=== PATIENT | female | born 1935 | race Caucasian/White ===

== ENCOUNTER 2017-01-30 14:05 | Inpatient (IN) | payer OTHER, MEDICAID ==
[2017-01-30] MEDS ORDERED: NS 1000 ML 1,000 ML ONE (15:57)
[2017-01-30 16:22] VITALS: BMI 33.3
[2017-01-30] MEDS ORDERED: NS 1000 ML 1,000 ML IV ONE (16:47)
[2017-01-30] MEDS ORDERED: NS 1000 ML 1,000 ML IV PRN (16:48)
[2017-01-30] MEDS ORDERED: NS 1000 ML 1,000 ML IV SCH (17:00)
[2017-01-30 18:58] LABS: BASOPHILS % (AUTO) 0.6 % (0.2-1.0); EOSINOPHILS # (AUTO) 0.2 x10^3/uL (0.0-0.2); EOSINOPHILS % (AUTO) 3.2 % (0.9-2.9); HEMATOCRIT 30.5 % (36.0-47.0); HEMOGLOBIN 10.2 g/dL (12.0-16.0); LYMPHOCYTES # (AUTO) 2.3 X10^3/uL (1.3-2.9); LYMPHOCYTES % (AUTO) 34.1 % (21.0-51.0); MEAN CORPUSCULAR HEMOGLOBIN 32.2 pg (27.0-34.0); MEAN CORPUSCULAR HGB CONC 33.5 g/dL (33.0-35.0); MEAN PLATELET VOLUME 8.9 fL (7.4-11.0); MONOCYTES # (AUTO) 0.8 x10^3/uL (0.3-0.8); MONOCYTES % (AUTO) 11.6 % (0.0-13.0); NEUTROPHILS # (AUTO) 3.4 x10^3/uL (2.2-4.8); NEUTROPHILS % (AUTO) 50.5 % (42.0-75.0); PLATELET COUNT 100 X10^3/uL (150.0-450.0); RED BLOOD COUNT 3.17 X10^6/uL (3.5-5.4); RED CELL DISTRIBUTION WIDTH 14.8 % (11.6-16.5); WHITE BLOOD COUNT 6.7 X10^3/uL (3.6-10.0)
[2017-01-30 19:06] LABS: CHLORIDE 109 mmol/L (98-107); SODIUM 144 mmol/L (136-145)
[2017-01-30 19:39] LABS: ALANINE AMINOTRANSFERASE 12 Units/L (12-78); ALBUMIN 2.4 g/dL (3.4-5.0); ALKALINE PHOSPHATASE 115 Units/L (46-116); ASPARTATE AMINO TRANSFERASE 19 Units/L (15-37); BLOOD UREA NITROGEN 73 mg/dL (7-18); CALCIUM 8.2 mg/dL (8.5-10.1); CARBON DIOXIDE 29.9 mmol/L (21-32); CKMB % 4.2 % (<4); COR CA(FOR HYPOALB) 9.5 mg/dL (8.5-10.1); COR NA(FOR HYPERGLY) 145 mmol/L (136-145); CREATINE KINASE 57 Units/L (26-192); CREATINE KINASE MB 2.4 ng/mL (0-4.0); CREATININE 3.62 mg/dL (0.55-1.02); TOTAL PROTEIN 6.8 g/dL (6.4-8.2); TROPONIN I < 0.02 ng/mL (0-1.5); eGFR BLACK RACES 16 (>60); eGFR NON BLACK RACES 13 (>60)
[2017-01-30 20:04] LABS: BILIRUBIN,URINE NEGATIVE (NEGATIVE); BLOOD/HEMOGLOBIN,URINE 4+ (NEGATIVE); GLUCOSE, URINE NEGATIVE (NEGATIVE); KETONES,URINE NEGATIVE (NEGATIVE); LEUKOCYTE ESTERASE ,URINE 3+ (NEGATIVE); NITRITES,URINE NEGATIVE (NEGATIVE); PROTEIN,URINE 3+ (NEGATIVE); UROBILINOGEN,URINE 1+ (NORMAL)
[2017-01-30 20:07] LABS: APPEARANCE,URINE TURBID (CLEAR); COLOR,URINE YELLOW (YELLOW)
[2017-01-30 20:12] LABS: BACTERIA,URINE 3+ /HPF (NEGATIVE); RBC,URINE TNTC /HPF (NEGATIVE); SQUAMOUS EPITHELIAL CELL,UR RARE /HPF (NEGATIVE)
[2017-01-30] MEDS ORDERED: DUONEB 0.5 MG/3 MG NEB SCH (21:00)
[2017-01-30] MEDS: NORCO 10/325 TAB PO PRN (21:25)
[2017-01-31 00:18] LABS: CREATINE KINASE 62 Units/L (26-192); CREATINE KINASE MB 3.1 ng/mL (0-4.0); TROPONIN I < 0.02 ng/mL (0-1.5)
[2017-01-31] MEDS: DUONEB 0.5 MG/3 MG NEB SCH ×5 (00:36→17:06)
[2017-01-31] MEDS: NS 1000 ML 1,000 ML IV SCH ×2 (04:45→21:16)
[2017-01-31 06:07] LABS: BASOPHILS % (AUTO) 0.2 % (0.2-1.0); EOSINOPHILS # (AUTO) 0.2 x10^3/uL (0.0-0.2); EOSINOPHILS % (AUTO) 3.4 % (0.9-2.9); HEMATOCRIT 28.6 % (36.0-47.0); HEMOGLOBIN 9.6 g/dL (12.0-16.0); LYMPHOCYTES # (AUTO) 2.9 X10^3/uL (1.3-2.9); LYMPHOCYTES % (AUTO) 40.2 % (21.0-51.0); MEAN CORPUSCULAR HEMOGLOBIN 32.2 pg (27.0-34.0); MEAN CORPUSCULAR HGB CONC 33.5 g/dL (33.0-35.0); MEAN CORPUSCULAR VOLUME 96.2 fL (80.0-100.0); MEAN PLATELET VOLUME 9.2 fL (7.4-11.0); MONOCYTES # (AUTO) 0.6 x10^3/uL (0.3-0.8); MONOCYTES % (AUTO) 8.7 % (0.0-13.0); NEUTROPHILS # (AUTO) 3.5 x10^3/uL (2.2-4.8); NEUTROPHILS % (AUTO) 47.5 % (42.0-75.0); PLATELET COUNT 98 X10^3/uL (150.0-450.0); RED BLOOD COUNT 2.97 X10^6/uL (3.5-5.4); RED CELL DISTRIBUTION WIDTH 14.6 % (11.6-16.5); WHITE BLOOD COUNT 7.3 X10^3/uL (3.6-10.0)
[2017-01-31 06:25] LABS: ALANINE AMINOTRANSFERASE 11 Units/L (12-78); ALBUMIN 2.3 g/dL (3.4-5.0); ALKALINE PHOSPHATASE 111 Units/L (46-116); ASPARTATE AMINO TRANSFERASE 19 Units/L (15-37); BLOOD UREA NITROGEN 66 mg/dL (7-18); CALCIUM 8.3 mg/dL (8.5-10.1); CARBON DIOXIDE 27.8 mmol/L (21-32); CHLORIDE 110 mmol/L (98-107); CKMB % 5.6 % (<4); COR CA(FOR HYPOALB) 9.7 mg/dL (8.5-10.1); CREATINE KINASE 50 Units/L (26-192); CREATINE KINASE MB 2.8 ng/mL (0-4.0); CREATININE 3.21 mg/dL (0.55-1.02); SODIUM 145 mmol/L (136-145); TOTAL PROTEIN 6.7 g/dL (6.4-8.2); TROPONIN I < 0.02 ng/mL (0-1.5); eGFR BLACK RACES 18 (>60); eGFR NON BLACK RACES 15 (>60)
--- NOTE | 2017-01-31 07:56 | DR.H&P ---
H&P - History & Physical for Day of: H&P Date: 01/30/17 - Chief Complaint Chief Complaint: AMS - Allergies Allergies/Adverse Reactions: Allergies Allergy/AdvReac Type Severity Reaction Status Date / Time aspirin Allergy Verified 01/30/17 15:42 diphenhydramine Allergy Verified 01/30/17 15:43 [From Benadryl] lisinopril Allergy Verified 01/30/17 15:43 zolpidem [From Ambien] Allergy Verified 01/30/17 15:42 - History of Present Illness History of Present Illness: The patient is a 81-year-old white female who is a resident of [facility]. Patient is noted by staff to have increased altered mental status. Patient had lab work performed which revealed an elevated creatinine. The patient did have a CT which did not reveal an acute finding at that time. Patient will be admitted secondary to increased confusion. - Past Medical History Past Medical History: COPD, GERD, Hypertension, PUD Additional Medical History: Lumbar DDD with hx FX - Past Surgical History Surgical History: Hysterectomy, Ortho Surgery Additional Surgical History: Posterior cervical and lumbar laminectomy, orif left ankle, egd - Social History Does patient currently use any type of tobacco product: No Have you used tobacco products in the last 12 months: No Type of Tobacco Use: None Does any household member use tobacco: No Alcohol Use: None Drug Use: None - Medications Home Medications: Alprazolam [Xanax 1 mg] 1 mg PO DAILY PRN 01/30/17 [History Confirmed 01/30/17] Amlodipine Besylate [Norvasc] 2.5 mg PO DAILY 01/30/17 [History Confirmed ] Benzonatate [TESSALON PERLES *] 1 tab PO Q8H PRN 01/30/17 [History Confirmed 02/06] Clonidine HCl [CATAPRES 0.1 MG TAB *] 1 tab PO DAILY 01/30/17 [History Confirmed 01/30/17] Doxepin HCl 1 tab PO HS 01/30/17 [History Confirmed 01/30/17] Duloxetine HCl [CYMBALTA 60 MG *] 1 tab PO HS 01/30/17 [History Confirmed ] Furosemide [LASIX TAB 40 MG *] 1 tab PO BID 01/30/17 [History Confirmed 01/30/17 ] Gabapentin [NEURONTIN CAP 300 mg *] 1 tab PO HS 01/30/17 [History Confirmed 02/06] Hydrocodone-Acet 10/325 mg [NORCO 10 MG/325 MG *] 1 tab PO Q6H PRN 01/30/17 [ History Confirmed 01/30/17] Ipratropium/Albuterol Nebule [DUONEB 0.5 MG/3 MG NEBULE *] 1 unit IN Q6H [History Confirmed 01/30/17] Meloxicam [Mobic] 1 tab PO DAILY 01/30/17 [History Confirmed 01/30/17] Metoprolol Tartrate 1 tab PO BID 01/30/17 [History Confirmed 01/30/17] Nystatin (Topical) [NYSTATIN TOP CRM *] 1 dose TOP Q12H PRN 01/30/17 [History Confirmed 01/30/17] Omeprazole Magnesium 1 tab PO DAILY 01/30/17 [History Confirmed 01/30/17] - Review of Systems Constitutional: Malaise Eyes: No Symptoms Reported ENT: No Symptoms Reported Respiratory: No Symptoms Reported Cardiovascular: No Symptoms Reported Gastrointestinal: No Symptoms Reported Genitourinary: No Symptoms Reported Musculoskeletal: No Symptoms Reported Skin: No Symptoms Reported Neurological: No Symptoms Reported - Physical Exam Vital Signs: Temperature 98.4 F Pulse Rate [Right Radial] 59 Pulse Rate 54 Respiratory Rate 18 Blood Pressure [Right Arm] 95/54 O2 Sat by Pulse Oximetry 98 Oriented: Person Eyes: Normal Ear: Normal Nose: Normal Throat: Normal Respiratory: Clear Throughout Cardiovascular: Bradycardia : Normal Auscultation: Bowel Sounds: Normal Palpation: Normal Tenderness: Normal Skin: Decreased Turgur Musculoskeletal: Back:Lumbar, Tender Psychiatric: Normal Mood Description: Calm Affect: Quiet Speech Pattern: Slurred - Assessment/Plan (1) Altered mental status Status: Acute Plan: CBC, CMP, urine, urine C&S, NS @ 80ml/hr x 1 liter (2) UTI (urinary tract infection) Status: Acute Plan: Urine culture. Rocephin 1gm IV Q Day (3) Acute on chronic kidney failure Status: Acute Plan: IVFs with NS, Monitor labs
[2017-01-31] MEDS ORDERED: NORCO 10/325 TAB PO PRN (08:01)
[2017-01-31] MEDS ORDERED: DUONEB 0.5 MG/3 MG IN SCH (08:15)
[2017-01-31] MEDS ORDERED: OMEPRAZOLE MAGNESIUM PO SCH (09:00)
[2017-01-31] MEDS: PriLOSEC PO SCH (09:51)
[2017-01-31] MEDS: ROCEPHIN VIAL 1 GM 1 GM in NS 50 ML IV + SPIKE MINIBAG* 50 ML IV SCH ×4 (09:51→09:52)
[2017-01-31] MEDS: NORCO 10/325 TAB PO PRN ×2 (11:09→21:05)
--- NOTE | 2017-01-31 11:55 | RAD ---
HISTORY: Difficulty breathing Study: Portable chest Comparison: None Findings: The heart is mildly enlarged. The pulmonary vessels are engorged centrally and more prominent . There are hazy perihilar and bibasilar interstitial and linear densities . No effusion is seen . There are Lewis rods along the thoracolumbar spine. IMPRESSION: Mild cardiomegaly and mild pulmonary edema Questionable mild atelectasis or early infiltrates along the lung bases. Reported By:
--- NOTE | 2017-01-31 18:42 | DR.H&P ---
H&P - History & Physical for Day of: H&P Date: 01/31/17 - Chief Complaint Chief Complaint: 81 WF ADMITTED ONE DAY AGO WITH GENERALIZED WEAKNESS AMS DUE TO UROSEPSIS. PT URINE CULTURE PENDING. PT CO LOWER BACK PAIN. PT ATE BREAKFAST THIS AM WITHOUT NAUSEA. PT STATES SHE STILL FEELS WEAK - Allergies Allergies/Adverse Reactions: Allergies Allergy/AdvReac Type Severity Reaction Status Date / Time aspirin Allergy Verified 01/30/17 15:42 diphenhydramine Allergy Verified 01/30/17 15:43 [From Benadryl] lisinopril Allergy Verified 01/30/17 15:43 zolpidem [From Ambien] Allergy Verified 01/30/17 15:42 - Past Medical History Past Medical History: COPD, GERD, Hypertension, PUD Additional Medical History: Lumbar DDD with hx FX - Past Surgical History Surgical History: Hysterectomy, Ortho Surgery Additional Surgical History: Posterior cervical and lumbar laminectomy, orif left ankle, egd - Social History Does patient currently use any type of tobacco product: No Have you used tobacco products in the last 12 months: No Type of Tobacco Use: None Does any household member use tobacco: No Alcohol Use: None Drug Use: None - Medications Home Medications: Alprazolam [Xanax 1 mg] 1 mg PO DAILY PRN 01/30/17 [History Confirmed 01/30/17] Amlodipine Besylate [Norvasc] 2.5 mg PO DAILY 01/30/17 [History Confirmed ] Benzonatate [TESSALON PERLES *] 1 tab PO Q8H PRN 01/30/17 [History Confirmed 02/06] Clonidine HCl [CATAPRES 0.1 MG TAB *] 1 tab PO DAILY 01/30/17 [History Confirmed 01/30/17] Doxepin HCl 1 tab PO HS 01/30/17 [History Confirmed 01/30/17] Duloxetine HCl [CYMBALTA 60 MG *] 1 tab PO HS 01/30/17 [History Confirmed ] Furosemide [LASIX TAB 40 MG *] 1 tab PO BID 01/30/17 [History Confirmed 01/30/17 ] Gabapentin [NEURONTIN CAP 300 mg *] 1 tab PO HS 01/30/17 [History Confirmed 02/06] Hydrocodone-Acet 10/325 mg [NORCO 10 MG/325 MG *] 1 tab PO Q6H PRN 01/30/17 [ History Confirmed 01/30/17] Ipratropium/Albuterol Nebule [DUONEB 0.5 MG/3 MG NEBULE *] 1 unit IN Q6H [History Confirmed 01/30/17] Meloxicam [Mobic] 1 tab PO DAILY 01/30/17 [History Confirmed 01/30/17] Metoprolol Tartrate 1 tab PO BID 01/30/17 [History Confirmed 01/30/17] Nystatin (Topical) [NYSTATIN TOP CRM *] 1 dose TOP Q12H PRN 01/30/17 [History Confirmed 01/30/17] Omeprazole Magnesium 1 tab PO DAILY 01/30/17 [History Confirmed 01/30/17] - Physical Exam Vital Signs: Temperature 97.5 F Pulse Rate [Right Radial] 85 Pulse Rate 68 Respiratory Rate 19 Blood Pressure [Right Arm] 121/63 O2 Sat by Pulse Oximetry 98 Oriented: Person
--- NOTE | 2017-01-31 18:46 | PCM.PROG ---
Progress Note - Progress Note for Day of Date: 01/31/17 - Subjective Subjective: 81 WF ADMITTED ONE DAY AGO WITH GENERALIZED WEAKNESS AMS DUE TO UROSEPSIS. PT URINE CULTURE PENDING. PT CO LOWER BACK PAIN. PT ATE BREAKFAST THIS AM WITHOUT NAUSEA. PT STATES SHE STILL FEELS WEAK - Past Medical Family Social History Past Med/Fam/Surg Hx: No changes since H&P Allergies: Allergies aspirin Allergy (Verified 01/30/17 15:42) diphenhydramine [From Benadryl] Allergy (Verified 01/30/17 15:43) lisinopril Allergy (Verified 01/30/17 15:43) zolpidem [From Ambien] Allergy (Verified 01/30/17 15:42) - Review of Systems ROS: No change since H&P - Vital Signs and I&O's Vital Signs: Temperature 97.5 F Pulse Rate [Right Radial] 85 Pulse Rate 68 Respiratory Rate 19 Blood Pressure [Right Arm] 121/63 O2 Sat by Pulse Oximetry 98 Intake and Output: Intake & Output 01/29/17 01/30/17 01/31/17 02/01/17 11:59 11:59 11:59 11:59 Intake Total 1447 1180 Output Total 1250 600 Balance 197 580 - Physical Exam Oriented: Person Eyes: Normal Ear: Normal Nose: Normal Throat: Normal Respiratory: Diminished Cardiovascular: Bradycardia : Normal Auscultation: Bowel Sounds: Normal Tenderness: Suprapubic Skin: Decreased Turgur Musculoskeletal: Back:Lumbar, Tender Psychiatric: Normal Mood Description: Calm Affect: Quiet Speech Pattern: Slurred - Laboratory and Diagnostics Result Diagrams: 01/31/17 05:25 01/31/17 05:25 Labs: 01/30/17 19:41 Urine,Catheterized Urine Culture - Preliminary Laboratory WBC 7.3 X10^3/uL (3.6-10.0) 01/31/17 05:25 RBC 2.97 X10^6/uL (3.5-5.4) L 01/31/17 05:25 Hgb 9.6 g/dL (12.0-16.0) L 01/31/17 05:25 Hct 28.6 % (36.0-47.0) L 01/31/17 05:25 MCV 96.2 fL (80.0-100.0) 01/31/17 05:25 MCH 32.2 pg (27.0-34.0) 01/31/17 05:25 MCHC 33.5 g/dL (33.0-35.0) 01/31/17 05:25 RDW 14.6 % (11.6-16.5) 01/31/17 05:25 Plt Count 98 X10^3/uL (150.0-450.0) L 01/31/17 05:25 Plt Count Comment Cancelled 01/31/17 05:25 MPV 9.2 fL (7.4-11.0) 01/31/17 05:25 Neut % 47.5 % (42.0-75.0) 01/31/17 05:25 Lymph % 40.2 % (21.0-51.0) 01/31/17 05:25 [place] % 8.7 % (0.0-13.0) 01/31/17 05:25 Eos % 3.4 % (0.9-2.9) H 01/31/17 05:25 Baso % 0.2 % (0.2-1.0) 01/31/17 05:25 Neut # 3.5 x10^3/uL (2.2-4.8) 01/31/17 05:25 Lymph # 2.9 X10^3/uL (1.3-2.9) 01/31/17 05:25 [place] # 0.6 x10^3/uL (0.3-0.8) 01/31/17 05:25 Eos # 0.2 x10^3/uL (0.0-0.2) 01/31/17 05:25 Baso # 0.0 X10^3/uL (0.0-0.1) 01/31/17 05:25 Absolute Nucleated RBC 0.0 /100WBC 01/31/17 05:25 Nucleated RBCs Cancelled 01/31/17 05:25 Atypical Lymphocytes Cancelled 01/31/17 05:25 Blast Cells Cancelled 01/31/17 05:25 Smudge Cells Cancelled 01/31/17 05:25 Toxic Granulation Cancelled 01/31/17 05:25 Dohle Bodies Cancelled 01/31/17 05:25 Fabby Rods Cancelled 01/31/17 05:25 Plt Clumps, EDTA Cancelled 01/31/17 05:25 Giant Platelets Cancelled 01/31/17 05:25 Plt Morphology Comment Cancelled 01/31/17 05:25 RBC Morphology Cancelled 01/31/17 05:25 Dimorphic RBCs Cancelled 01/31/17 05:25 Polychromasia Cancelled 01/31/17 05:25 Hypochromasia Cancelled 01/31/17 05:25 Poikilocytosis Cancelled 01/31/17 05:25 Basophilic Stippling Cancelled 01/31/17 05:25 Anisocytosis Cancelled 01/31/17 05:25 Microcytosis Cancelled 01/31/17 05:25 Macrocytosis Cancelled 01/31/17 05:25 Spherocytes Cancelled 01/31/17 05:25 Pappenheimer Bodies Cancelled 01/31/17 05:25 Sickle Cells Cancelled 01/31/17 05:25 Target Cells Cancelled 01/31/17 05:25 Tear Drop Cells Cancelled 01/31/17 05:25 Ovalocytes Cancelled 01/31/17 05:25 Stomatocytes Cancelled 01/31/17 05:25 Helmet Cells Cancelled 01/31/17 05:25 [place] Bodies Cancelled 01/31/17 05:25 [place] Rings Cancelled 01/31/17 05:25 [place] Cells Cancelled 01/31/17 05:25 Crenated Cell Cancelled 01/31/17 05:25 Acanthocytes (Spur) Cancelled 01/31/17 05:25 Rouleaux Cancelled 01/31/17 05:25 Schistocytes Cancelled 01/31/17 05:25 Sodium 145 mmol/L (136-145) 01/31/17 05:25 Corrected Sodium TNP 01/31/17 05:25 Potassium 4.6 mmol/L (3.5-5.1) 01/31/17 05:25 Chloride 110 mmol/L (98-107) H 01/31/17 05:25 Carbon Dioxide 27.8 mmol/L (21-32) 01/31/17 05:25 BUN 66 mg/dL (7-18) H 01/31/17 05:25 Creatinine 3.21 mg/dL (0.55-1.02) H 01/31/17 05:25 Est GFR (MDRD) Af Amer 18 (>60) L 01/31/17 05:25 Est GFR (MDRD) Non-Af 15 (>60) L 01/31/17 05:25 Glucose 90 mg/dL (65-99) 01/31/17 05:25 Calcium 8.3 mg/dL (8.5-10.1) L 01/31/17 05:25 Corrected Calcium 9.7 mg/dL (8.5-10.1) 01/31/17 05:25 Total Bilirubin 0.30 mg/dL (0.2-1.0) 01/31/17 05:25 AST 19 Units/L (15-37) 01/31/17 05:25 ALT 11 Units/L (12-78) L 01/31/17 05:25 Alkaline Phosphatase 111 Units/L (46-116) 01/31/17 05:25 Creatine Kinase 50 Units/L (26-192) 01/31/17 05:25 CK-MB (CK-2) 2.8 ng/mL (0-4.0) 01/31/17 05:25 CK/CKMB % Calc 5.6 % (<4) 01/31/17 05:25 Troponin I < 0.02 ng/mL (0-1.5) 01/31/17 05:25 Total Protein 6.7 g/dL (6.4-8.2) 01/31/17 05:25 Albumin 2.3 g/dL (3.4-5.0) L 01/31/17 05:25 Globulin 4.4 g/dL (2.5-4.5) 01/31/17 05:25 Albumin/Globulin Ratio 0.5 Ratio (1.1-2.1) L 01/31/17 05:25 Specimen Type Catherized urine 01/30/17 19:41 Urine Color Yellow (YELLOW) 01/30/17 19:41 Urine Appearance Turbid (CLEAR) 01/30/17 19:41 Urine pH 5.0 (5.0 - 8.0) 01/30/17 19:41 Ur Specific [place] 1.020 (1.000-1.030) 01/30/17 19:41 Urine Protein 3+ (NEGATIVE) 01/30/17 19:41 Urine Glucose (UA) Negative (NEGATIVE) 01/30/17 19:41 Urine Ketones Negative (NEGATIVE) 01/30/17 19:41 Urine Occult Blood 4+ (NEGATIVE) 01/30/17 19:41 Urine Nitrite Negative (NEGATIVE) 01/30/17 19:41 Urine Bilirubin Negative (NEGATIVE) 01/30/17 19:41 Urine Urobilinogen 1+ (NORMAL) 01/30/17 19:41 Ur Leukocyte Esterase 3+ (NEGATIVE) 01/30/17 19:41 Urine RBC Tntc /HPF (NEGATIVE) 01/30/17 19:41 Urine WBC Tntc /HPF (NEGATIVE) 01/30/17 19:41 Ur Squamous Epith Cells Rare /HPF (NEGATIVE) 01/30/17 19:41 Urine Bacteria 3+ /HPF (NEGATIVE) 01/30/17 19:41 Ur Culture Indicated? Yes/culture set up 01/30/17 19:41 - Plan (1) UTI (urinary tract infection) Status: Acute Plan: UTI WITH UROSEPSIS, Urine culture pending. Rocephin 1gm IV Q Day. continue gentle hydration, repeat am labs (2) Hypotension Status: Acute Plan: gentle hydration, diagnostic cardiac sonographer (3) Arthritis Status: Acute (4) Altered mental status Status: Acute Plan: CBC, CMP, urine, urine C&S, NS @ 80ml/hr x 1 liter
[2017-01-31] MEDS: CYMBALTA PO SCH (21:05)
[2017-02-01] MEDS: DUONEB 0.5 MG/3 MG NEB SCH ×4 (00:59→17:03)
[2017-02-01 06:41] LABS: BASOPHILS # (AUTO) 0.1 X10^3/uL (0.0-0.1); BASOPHILS % (AUTO) 0.9 % (0.2-1.0); EOSINOPHILS # (AUTO) 0.1 x10^3/uL (0.0-0.2); EOSINOPHILS % (AUTO) 0.7 % (0.9-2.9); HEMATOCRIT 30.2 % (36.0-47.0); HEMOGLOBIN 10.2 g/dL (12.0-16.0); LYMPHOCYTES # (AUTO) 1.4 X10^3/uL (1.3-2.9); LYMPHOCYTES % (AUTO) 16.9 % (21.0-51.0); MEAN CORPUSCULAR HEMOGLOBIN 32.2 pg (27.0-34.0); MEAN CORPUSCULAR HGB CONC 33.8 g/dL (33.0-35.0); MEAN CORPUSCULAR VOLUME 95.1 fL (80.0-100.0); MONOCYTES # (AUTO) 0.7 x10^3/uL (0.3-0.8); MONOCYTES % (AUTO) 7.9 % (0.0-13.0); NEUTROPHILS # (AUTO) 6.3 x10^3/uL (2.2-4.8); NEUTROPHILS % (AUTO) 73.6 % (42.0-75.0); PLATELET COUNT 116 X10^3/uL (150.0-450.0); RED BLOOD COUNT 3.18 X10^6/uL (3.5-5.4); RED CELL DISTRIBUTION WIDTH 14.8 % (11.6-16.5); WHITE BLOOD COUNT 8.5 X10^3/uL (3.6-10.0)
[2017-02-01 06:42] LABS: ALANINE AMINOTRANSFERASE 13 Units/L (12-78); ALBUMIN 2.4 g/dL (3.4-5.0); ALKALINE PHOSPHATASE 134 Units/L (46-116); ASPARTATE AMINO TRANSFERASE 25 Units/L (15-37); BLOOD UREA NITROGEN 52 mg/dL (7-18); CALCIUM 8.5 mg/dL (8.5-10.1); CARBON DIOXIDE 26.2 mmol/L (21-32); CHLORIDE 111 mmol/L (98-107); COR CA(FOR HYPOALB) 9.8 mg/dL (8.5-10.1); CREATININE 2.89 mg/dL (0.55-1.02); SODIUM 147 mmol/L (136-145); TOTAL PROTEIN 7.3 g/dL (6.4-8.2); eGFR BLACK RACES 20 (>60); eGFR NON BLACK RACES 17 (>60)
[2017-02-01] MEDS: ROCEPHIN VIAL 1 GM 1 GM in NS 50 ML IV + SPIKE MINIBAG* 50 ML IV SCH (08:09)
[2017-02-01] MEDS: PriLOSEC PO SCH (08:10)
[2017-02-01] MEDS ORDERED: BUTT CREAM (COMPOUND) ONE (10:38)
[2017-02-01] MEDS: NORCO 10/325 TAB PO PRN ×2 (13:47→21:12)
[2017-02-01] MEDS ORDERED: NS 1/2 1000 ML IV 1,000 ML IV ONE (21:04)
[2017-02-01] MEDS: CYMBALTA PO SCH (21:11)
[2017-02-01] MEDS: NS 1/2 1000 ML IV 1,000 ML IV SCH (21:11)
[2017-02-02] MEDS: DUONEB 0.5 MG/3 MG NEB SCH ×4 (01:01→17:17)
[2017-02-02 06:05] LABS: BASOPHILS % (AUTO) 0.5 % (0.2-1.0); EOSINOPHILS # (AUTO) 0.2 x10^3/uL (0.0-0.2); EOSINOPHILS % (AUTO) 1.9 % (0.9-2.9); HEMOGLOBIN 10.5 g/dL (12.0-16.0); LYMPHOCYTES # (AUTO) 2.2 X10^3/uL (1.3-2.9); LYMPHOCYTES % (AUTO) 28.1 % (21.0-51.0); MEAN CORPUSCULAR HEMOGLOBIN 32.2 pg (27.0-34.0); MEAN CORPUSCULAR HGB CONC 33.9 g/dL (33.0-35.0); MEAN CORPUSCULAR VOLUME 94.9 fL (80.0-100.0); MEAN PLATELET VOLUME 8.5 fL (7.4-11.0); MONOCYTES # (AUTO) 0.7 x10^3/uL (0.3-0.8); MONOCYTES % (AUTO) 8.8 % (0.0-13.0); NEUTROPHILS # (AUTO) 4.8 x10^3/uL (2.2-4.8); NEUTROPHILS % (AUTO) 60.7 % (42.0-75.0); PLATELET COUNT 117 X10^3/uL (150.0-450.0); RED BLOOD COUNT 3.26 X10^6/uL (3.5-5.4); RED CELL DISTRIBUTION WIDTH 14.7 % (11.6-16.5); WHITE BLOOD COUNT 7.9 X10^3/uL (3.6-10.0)
[2017-02-02 06:27] LABS: ALANINE AMINOTRANSFERASE 12 Units/L (12-78); ALBUMIN 2.4 g/dL (3.4-5.0); ALKALINE PHOSPHATASE 118 Units/L (46-116); ASPARTATE AMINO TRANSFERASE 25 Units/L (15-37); BLOOD UREA NITROGEN 36 mg/dL (7-18); CALCIUM 8.7 mg/dL (8.5-10.1); CARBON DIOXIDE 28.1 mmol/L (21-32); CHLORIDE 112 mmol/L (98-107); CREATININE 2.27 mg/dL (0.55-1.02); SODIUM 148 mmol/L (136-145); TOTAL PROTEIN 7.2 g/dL (6.4-8.2); eGFR BLACK RACES 27 (>60); eGFR NON BLACK RACES 22 (>60)
[2017-02-02] MEDS ORDERED: LASIX IVP ONE (08:00)
[2017-02-02] MEDS: ROCEPHIN VIAL 1 GM 1 GM in NS 50 ML IV + SPIKE MINIBAG* 50 ML IV SCH (08:25)
[2017-02-02] MEDS: PriLOSEC PO SCH (08:25)
[2017-02-02] MEDS: LOPRESSOR TAB 25 MG PO SCH ×3 (09:00→21:06)
[2017-02-02] MEDS: NORCO 10/325 TAB PO PRN (17:18)
[2017-02-02] MEDS ORDERED: NORVASC TAB 2.5 MG ONE (18:10)
[2017-02-02] MEDS: NORVASC TAB 2.5 MG PO SCH (18:13)
[2017-02-02] MEDS: XANAX PO PRN (18:13)
[2017-02-02] MEDS: CYMBALTA PO SCH (21:05)
[2017-02-03] MEDS: DUONEB 0.5 MG/3 MG NEB SCH ×4 (00:31→17:04)
[2017-02-03] MEDS: NORCO 10/325 TAB PO PRN ×2 (06:07→21:17)
[2017-02-03 06:10] LABS: BASOPHILS # (AUTO) 0.1 X10^3/uL (0.0-0.1); BASOPHILS % (AUTO) 0.8 % (0.2-1.0); EOSINOPHILS # (AUTO) 0.3 x10^3/uL (0.0-0.2); EOSINOPHILS % (AUTO) 3.9 % (0.9-2.9); HEMATOCRIT 28.5 % (36.0-47.0); HEMOGLOBIN 9.8 g/dL (12.0-16.0); LYMPHOCYTES # (AUTO) 2.7 X10^3/uL (1.3-2.9); MEAN CORPUSCULAR HEMOGLOBIN 32.5 pg (27.0-34.0); MEAN CORPUSCULAR HGB CONC 34.3 g/dL (33.0-35.0); MEAN CORPUSCULAR VOLUME 94.8 fL (80.0-100.0); MEAN PLATELET VOLUME 8.4 fL (7.4-11.0); MONOCYTES # (AUTO) 0.7 x10^3/uL (0.3-0.8); MONOCYTES % (AUTO) 8.4 % (0.0-13.0); NEUTROPHILS # (AUTO) 4.5 x10^3/uL (2.2-4.8); NEUTROPHILS % (AUTO) 53.9 % (42.0-75.0); PLATELET COUNT 117 X10^3/uL (150.0-450.0); RED BLOOD COUNT 3.01 X10^6/uL (3.5-5.4); RED CELL DISTRIBUTION WIDTH 15.3 % (11.6-16.5); WHITE BLOOD COUNT 8.3 X10^3/uL (3.6-10.0)
[2017-02-03 06:16] LABS: ALANINE AMINOTRANSFERASE 12 Units/L (12-78); ALBUMIN 2.3 g/dL (3.4-5.0); ALKALINE PHOSPHATASE 110 Units/L (46-116); ASPARTATE AMINO TRANSFERASE 23 Units/L (15-37); BLOOD UREA NITROGEN 28 mg/dL (7-18); CALCIUM 8.6 mg/dL (8.5-10.1); CARBON DIOXIDE 28.6 mmol/L (21-32); CHLORIDE 109 mmol/L (98-107); CREATININE 1.91 mg/dL (0.55-1.02); SODIUM 144 mmol/L (136-145); TOTAL PROTEIN 6.8 g/dL (6.4-8.2); eGFR BLACK RACES 33 (>60); eGFR NON BLACK RACES 27 (>60)
[2017-02-03] MEDS ORDERED: NS 1/2 1000 ML IV 1,000 ML IV ONE (06:24)
[2017-02-03] MEDS: NS 1/2 1000 ML IV 1,000 ML IV SCH ×2 (06:30→09:07)
[2017-02-03] MEDS ORDERED: NORVASC TAB 2.5 MG ONE (08:58)
[2017-02-03] MEDS: ROCEPHIN VIAL 1 GM 1 GM in NS 50 ML IV + SPIKE MINIBAG* 50 ML IV SCH (09:06)
[2017-02-03] MEDS: NORVASC TAB 2.5 MG PO SCH (09:07)
[2017-02-03] MEDS: LOPRESSOR TAB 25 MG PO SCH ×2 (09:07→21:17)
[2017-02-03] MEDS: PriLOSEC PO SCH (09:07)
[2017-02-03] MEDS: CYMBALTA PO SCH (21:17)
[2017-02-03] MEDS: XANAX PO PRN (21:20)
--- NOTE | 2017-02-03 21:55 | PCM.PROG ---
Progress Note - Progress Note for Day of Date: 02/03/17 - Subjective Subjective: 81 WF ADMITTED WITH GENERALIZED WEAKNESS AMS DUE TO UROSEPSIS. PT URINE CULTURE PENDING. PT CO LOWER BACK PAIN. PATIENT ALERT AND ANSWERS APPROPRIATELY. STATES SHE DOES FEEL BETTER. - Past Medical Family Social History Past Med/Fam/Surg Hx: No changes since H&P Allergies: Allergies aspirin Allergy (Verified 01/30/17 15:42) diphenhydramine [From Benadryl] Allergy (Verified 01/30/17 15:43) lisinopril Allergy (Verified 01/30/17 15:43) zolpidem [From Ambien] Allergy (Verified 01/30/17 15:42) - Review of Systems ROS: No change since H&P - Vital Signs and I&O's Vital Signs: Temperature 98.9 F Pulse Rate [Right Radial] 91 Pulse Rate 88 Respiratory Rate 18 Blood Pressure [Right Arm] 141/65 O2 Sat by Pulse Oximetry 94 Intake and Output: Intake & Output 02/01/17 02/02/17 02/03/17 02/04/17 11:59 11:59 11:59 11:59 Intake Total 2250 1632 1280 544 Output Total 1800 2350 2680 750 Balance 648 -972 -9611 -244 - Physical Exam Oriented: Person Eyes: Normal Ear: Normal Nose: Normal Throat: Normal Respiratory: Diminished Cardiovascular: Bradycardia : Normal Auscultation: Bowel Sounds: Normal Palpation: Normal Tenderness: Suprapubic Skin: Decreased Turgur Musculoskeletal: Back:Lumbar, Tender Psychiatric: Normal Mood Description: Calm Affect: Quiet Speech Pattern: Clear, Appropriate - Laboratory and Diagnostics Result Diagrams: 02/03/17 04:05 02/03/17 04:05 Labs: 01/30/17 19:41 Urine,Catheterized Urine Culture - Final Escherichia Coli 01/30/17 17:51 Blood Blood Culture - Preliminary 01/30/17 17:57 Blood Blood Culture - Preliminary Laboratory WBC 8.3 X10^3/uL (3.6-10.0) 02/03/17 04:05 RBC 3.01 X10^6/uL (3.5-5.4) L 02/03/17 04:05 Hgb 9.8 g/dL (12.0-16.0) L 02/03/17 04:05 Hct 28.5 % (36.0-47.0) L 02/03/17 04:05 MCV 94.8 fL (80.0-100.0) 02/03/17 04:05 MCH 32.5 pg (27.0-34.0) 02/03/17 04:05 MCHC 34.3 g/dL (33.0-35.0) 02/03/17 04:05 RDW 15.3 % (11.6-16.5) 02/03/17 04:05 Plt Count 117 X10^3/uL (150.0-450.0) L 02/03/17 04:05 Plt Count Comment Cancelled 01/31/17 05:25 MPV 8.4 fL (7.4-11.0) 02/03/17 04:05 Neut % 53.9 % (42.0-75.0) 02/03/17 04:05 Lymph % 33.0 % (21.0-51.0) 02/03/17 04:05 [place] % 8.4 % (0.0-13.0) 02/03/17 04:05 Eos % 3.9 % (0.9-2.9) H 02/03/17 04:05 Baso % 0.8 % (0.2-1.0) 02/03/17 04:05 Neut # 4.5 x10^3/uL (2.2-4.8) 02/03/17 04:05 Lymph # 2.7 X10^3/uL (1.3-2.9) 02/03/17 04:05 [place] # 0.7 x10^3/uL (0.3-0.8) 02/03/17 04:05 Eos # 0.3 x10^3/uL (0.0-0.2) H 02/03/17 04:05 Baso # 0.1 X10^3/uL (0.0-0.1) 02/03/17 04:05 Absolute Nucleated RBC 0.1 /100WBC 02/03/17 04:05 Nucleated RBCs Cancelled 01/31/17 05:25 Atypical Lymphocytes Cancelled 01/31/17 05:25 Blast Cells Cancelled 01/31/17 05:25 Smudge Cells Cancelled 01/31/17 05:25 Toxic Granulation Cancelled 01/31/17 05:25 Dohle Bodies Cancelled 01/31/17 05:25 Fabby Rods Cancelled 01/31/17 05:25 Plt Clumps, EDTA Cancelled 01/31/17 05:25 Giant Platelets Cancelled 01/31/17 05:25 Plt Morphology Comment Cancelled 01/31/17 05:25 RBC Morphology Cancelled 01/31/17 05:25 Dimorphic RBCs Cancelled 01/31/17 05:25 Polychromasia Cancelled 01/31/17 05:25 Hypochromasia Cancelled 01/31/17 05:25 Poikilocytosis Cancelled 01/31/17 05:25 Basophilic Stippling Cancelled 01/31/17 05:25 Anisocytosis Cancelled 01/31/17 05:25 Microcytosis Cancelled 01/31/17 05:25 Macrocytosis Cancelled 01/31/17 05:25 Spherocytes Cancelled 01/31/17 05:25 Pappenheimer Bodies Cancelled 01/31/17 05:25 Sickle Cells Cancelled 01/31/17 05:25 Target Cells Cancelled 01/31/17 05:25 Tear Drop Cells Cancelled 01/31/17 05:25 Ovalocytes Cancelled 01/31/17 05:25 Stomatocytes Cancelled 01/31/17 05:25 Helmet Cells Cancelled 01/31/17 05:25 [place] Bodies Cancelled 01/31/17 05:25 [place] Rings Cancelled 01/31/17 05:25 [place] Cells Cancelled 01/31/17 05:25 Crenated Cell Cancelled 01/31/17 05:25 Acanthocytes (Spur) Cancelled 01/31/17 05:25 Rouleaux Cancelled 01/31/17 05:25 Schistocytes Cancelled 01/31/17 05:25 Sodium 144 mmol/L (136-145) 02/03/17 04:05 Corrected Sodium TNP 02/03/17 04:05 Potassium 3.9 mmol/L (3.5-5.1) 02/03/17 04:05 Chloride 109 mmol/L (98-107) H 02/03/17 04:05 Carbon Dioxide 28.6 mmol/L (21-32) 02/03/17 04:05 BUN 28 mg/dL (7-18) H 02/03/17 04:05 Creatinine 1.91 mg/dL (0.55-1.02) H 02/03/17 04:05 Est GFR (MDRD) Af Amer 33 (>60) L 02/03/17 04:05 Est GFR (MDRD) Non-Af 27 (>60) L 02/03/17 04:05 Glucose 73 mg/dL (65-99) 02/03/17 04:05 Calcium 8.6 mg/dL (8.5-10.1) 02/03/17 04:05 Corrected Calcium 10.0 mg/dL (8.5-10.1) 02/03/17 04:05 Total Bilirubin 0.40 mg/dL (0.2-1.0) 02/03/17 04:05 AST 23 Units/L (15-37) 02/03/17 04:05 ALT 12 Units/L (12-78) 02/03/17 04:05 Alkaline Phosphatase 110 Units/L (46-116) 02/03/17 04:05 Creatine Kinase 50 Units/L (26-192) 01/31/17 05:25 CK-MB (CK-2) 2.8 ng/mL (0-4.0) 01/31/17 05:25 CK/CKMB % Calc 5.6 % (<4) 01/31/17 05:25 Troponin I < 0.02 ng/mL (0-1.5) 01/31/17 05:25 Total Protein 6.8 g/dL (6.4-8.2) 02/03/17 04:05 Albumin 2.3 g/dL (3.4-5.0) L 02/03/17 04:05 Globulin 4.5 g/dL (2.5-4.5) 02/03/17 04:05 Albumin/Globulin Ratio 0.5 Ratio (1.1-2.1) L 02/03/17 04:05 Specimen Type Catherized urine 01/30/17 19:41 Urine Color Yellow (YELLOW) 01/30/17 19:41 Urine Appearance Turbid (CLEAR) 01/30/17 19:41 Urine pH 5.0 (5.0 - 8.0) 01/30/17 19:41 Ur Specific [place] 1.020 (1.000-1.030) 01/30/17 19:41 Urine Protein 3+ (NEGATIVE) 01/30/17 19:41 Urine Glucose (UA) Negative (NEGATIVE) 01/30/17 19:41 Urine Ketones Negative (NEGATIVE) 01/30/17 19:41 Urine Occult Blood 4+ (NEGATIVE) 01/30/17 19:41 Urine Nitrite Negative (NEGATIVE) 01/30/17 19:41 Urine Bilirubin Negative (NEGATIVE) 01/30/17 19:41 Urine Urobilinogen 1+ (NORMAL) 01/30/17 19:41 Ur Leukocyte Esterase 3+ (NEGATIVE) 01/30/17 19:41 Urine RBC Tntc /HPF (NEGATIVE) 01/30/17 19:41 Urine WBC Tntc /HPF (NEGATIVE) 01/30/17 19:41 Ur Squamous Epith Cells Rare /HPF (NEGATIVE) 01/30/17 19:41 Urine Bacteria 3+ /HPF (NEGATIVE) 01/30/17 19:41 Ur Culture Indicated? Yes/culture set up 01/30/17 19:41 - Plan (1) Altered mental status Status: Acute Plan: mONITOR LABS, CONTINUE IV ANTIBIOTICS. (2) UTI (urinary tract infection) Status: Acute Plan: UTI WITH UROSEPSIS, Urine culture pending. Rocephin 1gm IV Q Day. continue gentle hydration, repeat am labs (3) Acute on chronic kidney failure Status: Acute Plan: IVFs with NS, Monitor labs
[2017-02-04] MEDS: DUONEB 0.5 MG/3 MG NEB SCH ×5 (00:37→18:35)
[2017-02-04 05:23] LABS: BLOOD UREA NITROGEN 21 mg/dL (7-18); CALCIUM 8.5 mg/dL (8.5-10.1); CARBON DIOXIDE 26.8 mmol/L (21-32); CHLORIDE 108 mmol/L (98-107); CREATININE 1.74 mg/dL (0.55-1.02); SODIUM 142 mmol/L (136-145); eGFR BLACK RACES 36 (>60); eGFR NON BLACK RACES 30 (>60)
[2017-02-04 05:28] LABS: BASOPHILS % (AUTO) 0.6 % (0.2-1.0); EOSINOPHILS # (AUTO) 0.3 x10^3/uL (0.0-0.2); EOSINOPHILS % (AUTO) 4.6 % (0.9-2.9); HEMATOCRIT 27.8 % (36.0-47.0); HEMOGLOBIN 9.4 g/dL (12.0-16.0); LYMPHOCYTES # (AUTO) 2.4 X10^3/uL (1.3-2.9); LYMPHOCYTES % (AUTO) 32.8 % (21.0-51.0); MEAN CORPUSCULAR HEMOGLOBIN 32.2 pg (27.0-34.0); MEAN CORPUSCULAR HGB CONC 33.8 g/dL (33.0-35.0); MEAN CORPUSCULAR VOLUME 95.2 fL (80.0-100.0); MEAN PLATELET VOLUME 8.5 fL (7.4-11.0); MONOCYTES # (AUTO) 0.7 x10^3/uL (0.3-0.8); MONOCYTES % (AUTO) 9.4 % (0.0-13.0); NEUTROPHILS # (AUTO) 3.9 x10^3/uL (2.2-4.8); NEUTROPHILS % (AUTO) 52.6 % (42.0-75.0); PLATELET COUNT 112 X10^3/uL (150.0-450.0); RED BLOOD COUNT 2.92 X10^6/uL (3.5-5.4); WHITE BLOOD COUNT 7.4 X10^3/uL (3.6-10.0)
[2017-02-04] MEDS ORDERED: NORVASC TAB 2.5 MG ONE (09:57)
[2017-02-04] MEDS: PriLOSEC PO SCH (10:46)
[2017-02-04] MEDS: NORVASC TAB 2.5 MG PO SCH (10:46)
[2017-02-04] MEDS: LOPRESSOR TAB 25 MG PO SCH (10:46)
[2017-02-04] MEDS: NS 1/2 1000 ML IV 1,000 ML IV SCH (10:46)
[2017-02-04] MEDS: ROCEPHIN VIAL 1 GM 1 GM in NS 50 ML IV + SPIKE MINIBAG* 50 ML IV SCH (10:46)
[2017-02-04 16:59] VITALS: BP 137/65
== END 2017-02-04 19:30 | DRG 689 ==
LOC: ICU 14:05 → OBSVTOIN 14:05
PROVIDERS: ADMIT Internal Medicine; ATTEND Internal Medicine
DX: N39.0 Urinary tract infection, site not specified (principal); J81.0 Acute pulmonary edema; N17.8 Other acute kidney failure; R41.82 Altered mental status, unspecified; I95.89 Other hypotension; R94.4 Abnormal results of kidney function studies; K21.9 Gastro-esophageal reflux disease without esophagitis; I12.9 Hypertensive chronic kidney disease with stage 1 through stage 4 chronic kidney disease, or unspecified chronic kidney disease; N18.9 Chronic kidney disease, unspecified; R53.1 Weakness; M13.89 Other specified arthritis, multiple sites; M54.5 Low back pain; B96.29 Other Escherichia coli [E. coli] as the cause of diseases classified elsewhere
CPT/HCPCS: 36415; 70450; 71010; 80048; 80053; 81001; 82550; 82553; 84484; 85025; 87040; 87086; 87088; 87186; 93005; 93010; 94640; A4216; A4222; J0696; J1940; J7620

== ENCOUNTER 2017-03-14 21:54 | Inpatient (IN) | payer OTHER, MEDICAID ==
[2017-03-14] MEDS ORDERED: ROCEPHIN VIAL 1 GM 1 GM in NS 50 ML IV + SPIKE MINIBAG* 50 ML IV SCH (22:15)
[2017-03-14 22:24] LABS: ABG BASE EXCESS 8.7 mmol/L (-2.0-2.0)
[2017-03-14 22:25] LABS: ABG ALLEN TEST POS; ABG HCO3 35.3 mmol/L (22-26); FRACTIONATED INSPIRED OXYGEN 21
[2017-03-14 22:48] LABS: BASOPHILS % (AUTO) 0.5 % (0.2-1.0); EOSINOPHILS # (AUTO) 0.1 x10^3/uL (0.0-0.2); HEMATOCRIT 24.6 % (36.0-47.0); HEMOGLOBIN 8.4 g/dL (12.0-16.0); LYMPHOCYTES # (AUTO) 2.5 X10^3/uL (1.3-2.9); LYMPHOCYTES % (AUTO) 29.2 % (21.0-51.0); MEAN CORPUSCULAR HEMOGLOBIN 32.2 pg (27.0-34.0); MEAN CORPUSCULAR VOLUME 94.7 fL (80.0-100.0); MEAN PLATELET VOLUME 8.5 fL (7.4-11.0); MONOCYTES # (AUTO) 0.7 x10^3/uL (0.3-0.8); MONOCYTES % (AUTO) 7.8 % (0.0-13.0); NEUTROPHILS # (AUTO) 5.3 x10^3/uL (2.2-4.8); NEUTROPHILS % (AUTO) 61.5 % (42.0-75.0); PLATELET COUNT 115 X10^3/uL (150.0-450.0); RED CELL DISTRIBUTION WIDTH 19.6 % (11.6-16.5); WHITE BLOOD COUNT 8.6 X10^3/uL (3.6-10.0)
[2017-03-14] MEDS ORDERED: NS 1000 ML 1,000 ML IV SCH (23:00)
[2017-03-14 23:11] LABS: ALANINE AMINOTRANSFERASE 13 Units/L (12-78); ALBUMIN 2.1 g/dL (3.4-5.0); ALKALINE PHOSPHATASE 180 Units/L (46-116); ASPARTATE AMINO TRANSFERASE 26 Units/L (15-37); BLOOD UREA NITROGEN 26 mg/dL (7-18); CALCIUM 7.9 mg/dL (8.5-10.1); CARBON DIOXIDE 30.6 mmol/L (21-32); CHLORIDE 104 mmol/L (98-107); COR CA(FOR HYPOALB) 9.4 mg/dL (8.5-10.1); CREATININE 1.94 mg/dL (0.55-1.02); MAGNESIUM 2.2 mg/dL (1.7-2.9); SODIUM 141 mmol/L (136-145); TOTAL PROTEIN 6.6 g/dL (6.4-8.2); TSH (3RD GENERATION) 5.035 uIU/mL (0.358-3.74); eGFR BLACK RACES 32 (>60); eGFR NON BLACK RACES 26 (>60)
[2017-03-14] MEDS ORDERED: D50W ABBOJECT SYR ONE (23:21)
--- NOTE | 2017-03-14 23:26 | CT ---
CT head without contrast Indication: Altered mental status Technique: Helical CT images of the brain were obtained without IV contrast. Reformatted images in th e coronal and sagittal planes were also generated for review. Comparison: 01/31/2017 Findings: There is no intracranial hemorrhage, visible acute infarction, focal or generalized edema, extra-axial collection, hydrocephalus or mass. There is stable age-appropriate cerebral atrophy with proportional compensatory ventricular and sulcal enlargement. Moderate periventricular and subcortica l white matter microangiopathic disease also appears similar. The visualized paranasal sinuses and ma stoid air cells are clear. No acute osseous or soft tissue abnormality is identified. Impression: No acute intracranial abnormality identified. Stable age-appropriate atrophy and chronic microangiopathic disease. Reported By:
[2017-03-14] MEDS ORDERED: D50W ABBOJECT SYR IV ONE (23:31)
[2017-03-14] MEDS ORDERED: NS 50 ML IV 50 ML IV ONE (23:37)
[2017-03-14] MEDS ORDERED: ROCEPHIN VIAL 1 GM ONE (23:37)
[2017-03-15 01:07] LABS: BILIRUBIN,URINE NEGATIVE (NEGATIVE); BLOOD/HEMOGLOBIN,URINE 2+ (NEGATIVE); GLUCOSE, URINE NEGATIVE (NEGATIVE); KETONES,URINE NEGATIVE (NEGATIVE); LEUKOCYTE ESTERASE ,URINE 3+ (NEGATIVE); NITRITES,URINE NEGATIVE (NEGATIVE); PROTEIN,URINE 1+ (NEGATIVE); UROBILINOGEN,URINE NORMAL (NORMAL)
[2017-03-15] MEDS ORDERED: NS 1000 ML 1,000 ML IV SCH (01:15)
[2017-03-15 01:25] LABS: APPEARANCE,URINE CLOUDY (CLEAR); BACTERIA,URINE 3+ /HPF (NEGATIVE); COLOR,URINE YELLOW (YELLOW); RBC,URINE 20-30 /HPF (NEGATIVE); SQUAMOUS EPITHELIAL CELL,UR RARE /HPF (NEGATIVE)
[2017-03-15] MEDS ORDERED: D50W ABBOJECT SYR IV ONE (02:05)
[2017-03-15] MEDS ORDERED: D50W ABBOJECT SYR ONE ×2 (02:06→05:32)
[2017-03-15] MEDS ORDERED: D5W 1000 ML IV 1,000 ML IV SCH ×3 (03:00→14:00)
[2017-03-15 04:49] LABS: BASOPHILS # (AUTO) 0.1 X10^3/uL (0.0-0.1); BASOPHILS % (AUTO) 1.8 % (0.2-1.0); EOSINOPHILS # (AUTO) 0.1 x10^3/uL (0.0-0.2); EOSINOPHILS % (AUTO) 0.9 % (0.9-2.9); HEMATOCRIT 21.1 % (36.0-47.0); HEMOGLOBIN 7.1 g/dL (12.0-16.0); LYMPHOCYTES # (AUTO) 1.3 X10^3/uL (1.3-2.9); LYMPHOCYTES % (AUTO) 19.6 % (21.0-51.0); MEAN CORPUSCULAR HEMOGLOBIN 31.8 pg (27.0-34.0); MEAN CORPUSCULAR HGB CONC 33.6 g/dL (33.0-35.0); MEAN CORPUSCULAR VOLUME 94.7 fL (80.0-100.0); MEAN PLATELET VOLUME 8.8 fL (7.4-11.0); MONOCYTES # (AUTO) 0.4 x10^3/uL (0.3-0.8); MONOCYTES % (AUTO) 6.3 % (0.0-13.0); NEUTROPHILS # (AUTO) 4.9 x10^3/uL (2.2-4.8); NEUTROPHILS % (AUTO) 71.4 % (42.0-75.0); PLATELET COUNT 90 X10^3/uL (150.0-450.0); RED BLOOD COUNT 2.23 X10^6/uL (3.5-5.4); RED CELL DISTRIBUTION WIDTH 19.3 % (11.6-16.5); WHITE BLOOD COUNT 6.8 X10^3/uL (3.6-10.0)
[2017-03-15 04:57] LABS: ALANINE AMINOTRANSFERASE 11 Units/L (12-78); ALBUMIN 1.8 g/dL (3.4-5.0); ALKALINE PHOSPHATASE 146 Units/L (46-116); ASPARTATE AMINO TRANSFERASE 22 Units/L (15-37); BLOOD UREA NITROGEN 30 mg/dL (7-18); CALCIUM 7.8 mg/dL (8.5-10.1); CARBON DIOXIDE 29.1 mmol/L (21-32); CHLORIDE 106 mmol/L (98-107); COR CA(FOR HYPOALB) 9.6 mg/dL (8.5-10.1); SODIUM 142 mmol/L (136-145); TOTAL PROTEIN 5.7 g/dL (6.4-8.2); eGFR BLACK RACES 35 (>60); eGFR NON BLACK RACES 29 (>60)
[2017-03-15 04:59] LABS: LACTIC ACID 0.6 mmol/L (0.4-2.0)
[2017-03-15] MEDS: D5W 1000 ML IV 1,000 ML IV SCH ×4 (05:05→23:37)
[2017-03-15 05:39] LABS: ANISOCYTOSIS SLIGHT; PLATELET MORPHOLOGY COMMENT NORMAL (NORMAL)
[2017-03-15] MEDS: D50W ABBOJECT SYR IV PRN ×9 (05:40→22:30)
[2017-03-15 06:17] LABS: ABG BASE EXCESS 8.2 mmol/L (-2.0-2.0)
[2017-03-15 06:18] LABS: ABG HCO3 33.4 mmol/L (22-26)
[2017-03-15 06:19] LABS: ABG ALLEN TEST POS
[2017-03-15] MEDS: ROCEPHIN VIAL 1 GM 1 GM in NS 100 ML IV + SPIKE MINIBAG* 100 ML IV SCH (08:57)
[2017-03-15] MEDS ORDERED: NS 100 ML IV 100 ML IV ONE (10:52)
[2017-03-15] MEDS ORDERED: TOBRAMYCIN SULFATE ONE (10:52)
[2017-03-15] MEDS: SOLU-Medrol 125 MG VIAL IVP SCH (10:59)
[2017-03-15] MEDS ORDERED: TOBRAMYCIN SULFATE 120 MG in NS 100 ML IV 100 ML IV SCH (11:00)
[2017-03-15 11:38] LABS: BILIRUBIN,URINE NEGATIVE (NEGATIVE); BLOOD/HEMOGLOBIN,URINE 2+ (NEGATIVE); GLUCOSE, URINE NEGATIVE (NEGATIVE); KETONES,URINE NEGATIVE (NEGATIVE); LEUKOCYTE ESTERASE ,URINE 3+ (NEGATIVE); NITRITES,URINE POSITIVE (NEGATIVE); PROTEIN,URINE 2+ (NEGATIVE); UROBILINOGEN,URINE NORMAL (NORMAL)
[2017-03-15 11:47] LABS: HEMOGLOBIN 7.1 g/dL (12.0-16.0)
[2017-03-15 11:53] LABS: APPEARANCE,URINE CLOUDY (CLEAR); BACTERIA,URINE 1+ /HPF (NEGATIVE); COLOR,URINE YELLOW (YELLOW); SQUAMOUS EPITHELIAL CELL,UR FEW /HPF (NEGATIVE)
[2017-03-15] MEDS: DEXTROSE 10% 1,000 ML IV SCH (11:58)
[2017-03-15] MEDS ORDERED: TYLENOL 325 MG TAB PO PRN (23:35)
[2017-03-16] MEDS: D50W ABBOJECT SYR IV PRN ×10 (00:27→20:52)
[2017-03-16] MEDS: DEXTROSE 10% 1,000 ML IV SCH ×2 (01:22→18:52)
[2017-03-16] MEDS ORDERED: NS 500 ML IV 500 ML IV SCH (03:00)
[2017-03-16] MEDS ORDERED: D50W ABBOJECT SYR ONE ×2 (06:51→09:48)
[2017-03-16] MEDS: D5W 1000 ML IV 1,000 ML IV SCH ×3 (08:27→18:36)
[2017-03-16] MEDS: ROCEPHIN VIAL 1 GM 1 GM in NS 100 ML IV + SPIKE MINIBAG* 100 ML IV SCH ×2 (08:27→11:04)
[2017-03-16] MEDS: SOLU-Medrol 125 MG VIAL IVP SCH ×2 (08:28→11:04)
[2017-03-16] MEDS ORDERED: TYLENOL 325 MG TAB PO PRN (08:49)
[2017-03-16] MEDS ORDERED: TOBRAMYCIN SULFATE 120 MG in NS 100 ML IV 100 ML IV SCH (09:00)
[2017-03-16] MEDS: TOBRAMYCIN SULFATE 120 MG in NS 100 ML IV 100 ML IV SCH (10:00)
[2017-03-16 10:51] LABS: BASOPHILS # (AUTO) 0.1 X10^3/uL (0.0-0.1); BASOPHILS % (AUTO) 0.9 % (0.2-1.0); EOSINOPHILS % (AUTO) 0.3 % (0.9-2.9); HEMATOCRIT 23.6 % (36.0-47.0); HEMOGLOBIN 7.7 g/dL (12.0-16.0); LYMPHOCYTES # (AUTO) 1.4 X10^3/uL (1.3-2.9); LYMPHOCYTES % (AUTO) 11.7 % (21.0-51.0); MEAN CORPUSCULAR HEMOGLOBIN 31.4 pg (27.0-34.0); MEAN CORPUSCULAR HGB CONC 32.8 g/dL (33.0-35.0); MEAN CORPUSCULAR VOLUME 95.7 fL (80.0-100.0); MEAN PLATELET VOLUME 10.5 fL (7.4-11.0); MONOCYTES # (AUTO) 0.3 x10^3/uL (0.3-0.8); MONOCYTES % (AUTO) 2.2 % (0.0-13.0); NEUTROPHILS # (AUTO) 10.5 x10^3/uL (2.2-4.8); NEUTROPHILS % (AUTO) 84.9 % (42.0-75.0); PLATELET COUNT 120 X10^3/uL (150.0-450.0); RED BLOOD COUNT 2.46 X10^6/uL (3.5-5.4); RED CELL DISTRIBUTION WIDTH 19.5 % (11.6-16.5); WHITE BLOOD COUNT 12.3 X10^3/uL (3.6-10.0)
[2017-03-16 11:01] LABS: ALBUMIN 1.5 g/dL (3.4-5.0); CALCIUM 7.1 mg/dL (8.5-10.1); COR CA(FOR HYPOALB) 9.1 mg/dL (8.5-10.1); CREATININE 1.62 mg/dL (0.55-1.02); TOTAL PROTEIN 5.1 g/dL (6.4-8.2)
[2017-03-16 11:26] LABS: PLATELET MORPHOLOGY COMMENT NORMAL (NORMAL)
[2017-03-16 14:48] VITALS: BMI 37.3
[2017-03-16] MEDS ORDERED: CATAPRES TAB 0.1 MG PO PRN (18:30)
[2017-03-16] MEDS: CYMBALTA PO SCH (20:16)
[2017-03-16] MEDS: XANAX PO PRN (20:16)
[2017-03-16] MEDS: LASIX PO SCH (20:16)
[2017-03-16] MEDS: NORCO 10/325 TAB PO PRN (21:20)
[2017-03-17] MEDS: D50W ABBOJECT SYR IV PRN ×2 (01:45→04:30)
[2017-03-17] MEDS ORDERED: NS 500 ML IV 500 ML IV SCH (03:00)
[2017-03-17] MEDS: LASIX PO SCH ×2 (08:56→17:09)
[2017-03-17] MEDS: PriLOSEC PO SCH (08:57)
[2017-03-17] MEDS: SOLU-Medrol 125 MG VIAL IVP SCH (08:57)
[2017-03-17] MEDS: ROCEPHIN VIAL 1 GM 1 GM in NS 100 ML IV + SPIKE MINIBAG* 100 ML IV SCH (08:58)
[2017-03-17] MEDS: TOBRAMYCIN SULFATE 120 MG in NS 100 ML IV 100 ML IV SCH (10:00)
[2017-03-17] MEDS ORDERED: MAALOX or MYLANTA PO PRN (14:46)
[2017-03-17] MEDS: NORCO 10/325 TAB PO PRN (14:52)
--- NOTE | 2017-03-17 15:22 | CT ---
HISTORY: Low blood sugar and abnormal CT chest. Study: CT abdomen and pelvis without contrast Comparison: None. Technique: Multiple axial images of the abdomen and pelvis were obtained from the lung bases to the pubic symphy sis without the administration of IV contrast. Dose reduction techniques including Automated Exposur e Control (AEC) and adjustment of mA and kV were utilized. Findings: Limited study secondary to lack of IV and oral contrast. Moderate right and small left pleural effusions. Associated compressive atelectasis versus early infi ltrate. Streak artifact from lumbar hardware somewhat limits evaluation of the abdomen and pelvis. Sl ightly nodular appearance to the liver. No obvious liver lesions. Hyperdense appearing liver with Megan nsfield units of 90. The gallbladder is surgically absent. The visualized spleen and adrenal glands a ppear normal. The kidneys are small, which may represent chronic renal disease. No obvious kidney les ions. Free fluid is seen about a slightly thickened pancreas. No obvious pancreatic lesions. Moderat e to large amount of abdominal ascites. No obvious free air or pathologic lymphadenopathy. Limited ev aluation of the bowel secondary to collapse and lack of oral contrast. The large and small bowel are otherwise unremarkable. The appendix is not well seen. The uterus and ovaries appear surgically absen t. The bladder is decompressed with a Marti catheter and not well evaluated. Postsurgical changes of the thoracolumbar spine. The hardware appears intact. Multiple remote appearing lumbar compression fr actures. No obvious acute fracture or listhesis. No aggressive osseous lesions. IMPRESSION: 1. Marked abdominal ascites, cirrhotic appearance of the liver, and hyperdense liver tissue. This may represent portal hypertension and cirrhosis of the liver secondary to underlying hemochromatosis, th alassemia, amiodarone hepatotoxicity, or other process. Recommend clinical/laboratory correlation. No obvious suspicious liver lesions. 2. Thickening of the pancreas with associated surrounding soft tissue edema/fluid. This may be second callie to underlying portal hypertension and cirrhosis, but acute pancreatitis not entirely excluded. Re commend clinical/laboratory correlation. 3. Other chronic findings as above. Reported By:
[2017-03-17] MEDS ORDERED: XANAX PO PRN (15:44)
[2017-03-17] MEDS ORDERED: NYSTATIN CREAM TOP PRN (15:44)
[2017-03-17] MEDS ORDERED: NORCO 10/325 TAB PO PRN (15:44)
[2017-03-17] MEDS: DEXTROSE 10% 1,000 ML IV SCH ×2 (16:01)
[2017-03-17] MEDS: DUONEB 0.5 MG/3 MG IN SCH ×2 (16:45→22:27)
[2017-03-17] MEDS: XANAX PO PRN (18:44)
[2017-03-17] MEDS ORDERED: HumuLIN R SUBCUT PRN (19:18)
[2017-03-17] MEDS: SNACK - Diabetic Appropriate PO SCH (20:04)
[2017-03-17] MEDS: LOPRESSOR TAB 25 MG PO SCH (20:28)
[2017-03-17] MEDS: CYMBALTA PO SCH (20:28)
[2017-03-17] MEDS ORDERED: LASIX PO SCH (21:00)
[2017-03-17] MEDS ORDERED: CYMBALTA PO SCH (21:00)
[2017-03-17] MEDS: NS 1000 ML 1,000 ML IV SCH (21:03)
[2017-03-18] MEDS: DUONEB 0.5 MG/3 MG IN SCH ×4 (00:58→17:27)
[2017-03-18] MEDS: NORCO 10/325 TAB PO PRN ×3 (04:30→20:34)
[2017-03-18] MEDS: LASIX PO SCH ×2 (06:13→17:30)
[2017-03-18 06:19] LABS: BASOPHILS % (AUTO) 0.1 % (0.2-1.0); HEMATOCRIT 20.6 % (36.0-47.0); LYMPHOCYTES # (AUTO) 1.9 X10^3/uL (1.3-2.9); LYMPHOCYTES % (AUTO) 15.4 % (21.0-51.0); MEAN CORPUSCULAR HEMOGLOBIN 32.2 pg (27.0-34.0); MEAN CORPUSCULAR HGB CONC 33.5 g/dL (33.0-35.0); MEAN CORPUSCULAR VOLUME 96.2 fL (80.0-100.0); MEAN PLATELET VOLUME 8.2 fL (7.4-11.0); MONOCYTES # (AUTO) 0.9 x10^3/uL (0.3-0.8); MONOCYTES % (AUTO) 7.6 % (0.0-13.0); NEUTROPHILS # (AUTO) 9.4 x10^3/uL (2.2-4.8); NEUTROPHILS % (AUTO) 76.9 % (42.0-75.0); PLATELET COUNT 161 X10^3/uL (150.0-450.0); RED BLOOD COUNT 2.14 X10^6/uL (3.5-5.4); RED CELL DISTRIBUTION WIDTH 19.2 % (11.6-16.5); WHITE BLOOD COUNT 12.2 X10^3/uL (3.6-10.0)
[2017-03-18 06:22] LABS: ALBUMIN 1.7 g/dL (3.4-5.0); CALCIUM 7.3 mg/dL (8.5-10.1); CARBON DIOXIDE 27.5 mmol/L (21-32); COR CA(FOR HYPOALB) 9.1 mg/dL (8.5-10.1); CREATININE 1.71 mg/dL (0.55-1.02); TOTAL PROTEIN 5.6 g/dL (6.4-8.2)
[2017-03-18 06:24] LABS: HEMOGLOBIN 6.9 g/dL (12.0-16.0)
[2017-03-18] MEDS ORDERED: OMEPRAZOLE MAGNESIUM PO SCH (09:00)
[2017-03-18] MEDS: PriLOSEC PO SCH (09:19)
[2017-03-18] MEDS: LOPRESSOR TAB 25 MG PO SCH ×2 (09:19→20:34)
[2017-03-18] MEDS: SOLU-Medrol 125 MG VIAL IVP SCH (09:19)
[2017-03-18] MEDS: INVANZ INJ 1 GM VIAL 1 GM in NS 50 ML IV + SPIKE MINIBAG* 50 ML IV SCH (09:23)
--- NOTE | 2017-03-18 13:43 | RAD ---
Examination: Portable AP chest History: None Comparison reference 02/03/2017 Findings: Continued upper normal heart size with dilated aorta. The lungs are clear although hypoinfl ated. There is no localized pulmonary consolidation, pneumothorax or large pleural effusion. Impression: Portable expiratory chest examination. No acute process demonstrated. Reported By:
[2017-03-18 16:21] LABS: HEMATOCRIT 20.8 % (36.0-47.0)
[2017-03-18 16:42] LABS: IRON 57 ug/dL (50-175); TOTAL IRON BINDING CAPACITY 221 ug/dL (250-450)
[2017-03-18] MEDS: CYMBALTA PO SCH (20:34)
[2017-03-18] MEDS: XANAX PO PRN (20:37)
[2017-03-18] MEDS: TESSALON PERLES PO PRN (20:40)
[2017-03-18] MEDS: SNACK - Diabetic Appropriate PO SCH (20:47)
[2017-03-18] MEDS: NS 1000 ML 1,000 ML IV SCH (21:09)
[2017-03-19] MEDS: DUONEB 0.5 MG/3 MG IN SCH ×4 (00:51→17:20)
[2017-03-19] MEDS: NORCO 10/325 TAB PO PRN ×2 (05:37→20:26)
[2017-03-19 05:44] LABS: CARBON DIOXIDE 31.2 mmol/L (21-32); CREATININE 1.81 mg/dL (0.55-1.02)
[2017-03-19 06:02] LABS: ALBUMIN 1.9 g/dL (3.4-5.0); COR CA(FOR HYPOALB) 9.7 mg/dL (8.5-10.1); TOTAL PROTEIN 5.7 g/dL (6.4-8.2)
[2017-03-19 06:14] LABS: BASOPHILS % (AUTO) 0 % (0.2-1.0); LYMPHOCYTES # (AUTO) 1.6 X10^3/uL (1.3-2.9); LYMPHOCYTES % (AUTO) 15.6 % (21.0-51.0); MEAN CORPUSCULAR HGB CONC 34.8 g/dL (33.0-35.0); MEAN CORPUSCULAR VOLUME 94.7 fL (80.0-100.0); MEAN PLATELET VOLUME 7.8 fL (7.4-11.0); MONOCYTES # (AUTO) 0.8 x10^3/uL (0.3-0.8); MONOCYTES % (AUTO) 8.5 % (0.0-13.0); NEUTROPHILS # (AUTO) 7.6 x10^3/uL (2.2-4.8); NEUTROPHILS % (AUTO) 75.9 % (42.0-75.0); PLATELET COUNT 159 X10^3/uL (150.0-450.0); RED BLOOD COUNT 2.09 X10^6/uL (3.5-5.4); RED CELL DISTRIBUTION WIDTH 18.6 % (11.6-16.5)
[2017-03-19 06:28] LABS: HEMATOCRIT 19.8 % (36.0-47.0); HEMOGLOBIN 6.9 g/dL (12.0-16.0)
[2017-03-19] MEDS: LASIX PO SCH ×2 (06:49→18:39)
[2017-03-19] MEDS: PriLOSEC PO SCH (07:30)
[2017-03-19] MEDS: LOPRESSOR TAB 25 MG PO SCH ×2 (08:43→20:23)
[2017-03-19] MEDS: SOLU-Medrol 125 MG VIAL IVP SCH (08:43)
[2017-03-19] MEDS: INVANZ INJ 1 GM VIAL 1 GM in NS 50 ML IV + SPIKE MINIBAG* 50 ML IV SCH (09:00)
[2017-03-19] MEDS ORDERED: NS 500 ML IV 500 ML IV ONE (12:07)
[2017-03-19] MEDS: SNACK - Diabetic Appropriate PO SCH (20:12)
[2017-03-19] MEDS: CYMBALTA PO SCH (20:23)
[2017-03-19] MEDS: TESSALON PERLES PO PRN (20:26)
[2017-03-19] MEDS: XANAX PO PRN (20:26)
[2017-03-19] MEDS: NS 1000 ML 1,000 ML IV SCH (20:33)
[2017-03-20] MEDS: DUONEB 0.5 MG/3 MG IN SCH ×4 (00:27→17:08)
[2017-03-20 05:58] LABS: ALBUMIN 1.9 g/dL (3.4-5.0); CALCIUM 7.4 mg/dL (8.5-10.1); CARBON DIOXIDE 29.1 mmol/L (21-32); COR CA(FOR HYPOALB) 9.1 mg/dL (8.5-10.1); CREATININE 1.69 mg/dL (0.55-1.02); TOTAL PROTEIN 5.5 g/dL (6.4-8.2)
[2017-03-20] MEDS: LASIX PO SCH (06:16)
[2017-03-20] MEDS: NORCO 10/325 TAB PO PRN ×2 (06:16→20:27)
[2017-03-20 06:24] LABS: BASOPHILS % (AUTO) 0.1 % (0.2-1.0); HEMATOCRIT 23.2 % (36.0-47.0); HEMOGLOBIN 8.2 g/dL (12.0-16.0); LYMPHOCYTES # (AUTO) 1.5 X10^3/uL (1.3-2.9); LYMPHOCYTES % (AUTO) 14.1 % (21.0-51.0); MEAN CORPUSCULAR HEMOGLOBIN 32.1 pg (27.0-34.0); MEAN CORPUSCULAR HGB CONC 35.1 g/dL (33.0-35.0); MEAN CORPUSCULAR VOLUME 91.4 fL (80.0-100.0); MEAN PLATELET VOLUME 7.8 fL (7.4-11.0); MONOCYTES # (AUTO) 0.8 x10^3/uL (0.3-0.8); MONOCYTES % (AUTO) 7.3 % (0.0-13.0); NEUTROPHILS # (AUTO) 8.3 x10^3/uL (2.2-4.8); NEUTROPHILS % (AUTO) 78.5 % (42.0-75.0); PLATELET COUNT 162 X10^3/uL (150.0-450.0); RED BLOOD COUNT 2.54 X10^6/uL (3.5-5.4); RED CELL DISTRIBUTION WIDTH 18.9 % (11.6-16.5); WHITE BLOOD COUNT 10.6 X10^3/uL (3.6-10.0)
--- NOTE | 2017-03-20 06:52 | RAD ---
HISTORY: Altered mental status Study: Chest AP portable Comparison: 03/18/2017 Findings: The heart is enlarged. No congestive heart failure is noted. The aorta is ectatic. The lungs are hypo inflated but free of acute infiltrates. No pleural effusions are identified. The bony thorax is unre markable. IMPRESSION: Cardiomegaly without congestive heart failure Lungs hypo inflated but clear Reported By:
[2017-03-20] MEDS: PriLOSEC PO SCH (08:00)
[2017-03-20] MEDS: LOPRESSOR TAB 25 MG PO SCH ×2 (08:15→20:27)
[2017-03-20] MEDS: INVANZ INJ 1 GM VIAL 1 GM in NS 50 ML IV 50 ML IV SCH (09:00)
[2017-03-20] MEDS: SNACK - Diabetic Appropriate PO SCH (20:20)
[2017-03-20] MEDS: CYMBALTA PO SCH (20:27)
[2017-03-20] MEDS: XANAX PO PRN (20:27)
[2017-03-20] MEDS: TESSALON PERLES PO PRN (20:27)
[2017-03-20] MEDS: NS 1000 ML 1,000 ML IV SCH (20:34)
[2017-03-21] MEDS: DUONEB 0.5 MG/3 MG IN SCH ×4 (01:04→17:04)
[2017-03-21] MEDS: NORCO 10/325 TAB PO PRN (06:03)
[2017-03-21] MEDS: LASIX PO SCH ×3 (06:03→17:52)
[2017-03-21 06:53] LABS: BASOPHILS # (AUTO) 0.1 X10^3/uL (0.0-0.1); BASOPHILS % (AUTO) 0.8 % (0.2-1.0); EOSINOPHILS # (AUTO) 0.1 x10^3/uL (0.0-0.2); EOSINOPHILS % (AUTO) 0.5 % (0.9-2.9); HEMATOCRIT 24.9 % (36.0-47.0); HEMOGLOBIN 8.3 g/dL (12.0-16.0); LYMPHOCYTES # (AUTO) 3.3 X10^3/uL (1.3-2.9); LYMPHOCYTES % (AUTO) 19.8 % (21.0-51.0); MEAN CORPUSCULAR HGB CONC 33.4 g/dL (33.0-35.0); MEAN PLATELET VOLUME 7.9 fL (7.4-11.0); MONOCYTES # (AUTO) 1.8 x10^3/uL (0.3-0.8); MONOCYTES % (AUTO) 10.8 % (0.0-13.0); NEUTROPHILS # (AUTO) 11.3 x10^3/uL (2.2-4.8); NEUTROPHILS % (AUTO) 68.1 % (42.0-75.0); PLATELET COUNT 167 X10^3/uL (150.0-450.0); RED BLOOD COUNT 2.68 X10^6/uL (3.5-5.4); RED CELL DISTRIBUTION WIDTH 18.7 % (11.6-16.5); WHITE BLOOD COUNT 16.5 X10^3/uL (3.6-10.0)
[2017-03-21 07:05] LABS: ALANINE AMINOTRANSFERASE 66 Units/L (12-78); ALKALINE PHOSPHATASE 155 Units/L (46-116); ASPARTATE AMINO TRANSFERASE 92 Units/L (15-37); BLOOD UREA NITROGEN 49 mg/dL (7-18); CALCIUM 7.5 mg/dL (8.5-10.1); CHLORIDE 100 mmol/L (98-107); COR CA(FOR HYPOALB) 9.1 mg/dL (8.5-10.1); CREATININE 1.67 mg/dL (0.55-1.02); SODIUM 138 mmol/L (136-145); TOTAL PROTEIN 5.6 g/dL (6.4-8.2); eGFR BLACK RACES 38 (>60); eGFR NON BLACK RACES 31 (>60)
[2017-03-21 07:26] LABS: PLATELET MORPHOLOGY COMMENT NORMAL (NORMAL)
[2017-03-21] MEDS: PriLOSEC PO SCH (09:15)
[2017-03-21] MEDS: LOPRESSOR TAB 25 MG PO SCH ×2 (09:15→20:38)
[2017-03-21] MEDS: INVANZ INJ 1 GM VIAL 1 GM in NS 50 ML IV 50 ML IV SCH (09:15)
[2017-03-21] MEDS: COLACE CAP 100 MG PO SCH ×2 (09:54→20:38)
[2017-03-21] MEDS: MILK OF MAGNESIA PO SCH ×2 (09:54→20:39)
[2017-03-21] MEDS ORDERED: DULCOLAX SUPPOSITORY 10 MG RECTAL ONE (10:22)
[2017-03-21] MEDS: NS 1000 ML 1,000 ML IV SCH (20:39)
[2017-03-21] MEDS: SNACK - Diabetic Appropriate PO SCH (20:39)
[2017-03-21] MEDS: CYMBALTA PO SCH (20:39)
[2017-03-22] MEDS: DUONEB 0.5 MG/3 MG IN SCH ×3 (00:50→12:56)
[2017-03-22] MEDS: NORCO 10/325 TAB PO PRN (04:10)
[2017-03-22] MEDS: LASIX PO SCH (06:24)
[2017-03-22 06:28] LABS: BASOPHILS # (AUTO) 0.1 X10^3/uL (0.0-0.1); BASOPHILS % (AUTO) 0.8 % (0.2-1.0); EOSINOPHILS # (AUTO) 0.3 x10^3/uL (0.0-0.2); HEMATOCRIT 22.6 % (36.0-47.0); HEMOGLOBIN 7.7 g/dL (12.0-16.0); LYMPHOCYTES # (AUTO) 2.4 X10^3/uL (1.3-2.9); LYMPHOCYTES % (AUTO) 17.8 % (21.0-51.0); MEAN CORPUSCULAR HEMOGLOBIN 31.7 pg (27.0-34.0); MEAN CORPUSCULAR HGB CONC 33.9 g/dL (33.0-35.0); MEAN CORPUSCULAR VOLUME 93.6 fL (80.0-100.0); MEAN PLATELET VOLUME 7.5 fL (7.4-11.0); MONOCYTES # (AUTO) 1.2 x10^3/uL (0.3-0.8); MONOCYTES % (AUTO) 8.9 % (0.0-13.0); NEUTROPHILS # (AUTO) 9.4 x10^3/uL (2.2-4.8); NEUTROPHILS % (AUTO) 70.5 % (42.0-75.0); PLATELET COUNT 125 X10^3/uL (150.0-450.0); RED BLOOD COUNT 2.42 X10^6/uL (3.5-5.4); RED CELL DISTRIBUTION WIDTH 18.4 % (11.6-16.5); WHITE BLOOD COUNT 13.3 X10^3/uL (3.6-10.0)
[2017-03-22 06:39] LABS: ALANINE AMINOTRANSFERASE 58 Units/L (12-78); ALBUMIN 1.8 g/dL (3.4-5.0); ALKALINE PHOSPHATASE 130 Units/L (46-116); ASPARTATE AMINO TRANSFERASE 69 Units/L (15-37); BLOOD UREA NITROGEN 46 mg/dL (7-18); CALCIUM 7.5 mg/dL (8.5-10.1); CARBON DIOXIDE 32.5 mmol/L (21-32); CHLORIDE 103 mmol/L (98-107); COR CA(FOR HYPOALB) 9.3 mg/dL (8.5-10.1); SODIUM 140 mmol/L (136-145); eGFR BLACK RACES 47 (>60); eGFR NON BLACK RACES 39 (>60)
[2017-03-22] MEDS ORDERED: POTASSIUM CHL 60 MEQ/NS 0.45% 500 ML IV PRN (06:56)
[2017-03-22] MEDS ORDERED: MAG-OX TAB PO PRN (06:56)
[2017-03-22] MEDS ORDERED: K-LYTE EFFERVESCENT PO PRN (06:56)
[2017-03-22] MEDS ORDERED: POTASSIUM CHL 40 MEQ/NS 0.45% 500 ML IV PRN (06:56)
[2017-03-22] MEDS ORDERED: POTASSIUM CHLORIDE LIQ 20 MEQ UDC PO PRN (06:56)
[2017-03-22] MEDS ORDERED: K-RIDER 10 MEQ/NS 100 ML 10 MEQ/100 ML BAG IV PRN (06:56)
[2017-03-22] MEDS ORDERED: MAGNESIUM SULFATE 1 GM/100 mL PREMIX 1 GM/100 ML BAG IV PRN (06:56)
[2017-03-22 07:17] LABS: HYPOCHROMASIA 1+; PLATELET MORPHOLOGY COMMENT NORMAL (NORMAL)
[2017-03-22] MEDS: LOPRESSOR TAB 25 MG PO SCH (08:51)
[2017-03-22] MEDS: PriLOSEC PO SCH (08:51)
[2017-03-22] MEDS: INVANZ INJ 1 GM VIAL 1 GM in NS 50 ML IV 50 ML IV SCH (09:00)
[2017-03-22 14:09] VITALS: BP 106/48
[2017-03-22] MEDS: TESSALON PERLES PO PRN (14:18)
== END 2017-03-22 14:50 | DRG 948 ==
LOC: OBSVTOIN 21:54 → MED/SURG 21:54 → ICU 03-15 10:45
PROVIDERS: ADMIT Internal Medicine; ATTEND Internal Medicine
PROC: 30233N1 Transfusion of Nonautologous Red Blood Cells into Peripheral Vein, Percutaneous Approach (ICD-10-PCS; principal; 2017-03-19)
DX: R41.82 Altered mental status, unspecified (principal); N39.0 Urinary tract infection, site not specified; I95.89 Other hypotension; E11.649 Type 2 diabetes mellitus with hypoglycemia without coma; R78.81 Bacteremia; T68.XXXA Hypothermia, initial encounter; E86.0 Dehydration; B96.29 Other Escherichia coli [E. coli] as the cause of diseases classified elsewhere; M62.81 Muscle weakness (generalized); X58.XXXA Exposure to other specified factors, initial encounter
CPT/HCPCS: 36415; 36430; 36600; 70450; 71010; 74176; 80053; 81001; 82728; 82803; 82947; 83540; 83550; 83605; 83735; 84439; 84443; 85014; 85018; 85025; 86850; 86900; 86901; 86922; 87040; 87086; 87088; 87186; 93005; 93010; 94640; 94760; A4222; P9016; J0696; J1335; J1815; J2930; J3260; J3490; J7620

== ENCOUNTER 2017-03-31 11:11 | Inpatient (IN) | payer OTHER, MEDICAID ==
[2017-03-31 14:36] LABS: BASOPHILS % (AUTO) 0.6 % (0.2-1.0); EOSINOPHILS # (AUTO) 0.2 x10^3/uL (0.0-0.2); HEMATOCRIT 23.5 % (36.0-47.0); LYMPHOCYTES # (AUTO) 1.8 X10^3/uL (1.3-2.9); MEAN CORPUSCULAR HEMOGLOBIN 32.1 pg (27.0-34.0); MEAN CORPUSCULAR HGB CONC 34.2 g/dL (33.0-35.0); MEAN CORPUSCULAR VOLUME 94.1 fL (80.0-100.0); MEAN PLATELET VOLUME 8.4 fL (7.4-11.0); MONOCYTES # (AUTO) 0.8 x10^3/uL (0.3-0.8); MONOCYTES % (AUTO) 10.6 % (0.0-13.0); NEUTROPHILS # (AUTO) 4.4 x10^3/uL (2.2-4.8); NEUTROPHILS % (AUTO) 60.8 % (42.0-75.0); PLATELET COUNT 143 X10^3/uL (150.0-450.0); RED CELL DISTRIBUTION WIDTH 17.9 % (11.6-16.5); WHITE BLOOD COUNT 7.3 X10^3/uL (3.6-10.0)
[2017-03-31 14:50] LABS: ALANINE AMINOTRANSFERASE 24 Units/L (12-78); ALBUMIN 1.8 g/dL (3.4-5.0); ALKALINE PHOSPHATASE 175 Units/L (46-116); ASPARTATE AMINO TRANSFERASE 25 Units/L (15-37); BLOOD UREA NITROGEN 29 mg/dL (7-18); CALCIUM 7.9 mg/dL (8.5-10.1); CARBON DIOXIDE 35.4 mmol/L (21-32); CHLORIDE 108 mmol/L (98-107); COR CA(FOR HYPOALB) 9.7 mg/dL (8.5-10.1); CREATININE 1.99 mg/dL (0.55-1.02); SODIUM 145 mmol/L (136-145); TOTAL PROTEIN 5.6 g/dL (6.4-8.2); eGFR BLACK RACES 31 (>60); eGFR NON BLACK RACES 26 (>60)
[2017-03-31 15:15] LABS: BILIRUBIN,URINE NEGATIVE (NEGATIVE); BLOOD/HEMOGLOBIN,URINE NEGATIVE (NEGATIVE); GLUCOSE, URINE NEGATIVE (NEGATIVE); KETONES,URINE NEGATIVE (NEGATIVE); LEUKOCYTE ESTERASE ,URINE NEGATIVE (NEGATIVE); NITRITES,URINE NEGATIVE (NEGATIVE); PROTEIN,URINE NEGATIVE (NEGATIVE); UROBILINOGEN,URINE NORMAL (NORMAL)
[2017-03-31 15:39] LABS: APPEARANCE,URINE CLEAR (CLEAR); COLOR,URINE YELLOW (YELLOW)
[2017-03-31 15:49] LABS: BACTERIA,URINE NEGATIVE /HPF (NEGATIVE); RBC,URINE NONE SEEN /HPF (NEGATIVE); SQUAMOUS EPITHELIAL CELL,UR FEW /HPF (NEGATIVE)
[2017-03-31 15:50] LABS: AMORPHOUS SEDIMENT,UR TRACE /HPF (NEGATIVE)
[2017-03-31] MEDS: INVANZ INJ 1 GM VIAL 1 GM in NS 50 ML IV + SPIKE MINIBAG* 50 ML IV SCH (16:00)
[2017-03-31] MEDS: NS 1000 ML 1,000 ML IV SCH (16:24)
[2017-03-31] MEDS ORDERED: NS 50 ML IV 50 ML IV ONE (16:27)
[2017-03-31] MEDS ORDERED: INVANZ INJ 1 GM VIAL ONE (16:35)
--- NOTE | 2017-03-31 16:40 | RAD ---
HISTORY: Altered mental status Study: Single-view chest Comparison: 03/20/2017 Findings: The trachea is midline. The cardiac silhouette is enlarged but stable. The lungs are clear without focal infiltrate or effusion. The bony thorax is unremarkable. IMPRESSION: 1. No acute cardiopulmonary disease. Reported By:
[2017-04-01] MEDS: NS 1000 ML 1,000 ML IV SCH (04:33)
[2017-04-01 04:39] LABS: BASOPHILS # (AUTO) 0.1 X10^3/uL (0.0-0.1); BASOPHILS % (AUTO) 1.2 % (0.2-1.0); EOSINOPHILS # (AUTO) 0.2 x10^3/uL (0.0-0.2); EOSINOPHILS % (AUTO) 2.6 % (0.9-2.9); HEMATOCRIT 24.2 % (36.0-47.0); HEMOGLOBIN 8.1 g/dL (12.0-16.0); LYMPHOCYTES # (AUTO) 1.7 X10^3/uL (1.3-2.9); LYMPHOCYTES % (AUTO) 23.5 % (21.0-51.0); MEAN CORPUSCULAR HGB CONC 33.3 g/dL (33.0-35.0); MEAN CORPUSCULAR VOLUME 96.4 fL (80.0-100.0); MEAN PLATELET VOLUME 9.5 fL (7.4-11.0); MONOCYTES # (AUTO) 0.5 x10^3/uL (0.3-0.8); MONOCYTES % (AUTO) 7.2 % (0.0-13.0); NEUTROPHILS # (AUTO) 4.7 x10^3/uL (2.2-4.8); NEUTROPHILS % (AUTO) 65.5 % (42.0-75.0); PLATELET COUNT 131 X10^3/uL (150.0-450.0); RED BLOOD COUNT 2.51 X10^6/uL (3.5-5.4); RED CELL DISTRIBUTION WIDTH 17.8 % (11.6-16.5)
[2017-04-01 05:02] LABS: ALANINE AMINOTRANSFERASE 23 Units/L (12-78); ALBUMIN 1.7 g/dL (3.4-5.0); ALKALINE PHOSPHATASE 163 Units/L (46-116); ASPARTATE AMINO TRANSFERASE 29 Units/L (15-37); BLOOD UREA NITROGEN 28 mg/dL (7-18); CALCIUM 7.8 mg/dL (8.5-10.1); CARBON DIOXIDE 34.2 mmol/L (21-32); CHLORIDE 108 mmol/L (98-107); COR CA(FOR HYPOALB) 9.6 mg/dL (8.5-10.1); CREATININE 1.81 mg/dL (0.55-1.02); SODIUM 146 mmol/L (136-145); TOTAL PROTEIN 5.4 g/dL (6.4-8.2); eGFR BLACK RACES 35 (>60); eGFR NON BLACK RACES 29 (>60)
[2017-04-01 05:08] LABS: WHITE BLOOD COUNT 7.7 X10^3/uL (3.6-10.0)
[2017-04-01 05:10] LABS: PLATELET MORPHOLOGY COMMENT NORMAL (NORMAL)
[2017-04-01 05:11] LABS: ANISOCYTOSIS SLIGHT; HYPOCHROMASIA SLIGHT
[2017-04-01] MEDS: INVANZ INJ 1 GM VIAL 1 GM in NS 50 ML IV + SPIKE MINIBAG* 50 ML IV SCH (09:27)
[2017-04-01] MEDS ORDERED: TESSALON PERLES PO PRN (10:05)
[2017-04-01] MEDS ORDERED: NYSTATIN CREAM TOP PRN (10:05)
[2017-04-01] MEDS ORDERED: OMEPRAZOLE MAGNESIUM PO SCH (10:15)
[2017-04-01] MEDS: DUONEB 0.5 MG/3 MG IN SCH ×2 (11:16→18:00)
[2017-04-01] MEDS ORDERED: DOXEPIN HCL 50 MG PO SCH (21:00)
[2017-04-01] MEDS: NORCO 10/325 TAB PO PRN (21:25)
[2017-04-01] MEDS: CYMBALTA PO SCH (21:26)
[2017-04-01] MEDS: SINEquan PO SCH (21:26)
[2017-04-01] MEDS: NEURONTIN CAP 300 MG PO SCH (21:26)
--- NOTE | 2017-04-01 23:49 | PCM.PROG ---
Progress Note - Progress Note for Day of Date: 04/01/17 - Subjective Subjective: WAS ADMITTED FOR ALTERED MENTAL STATUS. TODAY, SHE IS LYING IN BED WITH EYES CLOSED. SHE AWAKENS TO VERBAL STIMULI. PATIENT DOES NOT RESPOND TO QUESTIONS ASKED. ON EXAMINATION, HEART IS NORMAL IN RATE AND RHYTHM. LUNG SOUNDS ARE DIMINISHED THROUGHOUT. ABDOMEN IS ROUND, SOFT, AND NOTED WITH SUPRAPUBIC TENDERNESS ON PALPATION. GOOD MOVEMENT NOTED TO ALL EXTREMITIES. VITALS SIGNS ARE 98.7-73-20-98%-176/82. SHE IS HEMODYNAMICALLY STABLE THIS MORNING. A URINE CULTURE AND BLOOD CULTURES ARE PENDING. SHE WAS STARTED ON INVANZ 1 GM IV DAILY BY FOR A URINARY TRACT INFECTION. TODAY, WE WILL CONTINUE WITH CURRENT PLAN OF CARE. WE PLAN TO FOLLOW UP WITH AM LABS AND CONTINUE TO MONITOR PATIENT. - Past Medical Family Social History Past Med/Fam/Surg Hx: No changes since H&P Allergies: Allergies aspirin Allergy (Verified 01/30/17 15:42) diphenhydramine [From Benadryl] Allergy (Verified 01/30/17 15:43) lisinopril Allergy (Verified 01/30/17 15:43) zolpidem [From Ambien] Allergy (Verified 01/30/17 15:42) - Review of Systems ROS: No change since H&P - Vital Signs and I&O's Vital Signs: Temperature 98.3 F Pulse Rate [Right Brachial] 86 Pulse Rate [Left Brachial] 82 Pulse Rate 85 Respiratory Rate 18 Blood Pressure [Left Arm] 104/52 Blood Pressure [Right Arm] 130/59 Blood Pressure 106/48 O2 Sat by Pulse Oximetry 99 Intake and Output: Intake & Output 03/30/17 03/31/17 04/01/17 04/02/17 11:59 11:59 11:59 11:59 Intake Total 700 360 Output Total 250 Balance 450 360 - Physical Exam Oriented: Not Oriented. negative: Normal, Time, Person, Place, Unable to test, Other Eyes: Normal. negative: Blurred Vision, Diplopia, Discharge, Pain, Redness, Photophobia, Other Ear: Normal. negative: Right, Left, Swelling, Ecchymosis, Hemotypanum, Abrasion , Laceration Nose: Normal. negative: Injected, Discharge, Blood, Other Throat: Normal. negative: Tonsillar Hypertrophy, Red, Exudate, Dry, Other Respiratory: Normal. negative: Right, Left, Generalized, Superior, Inferior, Diminished, Wheezes, Rales, Rhonchi, OTHER Cardiovascular: Normal. negative: Tachycardia, Bradycardia, Irregular, S3, S4, Systolic, Diastolic, Murmur, Edema, Other : Normal. negative: Dysuria, Hematuria, Frequency, Discharge, Testicular Pain , Bleeding, , Other Auscultation: Bowel Sounds: Normal. negative: Bruit, Absent, Increased, Decreased, High Pitched, Other Palpation: Normal. negative: Spleen Enlarged, Liver Enlarged, Mass Pulsatile, Other Tenderness: Suprapubic, Mild Skin: Normal. negative: Decreased Turgur, Rash, Papular, Macular, Maculopapular , Vesicular, Pustular, Petechial, Red, Tender, Hot, Diaphoresis, Wound, Bruising , Ecchymosis, Other Musculoskeletal: Normal. negative: Right, Left, Shoulder, Clavicle, Arm, Elbow , Forearm, Wrist, Hand, Hip, Thigh, Knee, Leg, Ankle, Foot, Back:Thoracic, Back: Lumbar, Back:Midline, Back:Paraspinous, Pelvis, Swelling, Tender, Deformity, Pulse Deficit, Motor Deficit, Sensory Deficit, Instability, Crepitance Psychiatric: Normal. negative: Anxiety, Depression, Agitation, Other Mood Description: Calm Affect: Normal Speech Pattern: Delayed, Aphasic - Laboratory and Diagnostics Result Diagrams: 04/01/17 03:30 04/01/17 03:30 Labs: 03/31/17 14:54 Urine,Catheterized Urine Culture - Preliminary Laboratory WBC 7.7 X10^3/uL (3.6-10.0) 04/01/17 03:30 RBC 2.51 X10^6/uL (3.5-5.4) L 04/01/17 03:30 Hgb 8.1 g/dL (12.0-16.0) L 04/01/17 03:30 Hct 24.2 % (36.0-47.0) L 04/01/17 03:30 MCV 96.4 fL (80.0-100.0) 04/01/17 03:30 MCH 32.0 pg (27.0-34.0) 04/01/17 03:30 MCHC 33.3 g/dL (33.0-35.0) 04/01/17 03:30 RDW 17.8 % (11.6-16.5) H 04/01/17 03:30 Plt Count 131 X10^3/uL (150.0-450.0) L 04/01/17 03:30 Plt Count Comment Adequate (ADEQUATE) 04/01/17 03:30 MPV 9.5 fL (7.4-11.0) 04/01/17 03:30 Neut % 65.5 % (42.0-75.0) 04/01/17 03:30 Lymph % 23.5 % (21.0-51.0) 04/01/17 03:30 [place] % 7.2 % (0.0-13.0) 04/01/17 03:30 Eos % 2.6 % (0.9-2.9) 04/01/17 03:30 Baso % 1.2 % (0.2-1.0) H 04/01/17 03:30 Neut # 4.7 x10^3/uL (2.2-4.8) 04/01/17 03:30 Lymph # 1.7 X10^3/uL (1.3-2.9) 04/01/17 03:30 [place] # 0.5 x10^3/uL (0.3-0.8) 04/01/17 03:30 Eos # 0.2 x10^3/uL (0.0-0.2) 04/01/17 03:30 Baso # 0.1 X10^3/uL (0.0-0.1) 04/01/17 03:30 Absolute Nucleated RBC 0.0 /100WBC 04/01/17 03:30 Plt Morphology Comment Normal (NORMAL) 04/01/17 03:30 RBC Morphology Abnormal (NORMAL) A 04/01/17 03:30 Hypochromasia Slight A 04/01/17 03:30 Anisocytosis Slight A 04/01/17 03:30 Sodium 146 mmol/L (136-145) H 04/01/17 03:30 Corrected Sodium TNP 04/01/17 03:30 Potassium 4.4 mmol/L (3.5-5.1) 04/01/17 03:30 Chloride 108 mmol/L (98-107) H 04/01/17 03:30 Carbon Dioxide 34.2 mmol/L (21-32) H 04/01/17 03:30 BUN 28 mg/dL (7-18) H 04/01/17 03:30 Creatinine 1.81 mg/dL (0.55-1.02) H 04/01/17 03:30 Est GFR (MDRD) Af Amer 35 (>60) L 04/01/17 03:30 Est GFR (MDRD) Non-Af 29 (>60) L 04/01/17 03:30 Glucose 70 mg/dL (65-99) 04/01/17 03:30 Calcium 7.8 mg/dL (8.5-10.1) L 04/01/17 03:30 Corrected Calcium 9.6 mg/dL (8.5-10.1) 04/01/17 03:30 Total Bilirubin 0.40 mg/dL (0.2-1.0) 04/01/17 03:30 AST 29 Units/L (15-37) 04/01/17 03:30 ALT 23 Units/L (12-78) 04/01/17 03:30 Alkaline Phosphatase 163 Units/L (46-116) H 04/01/17 03:30 Total Protein 5.4 g/dL (6.4-8.2) L 04/01/17 03:30 Albumin 1.7 g/dL (3.4-5.0) L 04/01/17 03:30 Globulin 3.7 g/dL (2.5-4.5) 04/01/17 03:30 Albumin/Globulin Ratio 0.5 Ratio (1.1-2.1) L 04/01/17 03:30 Specimen Type Catherized urine 03/31/17 14:54 Urine Color Yellow (YELLOW) 03/31/17 14:54 Urine Appearance Clear (CLEAR) 03/31/17 14:54 Urine pH 5.0 (5.0 - 8.0) 03/31/17 14:54 Ur Specific [place] 1.015 (1.000-1.030) 03/31/17 14:54 Urine Protein Negative (NEGATIVE) 03/31/17 14:54 Urine Glucose (UA) Negative (NEGATIVE) 03/31/17 14:54 Urine Ketones Negative (NEGATIVE) 03/31/17 14:54 Urine Occult Blood Negative (NEGATIVE) 03/31/17 14:54 Urine Nitrite Negative (NEGATIVE) 03/31/17 14:54 Urine Bilirubin Negative (NEGATIVE) 03/31/17 14:54 Urine Urobilinogen Normal (NORMAL) 03/31/17 14:54 Ur Leukocyte Esterase Negative (NEGATIVE) 03/31/17 14:54 Urine RBC None seen /HPF (NEGATIVE) 03/31/17 14:54 Urine WBC Rare /HPF (NEGATIVE) 03/31/17 14:54 Ur Squamous Epith Cells Few /HPF (NEGATIVE) 03/31/17 14:54 Amorphous Sediment Trace /HPF (NEGATIVE) 03/31/17 14:54 Urine Bacteria Negative /HPF (NEGATIVE) 03/31/17 14:54 Ur Culture Indicated? No/not indicated 03/31/17 14:54 - Plan (1) Altered mental status Status: Acute Qualifiers: Altered mental status type: transient alteration of awareness Qualified Code(s): R40.4 - Transient alteration of awareness Plan: CONTINUE IV ABX FOR UTI, CONTINUE TO MONITOR
[2017-04-02] MEDS: NS 1000 ML 1,000 ML IV SCH ×4 (01:00→22:04)
[2017-04-02] MEDS: DUONEB 0.5 MG/3 MG IN SCH ×6 (01:08→22:30)
[2017-04-02 05:25] LABS: ALANINE AMINOTRANSFERASE 17 Units/L (12-78); ALBUMIN 1.6 g/dL (3.4-5.0); ALKALINE PHOSPHATASE 143 Units/L (46-116); ASPARTATE AMINO TRANSFERASE 22 Units/L (15-37); BLOOD UREA NITROGEN 26 mg/dL (7-18); CALCIUM 7.7 mg/dL (8.5-10.1); CARBON DIOXIDE 32.2 mmol/L (21-32); CHLORIDE 108 mmol/L (98-107); COR CA(FOR HYPOALB) 9.6 mg/dL (8.5-10.1); CREATININE 1.63 mg/dL (0.55-1.02); SODIUM 145 mmol/L (136-145); TOTAL PROTEIN 5.1 g/dL (6.4-8.2); eGFR BLACK RACES 39 (>60); eGFR NON BLACK RACES 32 (>60)
[2017-04-02 05:30] LABS: BASOPHILS # (AUTO) 0.1 X10^3/uL (0.0-0.1); BASOPHILS % (AUTO) 0.9 % (0.2-1.0); EOSINOPHILS # (AUTO) 0.1 x10^3/uL (0.0-0.2); EOSINOPHILS % (AUTO) 2.1 % (0.9-2.9); HEMATOCRIT 21.2 % (36.0-47.0); HEMOGLOBIN 7.1 g/dL (12.0-16.0); LYMPHOCYTES % (AUTO) 33.1 % (21.0-51.0); MEAN CORPUSCULAR HEMOGLOBIN 31.8 pg (27.0-34.0); MEAN CORPUSCULAR HGB CONC 33.3 g/dL (33.0-35.0); MEAN CORPUSCULAR VOLUME 95.4 fL (80.0-100.0); MONOCYTES # (AUTO) 0.5 x10^3/uL (0.3-0.8); MONOCYTES % (AUTO) 8.3 % (0.0-13.0); NEUTROPHILS # (AUTO) 3.3 x10^3/uL (2.2-4.8); NEUTROPHILS % (AUTO) 55.6 % (42.0-75.0); PLATELET COUNT 117 X10^3/uL (150.0-450.0); RED BLOOD COUNT 2.22 X10^6/uL (3.5-5.4); RED CELL DISTRIBUTION WIDTH 17.3 % (11.6-16.5); WHITE BLOOD COUNT 5.9 X10^3/uL (3.6-10.0)
--- NOTE | 2017-04-02 06:15 | RAD ---
Chest AP portable Indication: Dyspnea Findings: There is cardiomegaly. Spine hardware noted. Increased interstitial markings noted. Right e ffusion present. Impression: Cardiomegaly and pulmonary edema suggesting CHF. Reported By:
[2017-04-02 06:22] LABS: ANISOCYTOSIS 1+; HYPOCHROMASIA 1+; PLATELET MORPHOLOGY COMMENT NORMAL (NORMAL)
[2017-04-02] MEDS: INVANZ INJ 1 GM VIAL 1 GM in NS 50 ML IV + SPIKE MINIBAG* 50 ML IV SCH (10:18)
[2017-04-02] MEDS: LASIX IVP SCH ×2 (10:19→21:27)
[2017-04-02] MEDS: PriLOSEC PO SCH (10:20)
[2017-04-02 11:39] LABS: BILIRUBIN,URINE NEGATIVE (NEGATIVE); BLOOD/HEMOGLOBIN,URINE NEGATIVE (NEGATIVE); GLUCOSE, URINE NEGATIVE (NEGATIVE); KETONES,URINE NEGATIVE (NEGATIVE); LEUKOCYTE ESTERASE ,URINE NEGATIVE (NEGATIVE); NITRITES,URINE NEGATIVE (NEGATIVE); PROTEIN,URINE NEGATIVE (NEGATIVE); UROBILINOGEN,URINE NORMAL (NORMAL)
[2017-04-02 11:49] LABS: APPEARANCE,URINE CLEAR (CLEAR); BACTERIA,URINE NEGATIVE /HPF (NEGATIVE); COLOR,URINE YELLOW (YELLOW); RBC,URINE 0-1 /HPF (NEGATIVE); SQUAMOUS EPITHELIAL CELL,UR FEW /HPF (NEGATIVE)
[2017-04-02] MEDS ORDERED: PHARMACY CONSULT - DOSE _____ XX SCH (13:00)
--- NOTE | 2017-04-02 13:14 | PCM.PROG ---
Progress Note - Progress Note for Day of Date: 04/02/17 - Subjective Subjective: WAS ADMITTED FOR ALTERED MENTAL STATUS. TODAY, SHE IS LYING IN BED WITH EYES CLOSED. SHE AWAKENS TO VERBAL STIMULI. PATIENT DOES NOT RESPOND TO QUESTIONS ASKED. ON EXAMINATION, HEART IS NORMAL IN RATE AND RHYTHM. LUNG SOUNDS ARE DIMINISHED THROUGHOUT. ABDOMEN IS ROUND, SOFT, AND NOTED WITH SUPRAPUBIC TENDERNESS ON PALPATION. GOOD MOVEMENT NOTED TO ALL EXTREMITIES. A URINE CULTURE AND BLOOD CULTURES ARE PENDING. SHE WAS STARTED ON INVANZ 1 GM IV DAILY FOR A URINARY TRACT INFECTION. TODAY, WE WILL CONTINUE WITH CURRENT PLAN OF CARE. ADD LASIX IV, REPEAT AM CXR, SUPPLEMENTAL O2, BYERS FOR STRICT I & OS. WE PLAN TO FOLLOW UP WITH AM LABS AND CONTINUE TO MONITOR PATIENT. - Past Medical Family Social History Past Med/Fam/Surg Hx: No changes since H&P Allergies: Allergies aspirin Allergy (Verified 01/30/17 15:42) diphenhydramine [From Benadryl] Allergy (Verified 01/30/17 15:43) lisinopril Allergy (Verified 01/30/17 15:43) zolpidem [From Ambien] Allergy (Verified 01/30/17 15:42) - Review of Systems ROS: No change since H&P - Vital Signs and I&O's Vital Signs: Temperature 97.8 F Pulse Rate [Right Brachial] 91 Pulse Rate [Left Brachial] 82 Pulse Rate 81 Respiratory Rate 20 Blood Pressure [Left Arm] 108/55 Blood Pressure [Right Arm] 101/51 Blood Pressure 106/48 O2 Sat by Pulse Oximetry 100 Intake and Output: Intake & Output 03/31/17 04/01/17 04/02/17 04/03/17 11:59 11:59 11:59 11:59 Intake Total 700 720 Output Total 250 Balance 450 720 - Physical Exam Oriented: Not Oriented. negative: Normal, Time, Person, Place, Unable to test, Other Eyes: Normal. negative: Blurred Vision, Diplopia, Discharge, Pain, Redness, Photophobia, Other Ear: Normal. negative: Right, Left, Swelling, Ecchymosis, Hemotypanum, Abrasion , Laceration Nose: Normal. negative: Injected, Discharge, Blood, Other Throat: Normal. negative: Tonsillar Hypertrophy, Red, Exudate, Dry, Other Respiratory: Normal, Diminished Cardiovascular: Normal. negative: Tachycardia, Bradycardia, Irregular, S3, S4, Systolic, Diastolic, Murmur, Edema, Other : Normal. negative: Dysuria, Hematuria, Frequency, Discharge, Testicular Pain , Bleeding, , Other Auscultation: Bowel Sounds: Normal. negative: Bruit, Absent, Increased, Decreased, High Pitched, Other Tenderness: Suprapubic, Mild Skin: Normal, Decreased Turgur, Wound (LUE) Musculoskeletal: Normal, Back:Lumbar, Motor Deficit Psychiatric: Normal. negative: Anxiety, Depression, Agitation, Other Mood Description: Calm Affect: Normal Speech Pattern: Clear - Laboratory and Diagnostics Result Diagrams: 04/02/17 03:25 04/02/17 03:25 Labs: 03/31/17 14:54 Urine,Catheterized Urine Culture - Final Laboratory WBC 5.9 X10^3/uL (3.6-10.0) 04/02/17 03:25 RBC 2.22 X10^6/uL (3.5-5.4) L 04/02/17 03:25 Hgb 7.1 g/dL (12.0-16.0) L 04/02/17 03:25 Hct 21.2 % (36.0-47.0) L 04/02/17 03:25 MCV 95.4 fL (80.0-100.0) 04/02/17 03:25 MCH 31.8 pg (27.0-34.0) 04/02/17 03:25 MCHC 33.3 g/dL (33.0-35.0) 04/02/17 03:25 RDW 17.3 % (11.6-16.5) H 04/02/17 03:25 Plt Count 117 X10^3/uL (150.0-450.0) L 04/02/17 03:25 Plt Count Comment Decreased (ADEQUATE) A 04/02/17 03:25 MPV 9.0 fL (7.4-11.0) 04/02/17 03:25 Neut % 55.6 % (42.0-75.0) 04/02/17 03:25 Lymph % 33.1 % (21.0-51.0) 04/02/17 03:25 [place] % 8.3 % (0.0-13.0) 04/02/17 03:25 Eos % 2.1 % (0.9-2.9) 04/02/17 03:25 Baso % 0.9 % (0.2-1.0) 04/02/17 03:25 Neut # 3.3 x10^3/uL (2.2-4.8) 04/02/17 03:25 Lymph # 2.0 X10^3/uL (1.3-2.9) 04/02/17 03:25 [place] # 0.5 x10^3/uL (0.3-0.8) 04/02/17 03:25 Eos # 0.1 x10^3/uL (0.0-0.2) 04/02/17 03:25 Baso # 0.1 X10^3/uL (0.0-0.1) 04/02/17 03:25 Absolute Nucleated RBC 0.1 /100WBC 04/02/17 03:25 Plt Morphology Comment Normal (NORMAL) 04/02/17 03:25 RBC Morphology Abnormal (NORMAL) A 04/02/17 03:25 Hypochromasia 1+ A 04/02/17 03:25 Anisocytosis 1+ A 04/02/17 03:25 Sodium 145 mmol/L (136-145) 04/02/17 03:25 Corrected Sodium TNP 04/02/17 03:25 Potassium 4.1 mmol/L (3.5-5.1) 04/02/17 03:25 Chloride 108 mmol/L (98-107) H 04/02/17 03:25 Carbon Dioxide 32.2 mmol/L (21-32) H 04/02/17 03:25 BUN 26 mg/dL (7-18) H 04/02/17 03:25 Creatinine 1.63 mg/dL (0.55-1.02) H 04/02/17 03:25 Est GFR (MDRD) Af Amer 39 (>60) L 04/02/17 03:25 Est GFR (MDRD) Non-Af 32 (>60) L 04/02/17 03:25 Glucose 73 mg/dL (65-99) 04/02/17 03:25 Calcium 7.7 mg/dL (8.5-10.1) L 04/02/17 03:25 Corrected Calcium 9.6 mg/dL (8.5-10.1) 04/02/17 03:25 Iron 45 ug/dL (50-175) L 04/02/17 03:25 Transferrin 135 mg/dL (202-364) L 04/02/17 03:25 Ferritin 115 ng/mL (8-252) 04/02/17 03:25 Total Bilirubin 0.50 mg/dL (0.2-1.0) 04/02/17 03:25 AST 22 Units/L (15-37) 04/02/17 03:25 ALT 17 Units/L (12-78) 04/02/17 03:25 Alkaline Phosphatase 143 Units/L (46-116) H 04/02/17 03:25 Total Protein 5.1 g/dL (6.4-8.2) L 04/02/17 03:25 Albumin 1.6 g/dL (3.4-5.0) L 04/02/17 03:25 Globulin 3.5 g/dL (2.5-4.5) 04/02/17 03:25 Albumin/Globulin Ratio 0.5 Ratio (1.1-2.1) L 04/02/17 03:25 Vitamin B12 724 pg/mL (193-986) 04/02/17 03:25 Folate 4.2 ng/mL (>8.6) L 04/02/17 03:25 Specimen Type Catherized urine 04/02/17 10:45 Urine Color Yellow (YELLOW) 04/02/17 10:45 Urine Appearance Clear (CLEAR) 04/02/17 10:45 Urine pH 7.0 (5.0 - 8.0) 04/02/17 10:45 Ur Specific [place] 1.010 (1.000-1.030) 04/02/17 10:45 Urine Protein Negative (NEGATIVE) 04/02/17 10:45 Urine Glucose (UA) Negative (NEGATIVE) 04/02/17 10:45 Urine Ketones Negative (NEGATIVE) 04/02/17 10:45 Urine Occult Blood Negative (NEGATIVE) 04/02/17 10:45 Urine Nitrite Negative (NEGATIVE) 04/02/17 10:45 Urine Bilirubin Negative (NEGATIVE) 04/02/17 10:45 Urine Urobilinogen Normal (NORMAL) 04/02/17 10:45 Ur Leukocyte Esterase Negative (NEGATIVE) 04/02/17 10:45 Urine RBC 0-1 /HPF (NEGATIVE) 04/02/17 10:45 Urine WBC 0-3 /HPF (NEGATIVE) 04/02/17 10:45 Ur Squamous Epith Cells Few /HPF (NEGATIVE) 04/02/17 10:45 Amorphous Sediment Trace /HPF (NEGATIVE) 03/31/17 14:54 Urine Bacteria Negative /HPF (NEGATIVE) 04/02/17 10:45 Ur Culture Indicated? No/not indicated 04/02/17 10:45 - Plan (1) UTI (urinary tract infection) Status: Acute Plan: CULTURES PENDING, CONTINUE IV ATBX. REPEAT AM LABS (2) CHF (congestive heart failure) Status: Acute Plan: IV LASIX, SUPPLEMENTAL O2, I & OS. ECHO (3) Altered mental status Status: Acute Qualifiers: Altered mental status type: transient alteration of awareness Qualified Code(s): R40.4 - Transient alteration of awareness Plan: CONTINUE IV ABX FOR UTI, CONTINUE TO MONITOR
[2017-04-02] MEDS ORDERED: DEXFERRUM or INFED 25 MG in NS 100 ML IV 100 ML IV ONE (14:00)
[2017-04-02] MEDS ORDERED: DEXFERRUM or INFED 1,000 MG in NS 500 ML IV 500 ML IV ONE (15:00)
[2017-04-02] MEDS: NEURONTIN CAP 300 MG PO SCH (21:25)
[2017-04-02] MEDS: CYMBALTA PO SCH (21:25)
[2017-04-02] MEDS: SINEquan PO SCH (21:25)
[2017-04-02] MEDS: LOPRESSOR TAB 25 MG PO SCH (21:27)
[2017-04-02] MEDS: NORCO 10/325 TAB PO PRN (21:29)
[2017-04-03] MEDS: DUONEB 0.5 MG/3 MG IN SCH ×4 (01:45→16:40)
[2017-04-03 04:42] LABS: BASOPHILS # (AUTO) 0.1 X10^3/uL (0.0-0.1); BASOPHILS % (AUTO) 1.1 % (0.2-1.0); EOSINOPHILS # (AUTO) 0.2 x10^3/uL (0.0-0.2); EOSINOPHILS % (AUTO) 3.7 % (0.9-2.9); HEMOGLOBIN 7.1 g/dL (12.0-16.0); LYMPHOCYTES # (AUTO) 1.8 X10^3/uL (1.3-2.9); LYMPHOCYTES % (AUTO) 31.9 % (21.0-51.0); MEAN CORPUSCULAR HEMOGLOBIN 32.3 pg (27.0-34.0); MEAN CORPUSCULAR HGB CONC 33.7 g/dL (33.0-35.0); MEAN CORPUSCULAR VOLUME 95.7 fL (80.0-100.0); MEAN PLATELET VOLUME 9.3 fL (7.4-11.0); MONOCYTES # (AUTO) 0.5 x10^3/uL (0.3-0.8); MONOCYTES % (AUTO) 8.6 % (0.0-13.0); NEUTROPHILS # (AUTO) 3.1 x10^3/uL (2.2-4.8); NEUTROPHILS % (AUTO) 54.7 % (42.0-75.0); PLATELET COUNT 110 X10^3/uL (150.0-450.0); RED BLOOD COUNT 2.19 X10^6/uL (3.5-5.4); RED CELL DISTRIBUTION WIDTH 17.6 % (11.6-16.5); WHITE BLOOD COUNT 5.7 X10^3/uL (3.6-10.0)
[2017-04-03 04:57] LABS: PLATELET MORPHOLOGY COMMENT NORMAL (NORMAL)
[2017-04-03 04:58] LABS: ANISOCYTOSIS SLIGHT; HYPOCHROMASIA SLIGHT
[2017-04-03 05:00] LABS: ALBUMIN 1.5 g/dL (3.4-5.0); ALKALINE PHOSPHATASE 140 Units/L (46-116); BLOOD UREA NITROGEN 21 mg/dL (7-18); CALCIUM 7.4 mg/dL (8.5-10.1); CARBON DIOXIDE 31.1 mmol/L (21-32); CHLORIDE 109 mmol/L (98-107); COR CA(FOR HYPOALB) 9.4 mg/dL (8.5-10.1); CREATININE 1.74 mg/dL (0.55-1.02); SODIUM 145 mmol/L (136-145); TOTAL PROTEIN 5.1 g/dL (6.4-8.2); eGFR BLACK RACES 36 (>60); eGFR NON BLACK RACES 30 (>60)
[2017-04-03 06:33] LABS: ALANINE AMINOTRANSFERASE 18 Units/L (12-78); ASPARTATE AMINO TRANSFERASE 34 Units/L (15-37)
--- NOTE | 2017-04-03 07:08 | RAD ---
Examination: Portable AP chest History: SOB Comparison reference 04/02/2017 Findings: Continued cardiomegaly and pulmonary vascular distention, both findings accentuated by port able expiratory technique. There is no evidence for localized consolidation or pneumothorax. Impression: Findings continued to suggest congestive failure. Associated pneumonia may be present. Reported By:
[2017-04-03 07:56] VITALS: BMI 34.9
[2017-04-03] MEDS: PriLOSEC PO SCH (09:58)
[2017-04-03] MEDS: INVANZ INJ 1 GM VIAL 1 GM in NS 50 ML IV + SPIKE MINIBAG* 50 ML IV SCH (09:58)
[2017-04-03] MEDS: LOPRESSOR TAB 25 MG PO SCH ×2 (09:58→20:32)
[2017-04-03] MEDS: LASIX IVP SCH ×2 (09:58→20:32)
[2017-04-03] MEDS: NS 1000 ML 1,000 ML IV SCH ×2 (10:26→23:32)
--- NOTE | 2017-04-03 13:02 | PCM.PROG ---
Progress Note - Progress Note for Day of Date: 04/03/17 - Subjective Subjective: patient is a 81-year-old white female who was admitted from the [facility] on 1211 with altered mental status related to UTI. Patient has a history of multidrug-resistant UTI. Patient is currently on IV antibiotics. Patient also has increased chest congestion which is improved from 1 day ago. Patient has been receiving IV Lasix for CHF exacerbation. Patient had an echocardiogram done the report in electronic medical record. We also consult respiratory for jet nebs and a sputum culture patient does state she feels improved we will continue medication regimen for UTI and repeat a.m. labs and a chest x-ray. - Past Medical Family Social History Past Med/Fam/Surg Hx: No changes since H&P Allergies: Allergies aspirin Allergy (Verified 01/30/17 15:42) diphenhydramine [From Benadryl] Allergy (Verified 01/30/17 15:43) lisinopril Allergy (Verified 01/30/17 15:43) zolpidem [From Ambien] Allergy (Verified 01/30/17 15:42) - Review of Systems ROS: No change since H&P - Vital Signs and I&O's Vital Signs: Temperature 97.8 F Pulse Rate [Right Brachial] 74 Pulse Rate [Left Brachial] 82 Pulse Rate 77 Respiratory Rate 18 Blood Pressure [Left Arm] 122/58 Blood Pressure [Right Arm] 101/51 Blood Pressure 106/48 O2 Sat by Pulse Oximetry 100 Intake and Output: Intake & Output 04/01/17 04/02/17 04/03/17 04/04/17 11:59 11:59 11:59 11:59 Intake Total 086 721 7915 Output Total 250 3200 Balance 450 720 -2020 - Physical Exam Oriented: Person, Not Oriented Eyes: Normal Ear: Normal Nose: Normal. negative: Injected, Discharge, Blood, Other Throat: Normal. negative: Tonsillar Hypertrophy, Red, Exudate, Dry, Other Respiratory: Normal, Diminished Cardiovascular: Normal : Normal Auscultation: Bowel Sounds: Normal Tenderness: Suprapubic, Mild Skin: Normal, Decreased Turgur, Wound (LUE) Musculoskeletal: Normal, Back:Lumbar, Motor Deficit Psychiatric: Normal. negative: Anxiety, Depression, Agitation, Other Mood Description: Calm Affect: Normal Speech Pattern: Clear - Laboratory and Diagnostics Result Diagrams: 04/03/17 03:25 04/03/17 03:25 Labs: 03/31/17 14:10 Blood Blood Culture - Preliminary 03/31/17 13:32 Blood Blood Culture - Preliminary 03/31/17 14:54 Urine,Catheterized Urine Culture - Final Laboratory WBC 5.7 X10^3/uL (3.6-10.0) 04/03/17 03:25 RBC 2.19 X10^6/uL (3.5-5.4) L 04/03/17 03:25 Hgb 7.1 g/dL (12.0-16.0) L 04/03/17 03:25 Hct 21.0 % (36.0-47.0) L 04/03/17 03:25 MCV 95.7 fL (80.0-100.0) 04/03/17 03:25 MCH 32.3 pg (27.0-34.0) 04/03/17 03:25 MCHC 33.7 g/dL (33.0-35.0) 04/03/17 03:25 RDW 17.6 % (11.6-16.5) H 04/03/17 03:25 Plt Count 110 X10^3/uL (150.0-450.0) L 04/03/17 03:25 Plt Count Comment Decreased (ADEQUATE) A 04/03/17 03:25 MPV 9.3 fL (7.4-11.0) 04/03/17 03:25 Neut % 54.7 % (42.0-75.0) 04/03/17 03:25 Lymph % 31.9 % (21.0-51.0) 04/03/17 03:25 [place] % 8.6 % (0.0-13.0) 04/03/17 03:25 Eos % 3.7 % (0.9-2.9) H 04/03/17 03:25 Baso % 1.1 % (0.2-1.0) H 04/03/17 03:25 Neut # 3.1 x10^3/uL (2.2-4.8) 04/03/17 03:25 Lymph # 1.8 X10^3/uL (1.3-2.9) 04/03/17 03:25 [place] # 0.5 x10^3/uL (0.3-0.8) 04/03/17 03:25 Eos # 0.2 x10^3/uL (0.0-0.2) 04/03/17 03:25 Baso # 0.1 X10^3/uL (0.0-0.1) 04/03/17 03:25 Absolute Nucleated RBC 0.1 /100WBC 04/03/17 03:25 Plt Morphology Comment Normal (NORMAL) 04/03/17 03:25 RBC Morphology Abnormal (NORMAL) A 04/03/17 03:25 Hypochromasia Slight A 04/03/17 03:25 Anisocytosis Slight A 04/03/17 03:25 Sodium 145 mmol/L (136-145) 04/03/17 03:25 Corrected Sodium TNP 04/03/17 03:25 Potassium 3.8 mmol/L (3.5-5.1) 04/03/17 03:25 Chloride 109 mmol/L (98-107) H 04/03/17 03:25 Carbon Dioxide 31.1 mmol/L (21-32) 04/03/17 03:25 BUN 21 mg/dL (7-18) H 04/03/17 03:25 Creatinine 1.74 mg/dL (0.55-1.02) H 04/03/17 03:25 Est GFR (MDRD) Af Amer 36 (>60) L 04/03/17 03:25 Est GFR (MDRD) Non-Af 30 (>60) L 04/03/17 03:25 Glucose 108 mg/dL (65-99) H 04/03/17 03:25 Calcium 7.4 mg/dL (8.5-10.1) L 04/03/17 03:25 Corrected Calcium 9.4 mg/dL (8.5-10.1) 04/03/17 03:25 Iron 45 ug/dL (50-175) L 04/02/17 03:25 Transferrin 135 mg/dL (202-364) L 04/02/17 03:25 Ferritin 115 ng/mL (8-252) 04/02/17 03:25 Total Bilirubin 0.20 mg/dL (0.2-1.0) 04/03/17 03:25 AST 34 Units/L (15-37) 04/03/17 03:25 ALT 18 Units/L (12-78) 04/03/17 03:25 Alkaline Phosphatase 140 Units/L (46-116) H 04/03/17 03:25 Total Protein 5.1 g/dL (6.4-8.2) L 04/03/17 03:25 Albumin 1.5 g/dL (3.4-5.0) L 04/03/17 03:25 Globulin 3.6 g/dL (2.5-4.5) 04/03/17 03:25 Albumin/Globulin Ratio 0.4 Ratio (1.1-2.1) L 04/03/17 03:25 Vitamin B12 724 pg/mL (193-986) 04/02/17 03:25 Folate 4.2 ng/mL (>8.6) L 04/02/17 03:25 Specimen Type Catherized urine 04/02/17 10:45 Urine Color Yellow (YELLOW) 04/02/17 10:45 Urine Appearance Clear (CLEAR) 04/02/17 10:45 Urine pH 7.0 (5.0 - 8.0) 04/02/17 10:45 Ur Specific [place] 1.010 (1.000-1.030) 04/02/17 10:45 Urine Protein Negative (NEGATIVE) 04/02/17 10:45 Urine Glucose (UA) Negative (NEGATIVE) 04/02/17 10:45 Urine Ketones Negative (NEGATIVE) 04/02/17 10:45 Urine Occult Blood Negative (NEGATIVE) 04/02/17 10:45 Urine Nitrite Negative (NEGATIVE) 04/02/17 10:45 Urine Bilirubin Negative (NEGATIVE) 04/02/17 10:45 Urine Urobilinogen Normal (NORMAL) 04/02/17 10:45 Ur Leukocyte Esterase Negative (NEGATIVE) 04/02/17 10:45 Urine RBC 0-1 /HPF (NEGATIVE) 04/02/17 10:45 Urine WBC 0-3 /HPF (NEGATIVE) 04/02/17 10:45 Ur Squamous Epith Cells Few /HPF (NEGATIVE) 04/02/17 10:45 Amorphous Sediment Trace /HPF (NEGATIVE) 03/31/17 14:54 Urine Bacteria Negative /HPF (NEGATIVE) 04/02/17 10:45 Ur Culture Indicated? No/not indicated 04/02/17 10:45 - Plan (1) UTI (urinary tract infection) Status: Acute Plan: CULTURES PENDING, CONTINUE IV ATBX. REPEAT AM LABS (2) CHF (congestive heart failure) Status: Acute Plan: IV LASIX, SUPPLEMENTAL O2, I & OS. ECHO WITH PULMONAR INSUFF. REPEAT AM LABS AND CXR (3) Altered mental status Status: Acute Qualifiers: Altered mental status type: transient alteration of awareness Qualified Code(s): R40.4 - Transient alteration of awareness Plan: CONTINUE IV ABX FOR UTI, CONTINUE TO MONITOR
[2017-04-03] MEDS: DULCOLAX SUPPOSITORY 10 MG RECTAL SCH (14:42)
[2017-04-03] MEDS: COLACE CAP 100 MG PO SCH (20:31)
[2017-04-03] MEDS: MILK OF MAGNESIA PO SCH (20:31)
[2017-04-03] MEDS: SINEquan PO SCH (20:31)
[2017-04-03] MEDS: CYMBALTA PO SCH (20:32)
[2017-04-03] MEDS: NEURONTIN CAP 300 MG PO SCH (20:32)
[2017-04-04] MEDS: DUONEB 0.5 MG/3 MG IN SCH ×7 (01:00→16:50)
[2017-04-04 04:52] LABS: ALBUMIN 1.5 g/dL (3.4-5.0); ALKALINE PHOSPHATASE 140 Units/L (46-116); BLOOD UREA NITROGEN 20 mg/dL (7-18); CALCIUM 7.7 mg/dL (8.5-10.1); CARBON DIOXIDE 32.5 mmol/L (21-32); CHLORIDE 111 mmol/L (98-107); COR CA(FOR HYPOALB) 9.7 mg/dL (8.5-10.1); CREATININE 1.68 mg/dL (0.55-1.02); SODIUM 147 mmol/L (136-145); TOTAL PROTEIN 5.1 g/dL (6.4-8.2); eGFR BLACK RACES 38 (>60); eGFR NON BLACK RACES 31 (>60)
[2017-04-04 04:54] LABS: BASOPHILS % (AUTO) 0.7 % (0.2-1.0); EOSINOPHILS # (AUTO) 0.2 x10^3/uL (0.0-0.2); EOSINOPHILS % (AUTO) 3.7 % (0.9-2.9); HEMATOCRIT 22.1 % (36.0-47.0); HEMOGLOBIN 7.3 g/dL (12.0-16.0); MEAN CORPUSCULAR HEMOGLOBIN 32.1 pg (27.0-34.0); MEAN CORPUSCULAR HGB CONC 33.3 g/dL (33.0-35.0); MEAN CORPUSCULAR VOLUME 96.5 fL (80.0-100.0); MEAN PLATELET VOLUME 8.9 fL (7.4-11.0); MONOCYTES # (AUTO) 0.5 x10^3/uL (0.3-0.8); MONOCYTES % (AUTO) 8.8 % (0.0-13.0); NEUTROPHILS % (AUTO) 51.8 % (42.0-75.0); PLATELET COUNT 114 X10^3/uL (150.0-450.0); RED BLOOD COUNT 2.29 X10^6/uL (3.5-5.4); RED CELL DISTRIBUTION WIDTH 17.2 % (11.6-16.5); WHITE BLOOD COUNT 5.8 X10^3/uL (3.6-10.0)
[2017-04-04 05:07] LABS: ALANINE AMINOTRANSFERASE 19 Units/L (12-78); ASPARTATE AMINO TRANSFERASE 25 Units/L (15-37)
[2017-04-04 05:27] LABS: ANISOCYTOSIS SLIGHT; HYPOCHROMASIA SLIGHT; PLATELET MORPHOLOGY COMMENT NORMAL (NORMAL)
--- NOTE | 2017-04-04 07:20 | RAD ---
Examination: Portable AP chest History: SOB Comparison reference 04/03/2017 Findings: Continued cardiomegaly with aortic ectasia, pulmonary vascular distention. Elevation right hemidiaphragm unchanged. Suggestion of streaky infiltrates or atelectasis in the bases. No obvious pn eumothorax. Impression: Persistent cardiomegaly and vascular congestion. Suspect mild basal atelectasis although pulmonary hypo inflation limits evaluation of the lower lobes. Reported By:
[2017-04-04] MEDS ORDERED: NS 50 ML IV 50 ML IV ONE (08:09)
[2017-04-04] MEDS ORDERED: INVANZ INJ 1 GM VIAL ONE (08:11)
[2017-04-04] MEDS: LOPRESSOR TAB 25 MG PO SCH ×2 (08:17→20:23)
[2017-04-04] MEDS: PriLOSEC PO SCH (08:28)
[2017-04-04] MEDS: LASIX IVP SCH ×2 (08:28→20:23)
[2017-04-04] MEDS: MILK OF MAGNESIA PO SCH ×2 (08:28→20:23)
[2017-04-04] MEDS: INVANZ INJ 1 GM VIAL 1 GM in NS 50 ML IV + SPIKE MINIBAG* 50 ML IV SCH (09:24)
[2017-04-04] MEDS: DULCOLAX SUPPOSITORY 10 MG RECTAL SCH (15:27)
[2017-04-04] MEDS: SINEquan PO SCH (20:22)
[2017-04-04] MEDS: NEURONTIN CAP 300 MG PO SCH (20:22)
[2017-04-04] MEDS: COLACE CAP 100 MG PO SCH (20:22)
[2017-04-04] MEDS: CYMBALTA PO SCH (21:26)
[2017-04-05] MEDS: DUONEB 0.5 MG/3 MG IN SCH ×2 (01:24→06:00)
[2017-04-05] MEDS: NS 1000 ML 1,000 ML IV SCH (03:19)
[2017-04-05 04:54] LABS: BASOPHILS % (AUTO) 0.6 % (0.2-1.0); EOSINOPHILS # (AUTO) 0.2 x10^3/uL (0.0-0.2); HEMATOCRIT 20.1 % (36.0-47.0); LYMPHOCYTES # (AUTO) 1.9 X10^3/uL (1.3-2.9); MEAN CORPUSCULAR HEMOGLOBIN 32.2 pg (27.0-34.0); MEAN CORPUSCULAR HGB CONC 33.8 g/dL (33.0-35.0); MEAN CORPUSCULAR VOLUME 95.2 fL (80.0-100.0); MEAN PLATELET VOLUME 8.6 fL (7.4-11.0); MONOCYTES # (AUTO) 0.4 x10^3/uL (0.3-0.8); NEUTROPHILS # (AUTO) 2.4 x10^3/uL (2.2-4.8); NEUTROPHILS % (AUTO) 48.4 % (42.0-75.0); PLATELET COUNT 104 X10^3/uL (150.0-450.0); RED BLOOD COUNT 2.11 X10^6/uL (3.5-5.4); RED CELL DISTRIBUTION WIDTH 17.2 % (11.6-16.5); WHITE BLOOD COUNT 4.9 X10^3/uL (3.6-10.0)
[2017-04-05 05:07] LABS: ALANINE AMINOTRANSFERASE 14 Units/L (12-78); ALBUMIN 1.5 g/dL (3.4-5.0); ALKALINE PHOSPHATASE 126 Units/L (46-116); ASPARTATE AMINO TRANSFERASE 20 Units/L (15-37); BLOOD UREA NITROGEN 18 mg/dL (7-18); CALCIUM 7.6 mg/dL (8.5-10.1); CARBON DIOXIDE 35.2 mmol/L (21-32); CHLORIDE 108 mmol/L (98-107); COR CA(FOR HYPOALB) 9.6 mg/dL (8.5-10.1); CREATININE 1.46 mg/dL (0.55-1.02); SODIUM 144 mmol/L (136-145); eGFR BLACK RACES 44 (>60); eGFR NON BLACK RACES 37 (>60)
[2017-04-05 05:15] LABS: HEMOGLOBIN 6.8 g/dL (12.0-16.0)
[2017-04-05] MEDS: INVANZ INJ 1 GM VIAL 1 GM in NS 50 ML IV + SPIKE MINIBAG* 50 ML IV SCH (08:28)
[2017-04-05] MEDS: PriLOSEC PO SCH (08:29)
[2017-04-05] MEDS: LOPRESSOR TAB 25 MG PO SCH ×2 (08:29→20:49)
[2017-04-05] MEDS: LASIX IVP SCH ×2 (08:29→20:48)
[2017-04-05] MEDS: MILK OF MAGNESIA PO SCH ×3 (08:29→20:52)
[2017-04-05] MEDS: DUONEB 0.5 MG/3 MG NEB SCH ×3 (13:02→21:18)
[2017-04-05] MEDS ORDERED: SALINE 3% 15 ML NEB TX ONE (13:11)
[2017-04-05] MEDS ORDERED: SALINE 3% 15 ML NEB TX NEB ONE (13:12)
[2017-04-05] MEDS: NEURONTIN CAP 300 MG PO SCH (20:48)
[2017-04-05] MEDS: SINEquan PO SCH (20:48)
[2017-04-05] MEDS: NORCO 10/325 TAB PO PRN (20:49)
[2017-04-05] MEDS: COLACE CAP 100 MG PO SCH (20:49)
[2017-04-05] MEDS ORDERED: NS 500 ML IV 500 ML IV ONE (21:44)
[2017-04-06] MEDS: CYMBALTA PO SCH (00:05)
[2017-04-06] MEDS: DUONEB 0.5 MG/3 MG NEB SCH ×3 (01:04→09:36)
[2017-04-06] MEDS: NS 1000 ML 1,000 ML IV SCH (02:37)
[2017-04-06 05:10] LABS: BASOPHILS # (AUTO) 0.1 X10^3/uL (0.0-0.1); EOSINOPHILS # (AUTO) 0.3 x10^3/uL (0.0-0.2); EOSINOPHILS % (AUTO) 4.7 % (0.9-2.9); HEMATOCRIT 22.9 % (36.0-47.0); HEMOGLOBIN 7.8 g/dL (12.0-16.0); LYMPHOCYTES # (AUTO) 2.1 X10^3/uL (1.3-2.9); LYMPHOCYTES % (AUTO) 34.5 % (21.0-51.0); MEAN CORPUSCULAR HGB CONC 34.2 g/dL (33.0-35.0); MEAN CORPUSCULAR VOLUME 93.6 fL (80.0-100.0); MEAN PLATELET VOLUME 8.6 fL (7.4-11.0); MONOCYTES # (AUTO) 0.5 x10^3/uL (0.3-0.8); MONOCYTES % (AUTO) 7.5 % (0.0-13.0); NEUTROPHILS # (AUTO) 3.2 x10^3/uL (2.2-4.8); NEUTROPHILS % (AUTO) 52.3 % (42.0-75.0); PLATELET COUNT 119 X10^3/uL (150.0-450.0); RED BLOOD COUNT 2.45 X10^6/uL (3.5-5.4); RED CELL DISTRIBUTION WIDTH 16.8 % (11.6-16.5); WHITE BLOOD COUNT 6.2 X10^3/uL (3.6-10.0)
[2017-04-06 05:20] LABS: ALANINE AMINOTRANSFERASE 12 Units/L (12-78); ALBUMIN 1.4 g/dL (3.4-5.0); ALKALINE PHOSPHATASE 125 Units/L (46-116); ASPARTATE AMINO TRANSFERASE 19 Units/L (15-37); BLOOD UREA NITROGEN 17 mg/dL (7-18); CALCIUM 7.6 mg/dL (8.5-10.1); CARBON DIOXIDE 32.5 mmol/L (21-32); CHLORIDE 105 mmol/L (98-107); COR CA(FOR HYPOALB) 9.7 mg/dL (8.5-10.1); CREATININE 1.47 mg/dL (0.55-1.02); SODIUM 134 mmol/L (136-145); TOTAL PROTEIN 4.8 g/dL (6.4-8.2); eGFR BLACK RACES 44 (>60); eGFR NON BLACK RACES 36 (>60)
[2017-04-06 06:46] LABS: PLATELET MORPHOLOGY COMMENT NORMAL (NORMAL)
[2017-04-06 06:47] LABS: HYPOCHROMASIA 1+
[2017-04-06] MEDS: PriLOSEC PO SCH (09:09)
[2017-04-06] MEDS: INVANZ INJ 1 GM VIAL 1 GM in NS 50 ML IV + SPIKE MINIBAG* 50 ML IV SCH (09:09)
[2017-04-06] MEDS: MILK OF MAGNESIA PO SCH (09:11)
[2017-04-06] MEDS: LOPRESSOR TAB 25 MG PO SCH (09:14)
[2017-04-06] MEDS: LASIX IVP SCH (09:14)
[2017-04-06] MEDS: NORCO 10/325 TAB PO PRN (11:36)
[2017-04-06 12:12] VITALS: BP 91/63
--- NOTE | 2017-04-06 14:59 | PCM.DCPLAN ---
Discharge Summary - Admission Date Date of Admission: 04/02/17 - Discharge Date Discharge Date: 04/06/17 - Admission Diagnoses (1) UTI (urinary tract infection) Status: Acute (2) CHF (congestive heart failure) Status: Acute (3) Altered mental status Status: Acute - Discharge Diagnoses Discharge Diagnosis: HTN, OA COPD, CHF ANEMIA - Hospital Course Vital Signs: Temperature 97.8 F Pulse Rate [Right Brachial] 74 Pulse Rate [Left Brachial] 69 Pulse Rate 76 Respiratory Rate 16 Blood Pressure [Left Arm] 91/63 Blood Pressure [Right Arm] 101/51 Blood Pressure 106/48 O2 Sat by Pulse Oximetry 100 Latest Lab Results: Laboratory Last Values WBC 6.2 X10^3/uL (3.6-10.0) 04/06/17 03:25 RBC 2.45 X10^6/uL (3.5-5.4) L 04/06/17 03:25 Hgb 7.8 g/dL (12.0-16.0) L 04/06/17 03:25 Hct 22.9 % (36.0-47.0) L 04/06/17 03:25 MCV 93.6 fL (80.0-100.0) 04/06/17 03:25 MCH 32.0 pg (27.0-34.0) 04/06/17 03:25 MCHC 34.2 g/dL (33.0-35.0) 04/06/17 03:25 RDW 16.8 % (11.6-16.5) H 04/06/17 03:25 Plt Count 119 X10^3/uL (150.0-450.0) L 04/06/17 03:25 Plt Count Comment Decreased (ADEQUATE) A 04/06/17 03:25 MPV 8.6 fL (7.4-11.0) 04/06/17 03:25 Neut % 52.3 % (42.0-75.0) 04/06/17 03:25 Lymph % 34.5 % (21.0-51.0) 04/06/17 03:25 [place] % 7.5 % (0.0-13.0) 04/06/17 03:25 Eos % 4.7 % (0.9-2.9) H 04/06/17 03:25 Baso % 1.0 % (0.2-1.0) 04/06/17 03:25 Neut # 3.2 x10^3/uL (2.2-4.8) 04/06/17 03:25 Lymph # 2.1 X10^3/uL (1.3-2.9) 04/06/17 03:25 [place] # 0.5 x10^3/uL (0.3-0.8) 04/06/17 03:25 Eos # 0.3 x10^3/uL (0.0-0.2) H 04/06/17 03:25 Baso # 0.1 X10^3/uL (0.0-0.1) 04/06/17 03:25 Absolute Nucleated RBC 0.1 /100WBC 04/06/17 03:25 Plt Morphology Comment Normal (NORMAL) 04/06/17 03:25 RBC Morphology Abnormal (NORMAL) A 04/06/17 03:25 Hypochromasia 1+ A 04/06/17 03:25 Anisocytosis Slight A 04/04/17 03:25 Sodium 134 mmol/L (136-145) L 04/06/17 03:25 Corrected Sodium TNP 04/06/17 03:25 Potassium 3.7 mmol/L (3.5-5.1) 04/06/17 03:25 Chloride 105 mmol/L (98-107) 04/06/17 03:25 Carbon Dioxide 32.5 mmol/L (21-32) H 04/06/17 03:25 BUN 17 mg/dL (7-18) 04/06/17 03:25 Creatinine 1.47 mg/dL (0.55-1.02) H 04/06/17 03:25 Est GFR (MDRD) Af Amer 44 (>60) L 04/06/17 03:25 Est GFR (MDRD) Non-Af 36 (>60) L 04/06/17 03:25 Glucose 73 mg/dL (65-99) 04/06/17 03:25 Calcium 7.6 mg/dL (8.5-10.1) L 04/06/17 03:25 Corrected Calcium 9.7 mg/dL (8.5-10.1) 04/06/17 03:25 Iron 45 ug/dL (50-175) L 04/02/17 03:25 Transferrin 135 mg/dL (202-364) L 04/02/17 03:25 Ferritin 115 ng/mL (8-252) 04/02/17 03:25 Total Bilirubin 0.70 mg/dL (0.2-1.0) 04/06/17 03:25 AST 19 Units/L (15-37) 04/06/17 03:25 ALT 12 Units/L (12-78) 04/06/17 03:25 Alkaline Phosphatase 125 Units/L (46-116) H 04/06/17 03:25 Total Protein 4.8 g/dL (6.4-8.2) L 04/06/17 03:25 Albumin 1.4 g/dL (3.4-5.0) L 04/06/17 03:25 Globulin 3.4 g/dL (2.5-4.5) 04/06/17 03:25 Albumin/Globulin Ratio 0.4 Ratio (1.1-2.1) L 04/06/17 03:25 Vitamin B12 724 pg/mL (193-986) 04/02/17 03:25 Folate 4.2 ng/mL (>8.6) L 04/02/17 03:25 Specimen Type Catherized urine 04/02/17 10:45 Urine Color Yellow (YELLOW) 04/02/17 10:45 Urine Appearance Clear (CLEAR) 04/02/17 10:45 Urine pH 7.0 (5.0 - 8.0) 04/02/17 10:45 Ur Specific [place] 1.010 (1.000-1.030) 04/02/17 10:45 Urine Protein Negative (NEGATIVE) 04/02/17 10:45 Urine Glucose (UA) Negative (NEGATIVE) 04/02/17 10:45 Urine Ketones Negative (NEGATIVE) 04/02/17 10:45 Urine Occult Blood Negative (NEGATIVE) 04/02/17 10:45 Urine Nitrite Negative (NEGATIVE) 04/02/17 10:45 Urine Bilirubin Negative (NEGATIVE) 04/02/17 10:45 Urine Urobilinogen Normal (NORMAL) 04/02/17 10:45 Ur Leukocyte Esterase Negative (NEGATIVE) 04/02/17 10:45 Urine RBC 0-1 /HPF (NEGATIVE) 04/02/17 10:45 Urine WBC 0-3 /HPF (NEGATIVE) 04/02/17 10:45 Ur Squamous Epith Cells Few /HPF (NEGATIVE) 04/02/17 10:45 Amorphous Sediment Trace /HPF (NEGATIVE) 03/31/17 14:54 Urine Bacteria Negative /HPF (NEGATIVE) 04/02/17 10:45 Ur Culture Indicated? No/not indicated 04/02/17 10:45 Stool Description 20g,brow, formed 04/03/17 14:27 Stl Occult Blood (IFOB) Positive (NEGATIVE) A 04/03/17 14:27 Blood Type A POSITIVE 04/05/17 06:25 Antibody Screen Negative 04/05/17 06:25 Crossmatch See Detail 04/05/17 06:25 Hospital Course: Mrs. Shaw is a 81-year-old white female who was admitted on 1211 with altered mental status secondary to UTI. Patient was a readmission to the [facility] previously treated for Escherichia coli resistant UTI infection. Patient was started on IV antibiotics have blood and repeat urine culture. During stay patient had abnormal chest x-ray with increased pulmonary congestion and findings consistent with CHF. Patient had a Marti catheter with IV Lasix for diuresis therapy. Patient also had an echocardiogram while inpatient. Patient received several days of IV antibiotics. Patient's urine culture on this day was negative. Patient was noted to be anemic as well as iron deficient. Patient received infusion of iron dextran on while inpatient as well as 1 unit of packed red blood cells. Patient's hemoglobin improved status post transfusion patient was more awake and alert and was able to feed herself. Patient was afebrile. Patient did state she felt much improved patient was alert awake and oriented upon discharge. We discharged her home to resume home medications please see discharge plan for list of discharge medications follow-up in instructions including repeat labs In electronic medical record for diagnostic test results and laboratory results - Discharge Plan Disposition: 03 XFER SNF Condition: Stable - Follow ups/Referrals Follow ups/Referrals: GIL NOVOA [Primary Care Provider] - - Instructions Additional Instructions: REPEAT CBC CMP IN ONE WEEK CONTINUE IRON REPLACEMENT PO 325 DAILY RESUME HOME MEDS ENCOURAGE HYDRATION NEEDS SLEEP STUDY, PT STATES SHE HAS CPAP AT HOME BP MONITORING
== END 2017-04-06 12:25 | DRG 690 ==
LOC: UNDOADMOB 11:11 → MED/SURG 11:11 → OBSVTOIN 04-02 08:30
PROVIDERS: ADMIT Internal Medicine; ATTEND Internal Medicine
PROC: 30233N1 Transfusion of Nonautologous Red Blood Cells into Peripheral Vein, Percutaneous Approach (ICD-10-PCS; principal; 2017-04-05)
DX: N39.0 Urinary tract infection, site not specified (principal); R40.4 Transient alteration of awareness; I50.9 Heart failure, unspecified; R94.31 Abnormal electrocardiogram [ECG] [EKG]; B96.29 Other Escherichia coli [E. coli] as the cause of diseases classified elsewhere; I10 Essential (primary) hypertension; D64.89 Other specified anemias; J44.9 Chronic obstructive pulmonary disease, unspecified; M19.90 Unspecified osteoarthritis, unspecified site
CPT/HCPCS: 36415; 36430; 71010; 80053; 81001; 82270; 82607; 82728; 82746; 83540; 84466; 85025; 86850; 86900; 86901; 86922; 87040; 87070; 87086; 87205; 93005; 93010; 93306; 94640; 94760; A4216; A4222; P9016; G0378; J1335; J1940; J7620

== ENCOUNTER 2017-10-29 17:58 | Inpatient (IN) ==
--- NOTE | 2017-10-29 19:06 | RAD ---
HISTORY: 81-year-old female with CHF. Study: Frontal view of the chest. Comparison: Chest radiograph 04/04/2017 Findings: Study is limited secondary to technique, patient body habitus and positioning. Posterior spinal fusio n construct is overall unchanged. The trachea is midline. The cardiac silhouette is significantly enlarged and stable with chronic pro minence of the interstitium and perihilar lung markings. Likely trace effusions without pneumothorax or large consolidation. Soft tissues are unremarkable. Osseous structures are unremarkable. IMPRESSION: 1. Cardiomegaly with likely trace bilateral effusions, correlate with serology for CHF exacerbation. Reported By:
[2017-10-29 19:16] LABS: BASOPHILS # (AUTO) 0.1 X10^3/uL (0.0-0.1); BASOPHILS % (AUTO) 1.4 % (0.2-1.0); EOSINOPHILS % (AUTO) 0.1 % (0.9-2.9); HEMATOCRIT 33.1 % (36.0-47.0); HEMOGLOBIN 11.1 g/dL (12.0-16.0); LYMPHOCYTES # (AUTO) 0.7 X10^3/uL (1.3-2.9); MEAN CORPUSCULAR HEMOGLOBIN 34.1 pg (27.0-34.0); MEAN CORPUSCULAR HGB CONC 33.5 g/dL (33.0-35.0); MEAN CORPUSCULAR VOLUME 101.9 fL (80.0-100.0); MEAN PLATELET VOLUME 9.3 fL (7.4-11.0); MONOCYTES # (AUTO) 0.4 x10^3/uL (0.3-0.8); MONOCYTES % (AUTO) 6.6 % (0.0-13.0); NEUTROPHILS % (AUTO) 80.9 % (42.0-75.0); PLATELET COUNT 106 X10^3/uL (150.0-450.0); RED BLOOD COUNT 3.25 X10^6/uL (3.5-5.4); RED CELL DISTRIBUTION WIDTH 14.7 % (11.6-16.5); WHITE BLOOD COUNT 6.2 X10^3/uL (3.6-10.0)
[2017-10-29 19:30] LABS: BILIRUBIN,URINE NEGATIVE (NEGATIVE); BLOOD/HEMOGLOBIN,URINE 5+ (NEGATIVE); GLUCOSE, URINE NEGATIVE (NEGATIVE); KETONES,URINE NEGATIVE (NEGATIVE); LEUKOCYTE ESTERASE ,URINE 3+ (NEGATIVE); NITRITES,URINE NEGATIVE (NEGATIVE); PROTEIN,URINE 2+ (NEGATIVE); UROBILINOGEN,URINE NORMAL (NORMAL)
[2017-10-29 19:33] LABS: ALBUMIN 2.8 g/dL (3.4-5.0); CALCIUM 8.6 mg/dL (8.5-10.1); CARBON DIOXIDE 33.4 mmol/L (21-32); COR CA(FOR HYPOALB) 9.6 mg/dL (8.5-10.1); CREATININE 1.69 mg/dL (0.55-1.02)
[2017-10-29 19:40] LABS: APPEARANCE,URINE CLOUDY (CLEAR); COLOR,URINE YELLOW (YELLOW)
[2017-10-29 19:41] LABS: BACTERIA,URINE 4+ /HPF (NEGATIVE); RBC,URINE TNTC /HPF (NONE SEEN); SQUAMOUS EPITHELIAL CELL,UR RARE /HPF (NEGATIVE)
[2017-10-29 20:04] LABS: CREATINE KINASE MB 12.6 ng/mL (0-4.0)
[2017-10-29 20:05] LABS: TROPONIN I 2.57 ng/mL (0-1.5)
[2017-10-29] MEDS ORDERED: PLAVIX PO STA (20:45)
[2017-10-29] MEDS ORDERED: HEPARIN SODIUM INJ 5000 UNITS IVP ONE (20:58)
[2017-10-29] MEDS ORDERED: PROTONIX INJ 40 MG VIAL IVP SCH (21:00)
[2017-10-29] MEDS: LASIX IVP SCH (21:13)
[2017-10-29] MEDS ORDERED: ASPIRIN EC 81 MG PO ONE ×2 (21:37)
[2017-10-29] MEDS ORDERED: ASPIRIN EC 81 MG PO STA (21:38)
[2017-10-29] MEDS: HEPARIN SODIUM IN D5W 25,000 UNITS/500 ML BAG IV PRN (21:45)
[2017-10-29] MEDS ORDERED: TESSALON PERLES PO PRN (21:59)
[2017-10-29] MEDS ORDERED: ROCEPHIN 1 GRAM IV PREMIX 1 G/50 ML IV.SOLN. IV SCH (22:00)
--- NOTE | 2017-10-29 22:05 | DR.H&P ---
H&P - History & Physical for Day of: H&P Date: 10/29/17 - Chief Complaint Chief Complaint: Shortness of breath. - History of Present Illness History of Present Illness: The patient is a 81yo WF resident of [facility] who developed SOB. Chest xray revealed CHF. Patient had been taking Lasix 40mg po BID. Additional Lasix 20mg IM was given with no improvement of SOB. Patient subsequently admitted. Patient on initial labs noted to have elevated Troponin but denies active chest pain. Patient is a DNR. - Past Medical History Past Medical History: COPD, GERD, Hypertension, PUD Additional Medical History: Lumbar DDD with hx FX - Past Surgical History Surgical History: Appendectomy, Cholecystectomy, Hysterectomy, Tonsillectomy Additional Surgical History: Posterior cervical and lumbar laminectomy, orif left ankle, egd - Family History Family Medical History: Coronary Artery Disease, Hypertension - Social History Does patient currently use any type of tobacco product: No Have you used tobacco products in the last 12 months: No Type of Tobacco Use: None Alcohol Use: None Drug Use: None - Medications Home Medications: aspirin Allergy (Verified 01/30/17 15:42) diphenhydramine [From Benadryl] Allergy (Verified 01/30/17 15:43) lisinopril Allergy (Verified 01/30/17 15:43) zolpidem [From Ambien] Allergy (Verified 01/30/17 15:42) CONTINUE taking the following medications desvenlafaxine succinate [Pristiq] 1 tab PO HS 10/29/17 [History] escitalopram oxalate [Lexapro] 1 tab PO DAILY 10/29/17 [History] loratadine [Claritin] 1 tab PO DAILY 10/29/17 [History] - Review of Systems Constitutional: Weakness Eyes: No Symptoms Reported ENT: No Symptoms Reported Respiratory: Shortness of Breath Cardiovascular: Edema Gastrointestinal: No Symptoms Reported Genitourinary: No Symptoms Reported Musculoskeletal: Back Pain, Leg Pain Skin: No Symptoms Reported Neurological: No Symptoms Reported - Physical Exam Vital Signs: Blood Pressure [Left Arm] 91/63 Blood Pressure [Right Arm] 101/51 Blood Pressure 91/63 Oriented: Normal Eyes: Normal Ear: Normal Nose: Normal Throat: Normal Respiratory: RLL Rales, LLL Rales Cardiovascular: Normal : Normal Auscultation: Bowel Sounds: Normal Palpation: Normal Tenderness: Normal Skin: Normal Musculoskeletal: Motor Deficit (Weak, bedbound) Psychiatric: Normal Mood Description: Calm Affect: Normal Speech Pattern: Clear - Assessment/Plan (1) Acute myocardial infarction Status: Acute Plan: Heparin, Plavix, Telemetry (2) Chronic kidney disease Status: Acute Plan: Monitor BUN/CR/GFR (3) CHF (congestive heart failure) Status: Acute Plan: IV Lasix, CXR (4) UTI (urinary tract infection) Status: Acute Plan: Rocephin IV, UA Culture - Allergies Allergies/Adverse Reactions: Allergies Allergy/AdvReac Type Severity Reaction Status Date / Time aspirin Allergy Verified 01/30/17 15:42 diphenhydramine Allergy Verified 01/30/17 15:43 [From Benadryl] lisinopril Allergy Verified 01/30/17 15:43 zolpidem [From Ambien] Allergy Verified 01/30/17 15:42
[2017-10-29] MEDS: NORCO 10/325 TAB PO PRN (22:21)
[2017-10-29] MEDS ORDERED: ROCEPHIN VIAL 1 GRAM ONE (22:29)
[2017-10-29] MEDS ORDERED: NS 100 ML IV + SPIKE MINIBAG* 100 ML IV ONE (22:29)
[2017-10-29] MEDS ORDERED: NS 250 ML IV 250 ML IV ONE (22:29)
[2017-10-29] MEDS: ROCEPHIN VIAL 1 GRAM 1 G in NS 100 ML IV + SPIKE MINIBAG* 100 ML IV SCH (22:58)
[2017-10-29] MEDS ORDERED: MORPHINE SULFATE INJ 2 MG INJ ONE ×2 (23:57)
[2017-10-29] MEDS ORDERED: NITRO-BID OINT 2% UD (E.R. USE ONLY) ONE ×2 (23:57)
[2017-10-30] MEDS: MORPHINE SULFATE INJ 2 MG INJ IVP PRN ×4 (00:01→19:37)
[2017-10-30] MEDS: NITRO-BID OINT 2% Multi-Dose tube TD SCH ×4 (00:25→21:15)
[2017-10-30 01:22] LABS: CKMB % 11.2 % (<4)
[2017-10-30 01:25] LABS: CREATINE KINASE MB 12.2 ng/mL (0-4.0); TROPONIN I 2.16 ng/mL (0-1.5)
[2017-10-30] MEDS ORDERED: NITRO-BID OINT 2% UD (E.R. USE ONLY) ONE ×4 (05:43→21:15)
[2017-10-30] MEDS ORDERED: MORPHINE SULFATE INJ 2 MG INJ ONE ×3 (07:07→15:13)
[2017-10-30] MEDS ORDERED: LOPRESSOR TAB 25 MG ONE ×2 (07:08)
[2017-10-30 07:10] LABS: BASOPHILS # (AUTO) 0.1 X10^3/uL (0.0-0.1); BASOPHILS % (AUTO) 0.6 % (0.2-1.0); EOSINOPHILS # (AUTO) 0.1 x10^3/uL (0.0-0.2); EOSINOPHILS % (AUTO) 0.7 % (0.9-2.9); HEMATOCRIT 31.4 % (36.0-47.0); HEMOGLOBIN 10.6 g/dL (12.0-16.0); LYMPHOCYTES # (AUTO) 2.2 X10^3/uL (1.3-2.9); LYMPHOCYTES % (AUTO) 27.1 % (21.0-51.0); MEAN CORPUSCULAR HGB CONC 33.9 g/dL (33.0-35.0); MEAN CORPUSCULAR VOLUME 100.4 fL (80.0-100.0); MONOCYTES # (AUTO) 0.9 x10^3/uL (0.3-0.8); MONOCYTES % (AUTO) 10.9 % (0.0-13.0); NEUTROPHILS # (AUTO) 4.9 x10^3/uL (2.2-4.8); NEUTROPHILS % (AUTO) 60.7 % (42.0-75.0); PLATELET COUNT 103 X10^3/uL (150.0-450.0); RED BLOOD COUNT 3.12 X10^6/uL (3.5-5.4); RED CELL DISTRIBUTION WIDTH 14.4 % (11.6-16.5)
[2017-10-30 07:22] LABS: CHOL/HDL RATIO 2.3 (0.0-5.0)
[2017-10-30 07:23] LABS: ALANINE AMINOTRANSFERASE 10 Units/L (12-78); ALBUMIN 2.8 g/dL (3.4-5.0); ALKALINE PHOSPHATASE 128 Units/L (46-116); ASPARTATE AMINO TRANSFERASE 47 Units/L (15-37); BLOOD UREA NITROGEN 32 mg/dL (7-18); CALCIUM 8.6 mg/dL (8.5-10.1); CARBON DIOXIDE 31.1 mmol/L (21-32); CHLORIDE 94 mmol/L (98-107); COR CA(FOR HYPOALB) 9.6 mg/dL (8.5-10.1); CREATININE 1.59 mg/dL (0.55-1.02); SODIUM 130 mmol/L (136-145); TOTAL PROTEIN 8.5 g/dL (6.4-8.2); eGFR NON BLACK RACES 33 (>60)
[2017-10-30 07:53] LABS: CKMB % 12.9 % (<4)
[2017-10-30] MEDS ORDERED: LEXAPRO ONE (07:56)
[2017-10-30 08:21] LABS: CREATINE KINASE MB 10.2 ng/mL (0-4.0)
[2017-10-30 08:22] LABS: TROPONIN I 1.69 ng/mL (0-1.5)
[2017-10-30] MEDS: LEXAPRO PO SCH (08:30)
[2017-10-30] MEDS: NEURONTIN CAP 300 MG PO SCH ×2 (08:30→20:31)
[2017-10-30] MEDS: LOPRESSOR TAB 25 MG PO SCH ×2 (08:30→20:32)
[2017-10-30] MEDS: ASPIRIN EC 81 MG PO SCH (08:30)
[2017-10-30] MEDS: LASIX IVP SCH ×2 (08:30→20:32)
[2017-10-30] MEDS: MOBIC TAB 15 MG PO SCH (08:30)
[2017-10-30] MEDS: PROTONIX INJ 40 MG VIAL IVP SCH ×2 (08:31→20:32)
[2017-10-30] MEDS: PLAVIX PO SCH (08:31)
[2017-10-30] MEDS: CYMBALTA PO SCH (08:32)
[2017-10-30] MEDS ORDERED: LOPRESSOR TAB 25 MG PO SCH (09:00)
[2017-10-30] MEDS ORDERED: CLARITIN PO SCH (09:00)
[2017-10-30] MEDS ORDERED: PriLOSEC PO SCH (09:00)
[2017-10-30] MEDS ORDERED: MELOXICAM PO SCH (09:00)
[2017-10-30] MEDS ORDERED: CYMBALTA PO SCH (09:00)
[2017-10-30] MEDS ORDERED: CATAPRES TAB 0.1 MG PO SCH (09:00)
[2017-10-30] MEDS ORDERED: BUTT CREAM (COMPOUND) ONE (15:17)
[2017-10-30] MEDS: BUTT CREAM (COMPOUND) TOP PRN (15:28)
[2017-10-30] MEDS ORDERED: NS 500 ML IV 500 ML IV ONE (20:03)
[2017-10-30] MEDS: XANAX PO SCH (20:32)
[2017-10-30] MEDS: ROCEPHIN VIAL 1 GRAM 1 G in NS 100 ML IV + SPIKE MINIBAG* 100 ML IV SCH (20:32)
[2017-10-30] MEDS: DESVENLAFAXINE SUCCINATE PO SCH (20:42)
--- NOTE | 2017-10-30 22:35 | PCM.PROG ---
Progress Note - Progress Note for Day of Date of Exam: 10/30/17 - Subjective Subjective: 81 YO WF RESIDENT OF [facility] ADMITTED FOR DYSPNEA/CHF. HAD ELEVATED TROPONINS. STATES SHE DID HAVE CHEST PAIN. IS ON HEPARIN. DENIES ACTIVE CHEST PAIN NOW. DENIES SOB. NO OTHER COMPLAINTS VOICED. - Past Medical Family Social History Past Med/Fam/Surg Hx: No changes since H&P Allergies: Allergies aspirin Allergy (Verified 01/30/17 15:42) diphenhydramine [From Benadryl] Allergy (Verified 01/30/17 15:43) lisinopril Allergy (Verified 01/30/17 15:43) zolpidem [From Ambien] Allergy (Verified 01/30/17 15:42) - Review of Systems ROS: No change since H&P - Vital Signs and I&O's Vital Signs: Temperature 98.5 F Pulse Rate [Apical] 80 Respiratory Rate 16 Blood Pressure [Left Arm] 89/53 Blood Pressure [Right Arm] 101/51 Blood Pressure 91/63 O2 Sat by Pulse Oximetry 98 Intake and Output: Intake & Output 10/28/17 10/29/17 10/30/17 10/31/17 11:59 11:59 11:59 11:59 Intake Total 852 / 852 775 / 775 Output Total 350 / 350 250 / 250 Balance 502 / 502 525 / 525 - Physical Exam Oriented: Normal Eyes: Normal Ear: Normal Nose: Normal Throat: Normal Respiratory: Diminished Cardiovascular: Normal : Normal Auscultation: Bowel Sounds: Normal Palpation: Normal Tenderness: Normal Skin: Normal Musculoskeletal: Motor Deficit (Weak, bedbound) Psychiatric: Normal Mood Description: Calm Affect: Normal Speech Pattern: Clear, Appropriate - Laboratory and Diagnostics Result Diagrams: 10/30/17 06:55 10/30/17 06:55 Labs: 10/29/17 19:15 Urine,Catheterized Urine Culture - Preliminary Laboratory WBC 8.0 X10^3/uL (3.6-10.0) 10/30/17 06:55 RBC 3.12 X10^6/uL (3.5-5.4) L 10/30/17 06:55 Hgb 10.6 g/dL (12.0-16.0) L 10/30/17 06:55 Hct 31.4 % (36.0-47.0) L 10/30/17 06:55 MCV 100.4 fL (80.0-100.0) H 10/30/17 06:55 MCH 34.0 pg (27.0-34.0) 10/30/17 06:55 MCHC 33.9 g/dL (33.0-35.0) 10/30/17 06:55 RDW 14.4 % (11.6-16.5) 10/30/17 06:55 Plt Count 103 X10^3/uL (150.0-450.0) L 10/30/17 06:55 MPV 9.0 fL (7.4-11.0) 10/30/17 06:55 Neut % (Auto) 60.7 % (42.0-75.0) 10/30/17 06:55 Lymph % (Auto) 27.1 % (21.0-51.0) 10/30/17 06:55 Dare % (Auto) 10.9 % (0.0-13.0) 10/30/17 06:55 Eos % (Auto) 0.7 % (0.9-2.9) L 10/30/17 06:55 Baso % (Auto) 0.6 % (0.2-1.0) 10/30/17 06:55 Neut # (Auto) 4.9 x10^3/uL (2.2-4.8) H 10/30/17 06:55 Lymph # (Auto) 2.2 X10^3/uL (1.3-2.9) 10/30/17 06:55 Dare # (Auto) 0.9 x10^3/uL (0.3-0.8) H 10/30/17 06:55 Eos # (Auto) 0.1 x10^3/uL (0.0-0.2) 10/30/17 06:55 Baso # (Auto) 0.1 X10^3/uL (0.0-0.1) 10/30/17 06:55 Absolute Nucleated RBC 0.1 /100WBC 10/30/17 06:55 INR Target Range - 10/29/17 20:58 INR 1.11 (0.8-1.3) 10/29/17 20:58 APTT 117.0 SECONDS (22.9-36.5) H 10/30/17 15:04 PTT Comment - 10/30/17 15:04 Sodium 130 mmol/L (136-145) L 10/30/17 06:55 Corrected Sodium TNP 10/30/17 06:55 Potassium 4.7 mmol/L (3.5-5.1) 10/30/17 06:55 Chloride 94 mmol/L (98-107) L 10/30/17 06:55 Carbon Dioxide 31.1 mmol/L (21-32) 10/30/17 06:55 BUN 32 mg/dL (7-18) H 10/30/17 06:55 Creatinine 1.59 mg/dL (0.55-1.02) H 10/30/17 06:55 Est GFR (MDRD) Af Amer 40 (>60) L 10/30/17 06:55 Est GFR (MDRD) Non-Af 33 (>60) L 10/30/17 06:55 Glucose 92 mg/dL (65-99) 10/30/17 06:55 POC Glucose (mg/dL) 88 mg/dL (65-99) 10/30/17 11:01 Calcium 8.6 mg/dL (8.5-10.1) 10/30/17 06:55 Corrected Calcium 9.6 mg/dL (8.5-10.1) 10/30/17 06:55 Magnesium 2.0 mg/dL (1.7-2.9) 10/29/17 19:03 Total Bilirubin 0.90 mg/dL (0.2-1.0) 10/30/17 06:55 AST 47 Units/L (15-37) H 10/30/17 06:55 ALT 10 Units/L (12-78) L 10/30/17 06:55 Alkaline Phosphatase 128 Units/L (46-116) H 10/30/17 06:55 Creatine Kinase 79 Units/L (26-192) 10/30/17 06:55 CK-MB (CK-2) 10.2 ng/mL (0-4.0) H* 10/30/17 06:55 CK/CKMB % Calc 12.9 % (<4) 10/30/17 06:55 Troponin I 1.69 ng/mL (0-1.5) H* 10/30/17 06:55 Total Protein 8.5 g/dL (6.4-8.2) H 10/30/17 06:55 Albumin 2.8 g/dL (3.4-5.0) L 10/30/17 06:55 Globulin 5.7 g/dL (2.5-4.5) H 10/30/17 06:55 Albumin/Globulin Ratio 0.5 Ratio (1.1-2.1) L 10/30/17 06:55 Triglycerides 84 mg/dL (0-150) 10/30/17 06:55 Cholesterol 108 mg/dL (0-200) 10/30/17 06:55 LDL Cholesterol, Calc 44 mg/dL (0-100) 10/30/17 06:55 HDL Cholesterol 47 mg/dL (40-60) 10/30/17 06:55 Cholesterol/HDL Ratio 2.3 (0.0-5.0) 10/30/17 06:55 Specimen Type Catherized urine 10/29/17 19:15 Urine Color Yellow (YELLOW) 10/29/17 19:15 Urine Appearance Cloudy (CLEAR) 10/29/17 19:15 Urine pH 5.0 (5.0 - 8.0) 10/29/17 19:15 Ur Specific [place] 1.020 (1.000-1.030) 10/29/17 19:15 Urine Protein 2+ (NEGATIVE) 10/29/17 19:15 Urine Glucose (UA) Negative (NEGATIVE) 10/29/17 19:15 Urine Ketones Negative (NEGATIVE) 10/29/17 19:15 Urine Occult Blood 5+ (NEGATIVE) 10/29/17 19:15 Urine Nitrite Negative (NEGATIVE) 10/29/17 19:15 Urine Bilirubin Negative (NEGATIVE) 10/29/17 19:15 Urine Urobilinogen Normal (NORMAL) 10/29/17 19:15 Ur Leukocyte Esterase 3+ (NEGATIVE) 10/29/17 19:15 Urine RBC Tntc /HPF (NONE SEEN) 10/29/17 19:15 Urine WBC 30-50 /HPF (NONE SEEN) 10/29/17 19:15 Ur Squamous Epith Cells Rare /HPF (NEGATIVE) 10/29/17 19:15 Urine Bacteria 4+ /HPF (NEGATIVE) 07/09/18 19:15 Ur Culture Indicated? Yes/culture set up 10/29/17 19:15 - Plan (1) Acute myocardial infarction Status: Acute Plan: Heparin, Plavix, Telemetry (2) Chronic kidney disease Status: Acute Plan: Monitor BUN/CR/GFR (3) CHF (congestive heart failure) Status: Acute Plan: IV Lasix, CXR (4) UTI (urinary tract infection) Status: Acute Plan: Rocephin IV, UA Culture
[2017-10-31 04:18] LABS: BASOPHILS % (AUTO) 0.6 % (0.2-1.0); EOSINOPHILS # (AUTO) 0.1 x10^3/uL (0.0-0.2); EOSINOPHILS % (AUTO) 1.7 % (0.9-2.9); HEMATOCRIT 31.6 % (36.0-47.0); HEMOGLOBIN 10.7 g/dL (12.0-16.0); LYMPHOCYTES # (AUTO) 1.9 X10^3/uL (1.3-2.9); LYMPHOCYTES % (AUTO) 33.2 % (21.0-51.0); MEAN CORPUSCULAR HEMOGLOBIN 34.2 pg (27.0-34.0); MEAN CORPUSCULAR HGB CONC 33.9 g/dL (33.0-35.0); MEAN CORPUSCULAR VOLUME 101.1 fL (80.0-100.0); MEAN PLATELET VOLUME 9.3 fL (7.4-11.0); MONOCYTES # (AUTO) 0.7 x10^3/uL (0.3-0.8); MONOCYTES % (AUTO) 11.8 % (0.0-13.0); NEUTROPHILS # (AUTO) 3.1 x10^3/uL (2.2-4.8); NEUTROPHILS % (AUTO) 52.7 % (42.0-75.0); PLATELET COUNT 96 X10^3/uL (150.0-450.0); RED BLOOD COUNT 3.12 X10^6/uL (3.5-5.4); RED CELL DISTRIBUTION WIDTH 14.4 % (11.6-16.5); WHITE BLOOD COUNT 5.9 X10^3/uL (3.6-10.0)
[2017-10-31 04:32] LABS: ALANINE AMINOTRANSFERASE 20 Units/L (12-78); ALBUMIN 2.6 g/dL (3.4-5.0); ALKALINE PHOSPHATASE 120 Units/L (46-116); ASPARTATE AMINO TRANSFERASE 38 Units/L (15-37); BLOOD UREA NITROGEN 32 mg/dL (7-18); CALCIUM 8.4 mg/dL (8.5-10.1); CARBON DIOXIDE 36.7 mmol/L (21-32); CHLORIDE 94 mmol/L (98-107); COR CA(FOR HYPOALB) 9.5 mg/dL (8.5-10.1); CREATININE 1.79 mg/dL (0.55-1.02); SODIUM 130 mmol/L (136-145); TOTAL PROTEIN 7.6 g/dL (6.4-8.2); eGFR NON BLACK RACES 29 (>60)
[2017-10-31] MEDS: HEPARIN SODIUM IN D5W 25,000 UNITS/500 ML BAG IV PRN (04:45)
[2017-10-31] MEDS ORDERED: NITRO-BID OINT 2% UD (E.R. USE ONLY) ONE (05:24)
[2017-10-31] MEDS: NITRO-BID OINT 2% Multi-Dose tube TD SCH ×3 (05:45→22:36)
--- NOTE | 2017-10-31 06:22 | RAD ---
HISTORY: Congestive heart failure Study: Chest AP portable Comparison: 10/29/2017 Findings: The heart is enlarged. Mild pulmonary venous congestion is present. No interstitial edema, alveolar e del, or alveolar infiltrates are identified. The aorta is ectatic and calcified. No definite pleural effusions are identified. The bony thorax is unremarkable. IMPRESSION: Moderate cardiomegaly with pulmonary venous congestion Reported By:
[2017-10-31 08:01] VITALS: BMI 32.9
[2017-10-31] MEDS ORDERED: LEXAPRO ONE (08:55)
[2017-10-31] MEDS: MOBIC TAB 15 MG PO SCH (09:07)
[2017-10-31] MEDS: ASPIRIN EC 81 MG PO SCH (09:07)
[2017-10-31] MEDS: CYMBALTA PO SCH (09:08)
[2017-10-31] MEDS: PROTONIX INJ 40 MG VIAL IVP SCH ×2 (09:08→20:35)
[2017-10-31] MEDS: NEURONTIN CAP 300 MG PO SCH ×2 (09:08→20:37)
[2017-10-31] MEDS: LEXAPRO PO SCH (09:08)
[2017-10-31] MEDS: PLAVIX PO SCH (09:09)
[2017-10-31] MEDS: CLARITIN PO SCH (09:10)
[2017-10-31] MEDS: LASIX IVP SCH ×2 (09:23→22:36)
[2017-10-31] MEDS: LOPRESSOR TAB 25 MG PO SCH ×2 (09:23→20:37)
[2017-10-31] MEDS: NORCO 10/325 TAB PO PRN (10:24)
[2017-10-31] MEDS: XOPENEX 1.25 MG/3 ML NEBULE NEB SCH ×3 (12:10→20:31)
--- NOTE | 2017-10-31 12:11 | PCM.PROG ---
Progress Note - Progress Note for Day of Date of Exam: 10/31/17 - Subjective Subjective: 81 YO WF RESIDENT OF [facility] ADMITTED FOR DYSPNEA/CHF. HAD ELEVATED TROPONINS. STATES SHE DID HAVE CHEST PAIN. IS ON HEPARIN. DENIES ACTIVE CHEST PAIN NOW. DENIES SOB. NO OTHER COMPLAINTS VOICED. - Past Medical Family Social History Past Med/Fam/Surg Hx: No changes since H&P Allergies: Allergies aspirin Allergy (Verified 01/30/17 15:42) diphenhydramine [From Benadryl] Allergy (Verified 01/30/17 15:43) lisinopril Allergy (Verified 01/30/17 15:43) zolpidem [From Ambien] Allergy (Verified 01/30/17 15:42) - Review of Systems ROS: No change since H&P - Vital Signs and I&O's Vital Signs: Temperature 97.9 F Pulse Rate [Apical] 80 Pulse Rate 88 Respiratory Rate 16 Blood Pressure [Left Arm] 112/63 Blood Pressure [Right Arm] 101/51 Blood Pressure 91/63 O2 Sat by Pulse Oximetry 100 Intake and Output: Intake & Output 10/29/17 10/30/17 10/31/17 11/01/17 11:59 11:59 11:59 11:59 Intake Total 852 / 852 1711 / 1711 Output Total 350 / 350 750 / 750 Balance 502 / 502 961 / 961 - Physical Exam Oriented: Normal Eyes: Normal Ear: Normal Nose: Normal Throat: Normal Respiratory: Right, Left, Diminished, Wheezes Cardiovascular: Normal : Normal Auscultation: Bowel Sounds: Normal Palpation: Normal Tenderness: Normal Skin: Normal Musculoskeletal: Motor Deficit (Weak, bedbound) Psychiatric: Normal Mood Description: Calm Affect: Normal Speech Pattern: Clear, Appropriate - Laboratory and Diagnostics Result Diagrams: 10/31/17 03:50 10/31/17 03:50 Labs: 10/29/17 19:15 Urine,Catheterized Urine Culture - Preliminary Laboratory WBC 5.9 X10^3/uL (3.6-10.0) 10/31/17 03:50 RBC 3.12 X10^6/uL (3.5-5.4) L 10/31/17 03:50 Hgb 10.7 g/dL (12.0-16.0) L 10/31/17 03:50 Hct 31.6 % (36.0-47.0) L 10/31/17 03:50 MCV 101.1 fL (80.0-100.0) H 10/31/17 03:50 MCH 34.2 pg (27.0-34.0) H 10/31/17 03:50 MCHC 33.9 g/dL (33.0-35.0) 10/31/17 03:50 RDW 14.4 % (11.6-16.5) 10/31/17 03:50 Plt Count 96 X10^3/uL (150.0-450.0) L 10/31/17 03:50 MPV 9.3 fL (7.4-11.0) 10/31/17 03:50 Neut % (Auto) 52.7 % (42.0-75.0) 10/31/17 03:50 Lymph % (Auto) 33.2 % (21.0-51.0) 10/31/17 03:50 [place] % (Auto) 11.8 % (0.0-13.0) 10/31/17 03:50 Eos % (Auto) 1.7 % (0.9-2.9) 10/31/17 03:50 Baso % (Auto) 0.6 % (0.2-1.0) 10/31/17 03:50 Neut # (Auto) 3.1 x10^3/uL (2.2-4.8) 10/31/17 03:50 Lymph # (Auto) 1.9 X10^3/uL (1.3-2.9) 10/31/17 03:50 [place] # (Auto) 0.7 x10^3/uL (0.3-0.8) 10/31/17 03:50 Eos # (Auto) 0.1 x10^3/uL (0.0-0.2) 10/31/17 03:50 Baso # (Auto) 0.0 X10^3/uL (0.0-0.1) 10/31/17 03:50 Absolute Nucleated RBC 0.0 /100WBC 10/31/17 03:50 INR Target Range - 10/29/17 20:58 INR 1.11 (0.8-1.3) 10/29/17 20:58 APTT 79.0 SECONDS (22.9-36.5) H 10/31/17 03:50 PTT Comment - 10/31/17 03:50 Sodium 130 mmol/L (136-145) L 10/31/17 03:50 Corrected Sodium TNP 10/31/17 03:50 Potassium 4.3 mmol/L (3.5-5.1) 10/31/17 03:50 Chloride 94 mmol/L (98-107) L 10/31/17 03:50 Carbon Dioxide 36.7 mmol/L (21-32) H 10/31/17 03:50 BUN 32 mg/dL (7-18) H 10/31/17 03:50 Creatinine 1.79 mg/dL (0.55-1.02) H 10/31/17 03:50 Est GFR (MDRD) Af Amer 35 (>60) L 10/31/17 03:50 Est GFR (MDRD) Non-Af 29 (>60) L 10/31/17 03:50 Glucose 97 mg/dL (65-99) 10/31/17 03:50 POC Glucose (mg/dL) 88 mg/dL (65-99) 10/30/17 11:01 Calcium 8.4 mg/dL (8.5-10.1) L 10/31/17 03:50 Corrected Calcium 9.5 mg/dL (8.5-10.1) 10/31/17 03:50 Magnesium 2.0 mg/dL (1.7-2.9) 10/29/17 19:03 Total Bilirubin 0.60 mg/dL (0.2-1.0) 10/31/17 03:50 AST 38 Units/L (15-37) H 10/31/17 03:50 ALT 20 Units/L (12-78) 10/31/17 03:50 Alkaline Phosphatase 120 Units/L (46-116) H 10/31/17 03:50 Creatine Kinase 79 Units/L (26-192) 10/30/17 06:55 CK-MB (CK-2) 10.2 ng/mL (0-4.0) H* 10/30/17 06:55 CK/CKMB % Calc 12.9 % (<4) 10/30/17 06:55 Troponin I 1.69 ng/mL (0-1.5) H* 10/30/17 06:55 Total Protein 7.6 g/dL (6.4-8.2) 10/31/17 03:50 Albumin 2.6 g/dL (3.4-5.0) L 10/31/17 03:50 Globulin 5.0 g/dL (2.5-4.5) H 10/31/17 03:50 Albumin/Globulin Ratio 0.5 Ratio (1.1-2.1) L 10/31/17 03:50 Triglycerides 84 mg/dL (0-150) 10/30/17 06:55 Cholesterol 108 mg/dL (0-200) 10/30/17 06:55 LDL Cholesterol, Calc 44 mg/dL (0-100) 10/30/17 06:55 HDL Cholesterol 47 mg/dL (40-60) 10/30/17 06:55 Cholesterol/HDL Ratio 2.3 (0.0-5.0) 10/30/17 06:55 Specimen Type Catherized urine 10/29/17 19:15 Urine Color Yellow (YELLOW) 10/29/17 19:15 Urine Appearance Cloudy (CLEAR) 10/29/17 19:15 Urine pH 5.0 (5.0 - 8.0) 10/29/17 19:15 Ur Specific [place] 1.020 (1.000-1.030) 10/29/17 19:15 Urine Protein 2+ (NEGATIVE) 10/29/17 19:15 Urine Glucose (UA) Negative (NEGATIVE) 10/29/17 19:15 Urine Ketones Negative (NEGATIVE) 10/29/17 19:15 Urine Occult Blood 5+ (NEGATIVE) 10/29/17 19:15 Urine Nitrite Negative (NEGATIVE) 10/29/17 19:15 Urine Bilirubin Negative (NEGATIVE) 10/29/17 19:15 Urine Urobilinogen Normal (NORMAL) 10/29/17 19:15 Ur Leukocyte Esterase 3+ (NEGATIVE) 10/29/17 19:15 Urine RBC Tntc /HPF (NONE SEEN) 10/29/17 19:15 Urine WBC 30-50 /HPF (NONE SEEN) 10/29/17 19:15 Ur Squamous Epith Cells Rare /HPF (NEGATIVE) 10/29/17 19:15 Urine Bacteria 4+ /HPF (NEGATIVE) 10/29/17 19:15 Ur Culture Indicated? Yes/culture set up 10/29/17 19:15 - Plan (1) Acute myocardial infarction Status: Acute Plan: Heparin, Plavix, Telemetry (2) Chronic kidney disease Status: Acute Plan: Monitor BUN/CR/GFR (3) CHF (congestive heart failure) Status: Acute Plan: IV Lasix, CXR (4) UTI (urinary tract infection) Status: Acute Plan: Rocephin IV, UA Culture (5) COPD exacerbation Status: Acute Plan: XOPENEX NEBS, LEVAQUIN
[2017-10-31] MEDS: SOLU-Medrol 125 MG VIAL IVP SCH ×2 (12:54→20:35)
[2017-10-31] MEDS ORDERED: DUONEB 0.5 MG/3 MG NEB SCH (13:00)
[2017-10-31] MEDS: MORPHINE SULFATE INJ 2 MG INJ IVP PRN (20:36)
[2017-10-31] MEDS: ROCEPHIN VIAL 1 GRAM 1 G in NS 100 ML IV + SPIKE MINIBAG* 100 ML IV SCH (20:36)
[2017-10-31] MEDS: XANAX PO SCH (20:37)
[2017-10-31] MEDS: DESVENLAFAXINE SUCCINATE PO SCH (20:41)
[2017-11-01] MEDS ORDERED: NS 500 ML IV 500 ML IV ONE (00:53)
[2017-11-01] MEDS: NORCO 10/325 TAB PO PRN ×2 (04:09→22:34)
[2017-11-01 05:23] LABS: BASOPHILS % (AUTO) 0.1 % (0.2-1.0); HEMATOCRIT 32.2 % (36.0-47.0); HEMOGLOBIN 10.7 g/dL (12.0-16.0); LYMPHOCYTES # (AUTO) 0.6 X10^3/uL (1.3-2.9); LYMPHOCYTES % (AUTO) 19.3 % (21.0-51.0); MEAN CORPUSCULAR HEMOGLOBIN 33.8 pg (27.0-34.0); MEAN CORPUSCULAR HGB CONC 33.3 g/dL (33.0-35.0); MEAN CORPUSCULAR VOLUME 101.4 fL (80.0-100.0); MEAN PLATELET VOLUME 9.2 fL (7.4-11.0); MONOCYTES # (AUTO) 0 x10^3/uL (0.3-0.8); NEUTROPHILS # (AUTO) 2.3 x10^3/uL (2.2-4.8); NEUTROPHILS % (AUTO) 79.6 % (42.0-75.0); PLATELET COUNT 92 X10^3/uL (150.0-450.0); RED BLOOD COUNT 3.18 X10^6/uL (3.5-5.4); RED CELL DISTRIBUTION WIDTH 13.9 % (11.6-16.5); WHITE BLOOD COUNT 2.9 X10^3/uL (3.6-10.0)
[2017-11-01 05:35] LABS: ALBUMIN 2.8 g/dL (3.4-5.0); CALCIUM 8.6 mg/dL (8.5-10.1); CARBON DIOXIDE 34.4 mmol/L (21-32); COR CA(FOR HYPOALB) 9.6 mg/dL (8.5-10.1); CREATININE 1.72 mg/dL (0.55-1.02); TOTAL PROTEIN 8.1 g/dL (6.4-8.2)
[2017-11-01] MEDS: NITRO-BID OINT 2% Multi-Dose tube TD SCH ×2 (06:11→22:41)
--- NOTE | 2017-11-01 06:44 | RAD ---
HISTORY: Follow-up congestive heart failure Study: Chest AP portable Comparison: 10/31/2017 Findings: The heart remains enlarged. Mild pulmonary venous congestion is present. No definite interstitial nathanael ma, alveolar edema, or alveolar infiltrates are identified. The aorta is ectatic and calcified. There is some subsegmental atelectasis in the right lung base. No pleural effusions are identified. The [place] thorax is unremarkable. IMPRESSION: Moderate cardiomegaly with mild pulmonary venous congestion Subsegmental atelectasis right lung base Reported By:
[2017-11-01] MEDS ORDERED: NITRO-BID OINT 2% UD (E.R. USE ONLY) ONE ×2 (06:48→22:40)
[2017-11-01] MEDS: XOPENEX 1.25 MG/3 ML NEBULE NEB SCH ×4 (08:50→20:12)
[2017-11-01] MEDS ORDERED: LEXAPRO ONE (09:17)
[2017-11-01] MEDS: BUTT CREAM (COMPOUND) TOP PRN (09:26)
[2017-11-01] MEDS: PLAVIX PO SCH (09:28)
[2017-11-01] MEDS: LOPRESSOR TAB 25 MG PO SCH ×2 (09:28→22:33)
[2017-11-01] MEDS: MOBIC TAB 15 MG PO SCH (09:29)
[2017-11-01] MEDS: ASPIRIN EC 81 MG PO SCH (09:29)
[2017-11-01] MEDS: NEURONTIN CAP 300 MG PO SCH ×2 (09:29→22:34)
[2017-11-01] MEDS: CLARITIN PO SCH (09:29)
[2017-11-01] MEDS: LEXAPRO PO SCH (09:29)
[2017-11-01] MEDS: SOLU-Medrol 125 MG VIAL IVP SCH ×2 (09:30→22:35)
[2017-11-01] MEDS: PROTONIX INJ 40 MG VIAL IVP SCH ×2 (09:30→22:35)
[2017-11-01] MEDS: MORPHINE SULFATE INJ 2 MG INJ IVP PRN (09:31)
[2017-11-01] MEDS ORDERED: LOPRESSOR TAB 50 MG ONE (09:34)
[2017-11-01] MEDS: CYMBALTA PO SCH (09:50)
[2017-11-01] MEDS ORDERED: INVANZ INJ 1 GM VIAL 1 GM in NS 100 ML IV + SPIKE MINIBAG* 100 ML IV SCH (10:00)
[2017-11-01] MEDS: INVANZ INJ 1 GM VIAL 0.5 GM in NS 50 ML IV 50 ML IV SCH (10:42)
[2017-11-01] MEDS: XANAX PO SCH (22:34)
[2017-11-01] MEDS: DESVENLAFAXINE SUCCINATE PO SCH (22:34)
[2017-11-01] MEDS: LASIX IVP SCH (22:35)
[2017-11-02 06:24] LABS: BASOPHILS % (AUTO) 0.1 % (0.2-1.0); HEMATOCRIT 31.1 % (36.0-47.0); HEMOGLOBIN 10.5 g/dL (12.0-16.0); LYMPHOCYTES # (AUTO) 0.7 X10^3/uL (1.3-2.9); LYMPHOCYTES % (AUTO) 7.9 % (21.0-51.0); MEAN CORPUSCULAR HEMOGLOBIN 34.2 pg (27.0-34.0); MEAN CORPUSCULAR HGB CONC 33.6 g/dL (33.0-35.0); MEAN CORPUSCULAR VOLUME 101.8 fL (80.0-100.0); MEAN PLATELET VOLUME 9.2 fL (7.4-11.0); MONOCYTES # (AUTO) 0.2 x10^3/uL (0.3-0.8); MONOCYTES % (AUTO) 2.6 % (0.0-13.0); NEUTROPHILS # (AUTO) 7.7 x10^3/uL (2.2-4.8); NEUTROPHILS % (AUTO) 89.4 % (42.0-75.0); PLATELET COUNT 117 X10^3/uL (150.0-450.0); RED BLOOD COUNT 3.05 X10^6/uL (3.5-5.4); RED CELL DISTRIBUTION WIDTH 13.7 % (11.6-16.5); WHITE BLOOD COUNT 8.6 X10^3/uL (3.6-10.0)
[2017-11-02] MEDS: NITRO-BID OINT 2% Multi-Dose tube TD SCH ×4 (06:34→21:30)
[2017-11-02 06:39] LABS: ALBUMIN 2.9 g/dL (3.4-5.0); CALCIUM 8.8 mg/dL (8.5-10.1); CARBON DIOXIDE 32.4 mmol/L (21-32); COR CA(FOR HYPOALB) 9.7 mg/dL (8.5-10.1); CREATININE 1.88 mg/dL (0.55-1.02); TOTAL PROTEIN 7.9 g/dL (6.4-8.2)
[2017-11-02] MEDS: XOPENEX 1.25 MG/3 ML NEBULE NEB SCH ×4 (08:20→21:12)
[2017-11-02] MEDS ORDERED: PLAVIX ONE (08:23)
[2017-11-02] MEDS ORDERED: LEXAPRO ONE (08:25)
[2017-11-02] MEDS: ASPIRIN EC 81 MG PO SCH (09:24)
[2017-11-02] MEDS: LOPRESSOR TAB 25 MG PO SCH ×2 (09:25→21:27)
[2017-11-02] MEDS: LEXAPRO PO SCH (09:25)
[2017-11-02] MEDS: LASIX IVP SCH ×2 (09:25→21:22)
[2017-11-02] MEDS: CYMBALTA PO SCH (09:25)
[2017-11-02] MEDS: MOBIC TAB 15 MG PO SCH (09:25)
[2017-11-02] MEDS: PROTONIX INJ 40 MG VIAL IVP SCH ×2 (09:26→21:23)
[2017-11-02] MEDS: NEURONTIN CAP 300 MG PO SCH ×2 (09:26→21:27)
[2017-11-02] MEDS: SOLU-Medrol 125 MG VIAL IVP SCH ×2 (09:27→21:23)
[2017-11-02] MEDS: PLAVIX PO SCH (09:30)
[2017-11-02] MEDS: INVANZ INJ 1 GM VIAL 0.5 GM in NS 50 ML IV 50 ML IV SCH (09:33)
[2017-11-02] MEDS: NORCO 10/325 TAB PO PRN (16:59)
[2017-11-02] MEDS ORDERED: NS 500 ML IV 500 ML IV ONE (19:01)
[2017-11-02] MEDS: XANAX PO SCH (21:26)
[2017-11-02] MEDS: DESVENLAFAXINE SUCCINATE PO SCH (21:27)
[2017-11-02] MEDS ORDERED: NITRO-BID OINT 2% UD (E.R. USE ONLY) ONE (21:29)
[2017-11-02] MEDS: TUSSIONEX PENNKINETIC SUSP PO PRN (21:34)
[2017-11-03] MEDS: MORPHINE SULFATE INJ 2 MG INJ IVP PRN (00:16)
[2017-11-03 05:23] LABS: BASOPHILS % (AUTO) 0.1 % (0.2-1.0); HEMATOCRIT 29.8 % (36.0-47.0); HEMOGLOBIN 10.2 g/dL (12.0-16.0); LYMPHOCYTES # (AUTO) 0.6 X10^3/uL (1.3-2.9); LYMPHOCYTES % (AUTO) 7.6 % (21.0-51.0); MEAN CORPUSCULAR HEMOGLOBIN 34.5 pg (27.0-34.0); MEAN CORPUSCULAR HGB CONC 34.1 g/dL (33.0-35.0); MEAN CORPUSCULAR VOLUME 101.2 fL (80.0-100.0); MONOCYTES # (AUTO) 0.2 x10^3/uL (0.3-0.8); MONOCYTES % (AUTO) 2.6 % (0.0-13.0); NEUTROPHILS # (AUTO) 6.7 x10^3/uL (2.2-4.8); NEUTROPHILS % (AUTO) 89.7 % (42.0-75.0); PLATELET COUNT 108 X10^3/uL (150.0-450.0); RED BLOOD COUNT 2.94 X10^6/uL (3.5-5.4); WHITE BLOOD COUNT 7.5 X10^3/uL (3.6-10.0)
[2017-11-03 05:48] LABS: ALBUMIN 2.7 g/dL (3.4-5.0); CALCIUM 8.5 mg/dL (8.5-10.1); COR CA(FOR HYPOALB) 9.5 mg/dL (8.5-10.1); CREATININE 2.06 mg/dL (0.55-1.02); TOTAL PROTEIN 7.4 g/dL (6.4-8.2)
--- NOTE | 2017-11-03 06:17 | RAD ---
Examination: Portable AP chest History: Dyspnea Comparison reference 11/01/2017 Findings: Continued cardiomegaly with pulmonary vascular distention and suspect infiltrate or atelect asis at the right base. No large pleural effusion or complicating pneumothorax seen. Impression: No significant interval change since 11/01/2017. Reported By:
[2017-11-03] MEDS: NITRO-BID OINT 2% Multi-Dose tube TD SCH ×3 (06:43→23:12)
[2017-11-03] MEDS ORDERED: PLAVIX ONE (08:09)
[2017-11-03] MEDS ORDERED: LEXAPRO ONE (08:10)
[2017-11-03] MEDS ORDERED: Atrovent NEB TX 0.02% ONE ×2 (08:32→19:53)
[2017-11-03] MEDS ORDERED: PULMICORT NEB TX 0.5 MG NEB ONE ×2 (08:32→19:53)
[2017-11-03] MEDS: XOPENEX 1.25 MG/3 ML NEBULE NEB SCH ×4 (08:33→20:05)
[2017-11-03] MEDS: PULMICORT NEB TX 0.5 MG NEB SCH ×2 (08:33→20:05)
[2017-11-03] MEDS: Atrovent NEB TX 0.02% NEB SCH ×2 (08:33→20:05)
[2017-11-03] MEDS: NEURONTIN CAP 300 MG PO SCH ×2 (08:45→20:36)
[2017-11-03] MEDS: ASPIRIN EC 81 MG PO SCH (08:45)
[2017-11-03] MEDS: INVANZ INJ 1 GM VIAL 0.5 GM in NS 50 ML IV 50 ML IV SCH (08:45)
[2017-11-03] MEDS: MOBIC TAB 15 MG PO SCH (08:45)
[2017-11-03] MEDS: LOPRESSOR TAB 25 MG PO SCH ×2 (08:45→20:36)
[2017-11-03] MEDS: SOLU-Medrol 125 MG VIAL IVP SCH (08:45)
[2017-11-03] MEDS: PROTONIX INJ 40 MG VIAL IVP SCH ×2 (08:45→20:36)
[2017-11-03] MEDS: CLARITIN PO SCH (08:45)
[2017-11-03] MEDS: CYMBALTA PO SCH (08:45)
[2017-11-03] MEDS: LEXAPRO PO SCH (08:45)
[2017-11-03] MEDS: PLAVIX PO SCH (08:45)
[2017-11-03] MEDS: LASIX IVP SCH (08:45)
--- NOTE | 2017-11-03 18:00 | PCM.PROG ---
Progress Note - Progress Note for Day of Date of Exam: 11/01/17 - Subjective Subjective: WAS ADMITTED ON 10/29/2017 FOR DYSPNEA, CHF EXACERBATION, AND CHEST PAIN. TODAY, SHE DENIES CHEST PAIN, BUT DOES CONTINUE WITH SHORTNESS OF BREATH AND A NON-PRODUCTIVE COUGH. ON EXAMINATION, BILATERAL LUNGS ARE NOTED WITH SCATTERED WHEEZING THROUGHOUT. HER VITALS TODAY ARE 97.2-84-16-100%-117/ 60. ABNORMAL LAB VALUES INCLUDE THE FOLLOWING: WBC 2.9, RBC 3.18, HGB 10.7, HCT 32.2, SODIUM 127, CHLORIDE 92, CARBON DIOXIDE 34.4, BUN 30, CREATININE 1.72, GLUCOSE 138, ALK PHOS 125, ALBUMIN 2.8, GLOBULIN 5.3. URINE CULTURE REPORTS GROWTH OF E.COLI. IT IS RESISTANT TO THE ROCEPHIN THAT SHE IS CURRENTLY ON. TODAYS CHEST XRAY REVEALS: Moderate cardiomegaly with mild pulmonary venous congestion. Subsegmental atelectasis right lung base. TODAY, WE WILL START TUSSIONEX PRN, TESSALON PERLES TID, AND LASIX 20MG IV BID. WE WILL DISCONTINUE THE ROCEPHIN AND START INVANZ 500MG IV DAILY. OTHERWISE, WE WILL FOLLOW UP WITH AM LABS AND CONTINUE TO MONITOR PATIENT. - Past Medical Family Social History Past Med/Fam/Surg Hx: No changes since H&P Allergies: Allergies aspirin Allergy (Verified 01/30/17 15:42) diphenhydramine [From Benadryl] Allergy (Verified 01/30/17 15:43) lisinopril Allergy (Verified 01/30/17 15:43) zolpidem [From Ambien] Allergy (Verified 01/30/17 15:42) - Review of Systems ROS: No change since H&P - Vital Signs and I&O's Vital Signs: Temperature 97.6 F Pulse Rate [Apical] 86 Pulse Rate 85 Respiratory Rate 17 Blood Pressure [Left Arm] 107/53 Blood Pressure [Right Arm] 101/51 Blood Pressure 91/63 O2 Sat by Pulse Oximetry 98 Intake and Output: Intake & Output 11/01/17 11/02/17 11/03/17 11/04/17 11:59 11:59 11:59 11:59 Intake Total 2283 / 2283 1297 / 1297 350 / 350 440 / 440 Output Total 1175 / 1175 400 / 400 900 / 900 300 / 300 Balance 1108 / 1108 897 / 897 -550 / -550 140 / 140 - Physical Exam Oriented: Normal Eyes: Normal Ear: Normal Nose: Normal Throat: Normal Respiratory: Right, Left, Diminished, Wheezes Cardiovascular: Normal : Normal Auscultation: Bowel Sounds: Normal Palpation: Normal Tenderness: Normal Skin: Normal Musculoskeletal: Motor Deficit (Weak, bedbound) Psychiatric: Normal Mood Description: Calm Affect: Normal Speech Pattern: Clear, Appropriate - Laboratory and Diagnostics Result Diagrams: 11/03/17 04:30 11/03/17 04:30 Labs: 10/29/17 19:15 Urine,Catheterized Urine Culture - Final Escherichia Coli Escherichia Coli#2 Laboratory WBC 7.5 X10^3/uL (3.6-10.0) 11/03/17 04:30 RBC 2.94 X10^6/uL (3.5-5.4) L 11/03/17 04:30 Hgb 10.2 g/dL (12.0-16.0) L 11/03/17 04:30 Hct 29.8 % (36.0-47.0) L 11/03/17 04:30 MCV 101.2 fL (80.0-100.0) H 11/03/17 04:30 MCH 34.5 pg (27.0-34.0) H 11/03/17 04:30 MCHC 34.1 g/dL (33.0-35.0) 11/03/17 04:30 RDW 14.0 % (11.6-16.5) 11/03/17 04:30 Plt Count 108 X10^3/uL (150.0-450.0) L 11/03/17 04:30 MPV 9.0 fL (7.4-11.0) 11/03/17 04:30 Neut % (Auto) 89.7 % (42.0-75.0) H 11/03/17 04:30 Lymph % (Auto) 7.6 % (21.0-51.0) L 11/03/17 04:30 [place] % (Auto) 2.6 % (0.0-13.0) 11/03/17 04:30 Eos % (Auto) 0.0 % (0.9-2.9) L 11/03/17 04:30 Baso % (Auto) 0.1 % (0.2-1.0) L 11/03/17 04:30 Neut # (Auto) 6.7 x10^3/uL (2.2-4.8) H 11/03/17 04:30 Lymph # (Auto) 0.6 X10^3/uL (1.3-2.9) L 11/03/17 04:30 [place] # (Auto) 0.2 x10^3/uL (0.3-0.8) L 11/03/17 04:30 Eos # (Auto) 0.0 x10^3/uL (0.0-0.2) 11/03/17 04:30 Baso # (Auto) 0.0 X10^3/uL (0.0-0.1) 11/03/17 04:30 Absolute Nucleated RBC 0.0 /100WBC 11/03/17 04:30 INR Target Range - 10/29/17 20:58 INR 1.11 (0.8-1.3) 10/29/17 20:58 APTT 64.9 SECONDS (22.9-36.5) H 11/01/17 04:57 PTT Comment - 11/01/17 04:57 Sodium 127 mmol/L (136-145) L 11/03/17 04:30 Corrected Sodium 127 mmol/L (136-145) L 11/03/17 04:30 Potassium 4.9 mmol/L (3.5-5.1) 11/03/17 04:30 Chloride 92 mmol/L (98-107) L 11/03/17 04:30 Carbon Dioxide 29.0 mmol/L (21-32) 11/03/17 04:30 BUN 44 mg/dL (7-18) H 11/03/17 04:30 Creatinine 2.06 mg/dL (0.55-1.02) H 11/03/17 04:30 Est GFR (MDRD) Af Amer 30 (>60) L 11/03/17 04:30 Est GFR (MDRD) Non-Af 25 (>60) L 11/03/17 04:30 Glucose 112 mg/dL (65-99) H 11/03/17 04:30 POC Glucose (mg/dL) 88 mg/dL (65-99) 10/30/17 11:01 Calcium 8.5 mg/dL (8.5-10.1) 11/03/17 04:30 Corrected Calcium 9.5 mg/dL (8.5-10.1) 11/03/17 04:30 Magnesium 2.0 mg/dL (1.7-2.9) 10/29/17 19:03 Total Bilirubin 0.40 mg/dL (0.2-1.0) 11/03/17 04:30 AST 29 Units/L (15-37) 11/03/17 04:30 ALT 27 Units/L (12-78) 11/03/17 04:30 Alkaline Phosphatase 108 Units/L (46-116) 11/03/17 04:30 Creatine Kinase 79 Units/L (26-192) 10/30/17 06:55 CK-MB (CK-2) 10.2 ng/mL (0-4.0) H* 10/30/17 06:55 CK/CKMB % Calc 12.9 % (<4) 10/30/17 06:55 Troponin I 1.69 ng/mL (0-1.5) H* 10/30/17 06:55 Total Protein 7.4 g/dL (6.4-8.2) 11/03/17 04:30 Albumin 2.7 g/dL (3.4-5.0) L 11/03/17 04:30 Globulin 4.7 g/dL (2.5-4.5) H 11/03/17 04:30 Albumin/Globulin Ratio 0.6 Ratio (1.1-2.1) L 11/03/17 04:30 Triglycerides 84 mg/dL (0-150) 10/30/17 06:55 Cholesterol 108 mg/dL (0-200) 10/30/17 06:55 LDL Cholesterol, Calc 44 mg/dL (0-100) 10/30/17 06:55 HDL Cholesterol 47 mg/dL (40-60) 10/30/17 06:55 Cholesterol/HDL Ratio 2.3 (0.0-5.0) 10/30/17 06:55 Specimen Type Catherized urine 10/29/17 19:15 Urine Color Yellow (YELLOW) 10/29/17 19:15 Urine Appearance Cloudy (CLEAR) 10/29/17 19:15 Urine pH 5.0 (5.0 - 8.0) 10/29/17 19:15 Ur Specific [place] 1.020 (1.000-1.030) 10/29/17 19:15 Urine Protein 2+ (NEGATIVE) 10/29/17 19:15 Urine Glucose (UA) Negative (NEGATIVE) 10/29/17 19:15 Urine Ketones Negative (NEGATIVE) 10/29/17 19:15 Urine Occult Blood 5+ (NEGATIVE) 10/29/17 19:15 Urine Nitrite Negative (NEGATIVE) 10/29/17 19:15 Urine Bilirubin Negative (NEGATIVE) 10/29/17 19:15 Urine Urobilinogen Normal (NORMAL) 10/29/17 19:15 Ur Leukocyte Esterase 3+ (NEGATIVE) 10/29/17 19:15 Urine RBC Tntc /HPF (NONE SEEN) 10/29/17 19:15 Urine WBC 30-50 /HPF (NONE SEEN) 10/29/17 19:15 Ur Squamous Epith Cells Rare /HPF (NEGATIVE) 10/29/17 19:15 Urine Bacteria 4+ /HPF (NEGATIVE) 10/29/17 19:15 Ur Culture Indicated? Yes/culture set up 10/29/17 19:15
--- NOTE | 2017-11-03 18:56 | PCM.PROG ---
Progress Note - Progress Note for Day of Date of Exam: 11/02/17 - Subjective Subjective: WAS ADMITTED ON 10/29/2017 FOR DYSPNEA, CHF EXACERBATION, AND CHEST PAIN. TODAY, SHE CONTINUES WITH SHORTNESS OF BREATH AND A NON- PRODUCTIVE COUGH. ON EXAMINATION, BILATERAL LUNGS ARE NOTED WITH SCATTERED WHEEZING AND RHONCHI THROUGHOUT. HER VITALS TODAY ARE 97.6-85-19-100%NC-138/87. ABNORMAL LAB VALUES INCLUDE THE FOLLOWING: RBC 3.05, HGB 10.5, HCT 31.1, SODIUM 128, POTASSIUM 5.3, CHLORIDE 92, CARBON DIOXIDE 32.4, BUN 35, CREATININE 1.88, GLUCOSE 119, ALK PHOS 123, ALBUMIN 2.9. WE WILL CONTINUE WITH IV ANTIBIOTICS, RESPIRATORY TREATMENTS, AND CURRENT PLAN OF CARE. OTHERWISE, WE WILL FOLLOW UP WITH AM LABS AND CONTINUE TO MONITOR PATIENT. - Past Medical Family Social History Past Med/Fam/Surg Hx: No changes since H&P Allergies: Allergies aspirin Allergy (Verified 01/30/17 15:42) diphenhydramine [From Benadryl] Allergy (Verified 01/30/17 15:43) lisinopril Allergy (Verified 01/30/17 15:43) zolpidem [From Ambien] Allergy (Verified 01/30/17 15:42) - Review of Systems ROS: No change since H&P - Vital Signs and I&O's Vital Signs: Temperature 97.6 F Pulse Rate [Apical] 88 Pulse Rate 85 Respiratory Rate 26 Blood Pressure [Left Arm] 124/65 Blood Pressure [Right Arm] 101/51 Blood Pressure 91/63 O2 Sat by Pulse Oximetry 99 Intake and Output: Intake & Output 11/01/17 11/02/17 11/03/17 11/04/17 11:59 11:59 11:59 11:59 Intake Total 2283 / 2283 1297 / 1297 350 / 350 440 / 440 Output Total 1175 / 1175 400 / 400 900 / 900 300 / 300 Balance 1108 / 1108 897 / 897 -550 / -550 140 / 140 - Physical Exam Oriented: Normal Eyes: Normal Ear: Normal Nose: Normal Throat: Normal Respiratory: Right, Left, Diminished, Wheezes Cardiovascular: Normal : Normal Auscultation: Bowel Sounds: Normal Tenderness: Normal Skin: Normal Musculoskeletal: Motor Deficit (Weak, bedbound) Psychiatric: Normal Mood Description: Calm Affect: Normal Speech Pattern: Clear, Appropriate - Laboratory and Diagnostics Result Diagrams: 11/03/17 04:30 11/03/17 04:30 Labs: 10/29/17 19:15 Urine,Catheterized Urine Culture - Final Escherichia Coli Escherichia Coli#2 Laboratory WBC 7.5 X10^3/uL (3.6-10.0) 11/03/17 04:30 RBC 2.94 X10^6/uL (3.5-5.4) L 11/03/17 04:30 Hgb 10.2 g/dL (12.0-16.0) L 11/03/17 04:30 Hct 29.8 % (36.0-47.0) L 11/03/17 04:30 MCV 101.2 fL (80.0-100.0) H 11/03/17 04:30 MCH 34.5 pg (27.0-34.0) H 11/03/17 04:30 MCHC 34.1 g/dL (33.0-35.0) 11/03/17 04:30 RDW 14.0 % (11.6-16.5) 11/03/17 04:30 Plt Count 108 X10^3/uL (150.0-450.0) L 11/03/17 04:30 MPV 9.0 fL (7.4-11.0) 11/03/17 04:30 Neut % (Auto) 89.7 % (42.0-75.0) H 11/03/17 04:30 Lymph % (Auto) 7.6 % (21.0-51.0) L 11/03/17 04:30 [place] % (Auto) 2.6 % (0.0-13.0) 11/03/17 04:30 Eos % (Auto) 0.0 % (0.9-2.9) L 11/03/17 04:30 Baso % (Auto) 0.1 % (0.2-1.0) L 11/03/17 04:30 Neut # (Auto) 6.7 x10^3/uL (2.2-4.8) H 11/03/17 04:30 Lymph # (Auto) 0.6 X10^3/uL (1.3-2.9) L 11/03/17 04:30 [place] # (Auto) 0.2 x10^3/uL (0.3-0.8) L 11/03/17 04:30 Eos # (Auto) 0.0 x10^3/uL (0.0-0.2) 11/03/17 04:30 Baso # (Auto) 0.0 X10^3/uL (0.0-0.1) 11/03/17 04:30 Absolute Nucleated RBC 0.0 /100WBC 11/03/17 04:30 INR Target Range - 10/29/17 20:58 INR 1.11 (0.8-1.3) 10/29/17 20:58 APTT 64.9 SECONDS (22.9-36.5) H 11/01/17 04:57 PTT Comment - 11/01/17 04:57 Sodium 127 mmol/L (136-145) L 11/03/17 04:30 Corrected Sodium 127 mmol/L (136-145) L 11/03/17 04:30 Potassium 4.9 mmol/L (3.5-5.1) 11/03/17 04:30 Chloride 92 mmol/L (98-107) L 11/03/17 04:30 Carbon Dioxide 29.0 mmol/L (21-32) 11/03/17 04:30 BUN 44 mg/dL (7-18) H 11/03/17 04:30 Creatinine 2.06 mg/dL (0.55-1.02) H 11/03/17 04:30 Est GFR (MDRD) Af Amer 30 (>60) L 11/03/17 04:30 Est GFR (MDRD) Non-Af 25 (>60) L 11/03/17 04:30 Glucose 112 mg/dL (65-99) H 11/03/17 04:30 POC Glucose (mg/dL) 88 mg/dL (65-99) 10/30/17 11:01 Calcium 8.5 mg/dL (8.5-10.1) 11/03/17 04:30 Corrected Calcium 9.5 mg/dL (8.5-10.1) 11/03/17 04:30 Magnesium 2.0 mg/dL (1.7-2.9) 10/29/17 19:03 Total Bilirubin 0.40 mg/dL (0.2-1.0) 11/03/17 04:30 AST 29 Units/L (15-37) 11/03/17 04:30 ALT 27 Units/L (12-78) 11/03/17 04:30 Alkaline Phosphatase 108 Units/L (46-116) 11/03/17 04:30 Creatine Kinase 79 Units/L (26-192) 10/30/17 06:55 CK-MB (CK-2) 10.2 ng/mL (0-4.0) H* 10/30/17 06:55 CK/CKMB % Calc 12.9 % (<4) 10/30/17 06:55 Troponin I 1.69 ng/mL (0-1.5) H* 10/30/17 06:55 Total Protein 7.4 g/dL (6.4-8.2) 11/03/17 04:30 Albumin 2.7 g/dL (3.4-5.0) L 11/03/17 04:30 Globulin 4.7 g/dL (2.5-4.5) H 11/03/17 04:30 Albumin/Globulin Ratio 0.6 Ratio (1.1-2.1) L 11/03/17 04:30 Triglycerides 84 mg/dL (0-150) 10/30/17 06:55 Cholesterol 108 mg/dL (0-200) 10/30/17 06:55 LDL Cholesterol, Calc 44 mg/dL (0-100) 10/30/17 06:55 HDL Cholesterol 47 mg/dL (40-60) 10/30/17 06:55 Cholesterol/HDL Ratio 2.3 (0.0-5.0) 10/30/17 06:55 Specimen Type Catherized urine 10/29/17 19:15 Urine Color Yellow (YELLOW) 10/29/17 19:15 Urine Appearance Cloudy (CLEAR) 10/29/17 19:15 Urine pH 5.0 (5.0 - 8.0) 10/29/17 19:15 Ur Specific [place] 1.020 (1.000-1.030) 10/29/17 19:15 Urine Protein 2+ (NEGATIVE) 10/29/17 19:15 Urine Glucose (UA) Negative (NEGATIVE) 10/29/17 19:15 Urine Ketones Negative (NEGATIVE) 10/29/17 19:15 Urine Occult Blood 5+ (NEGATIVE) 10/29/17 19:15 Urine Nitrite Negative (NEGATIVE) 10/29/17 19:15 Urine Bilirubin Negative (NEGATIVE) 10/29/17 19:15 Urine Urobilinogen Normal (NORMAL) 10/29/17 19:15 Ur Leukocyte Esterase 3+ (NEGATIVE) 10/29/17 19:15 Urine RBC Tntc /HPF (NONE SEEN) 10/29/17 19:15 Urine WBC 30-50 /HPF (NONE SEEN) 10/29/17 19:15 Ur Squamous Epith Cells Rare /HPF (NEGATIVE) 10/29/17 19:15 Urine Bacteria 4+ /HPF (NEGATIVE) 10/29/17 19:15 Ur Culture Indicated? Yes/culture set up 10/29/17 19:15
[2017-11-03] MEDS ORDERED: XOPENEX 1.25 MG/3 ML NEBULE NEB ONE (19:52)
[2017-11-03] MEDS ORDERED: NITRO-BID OINT 2% UD (E.R. USE ONLY) ONE (20:23)
[2017-11-03] MEDS: NORCO 10/325 TAB PO PRN (20:36)
[2017-11-03] MEDS: TUSSIONEX PENNKINETIC SUSP PO PRN (20:36)
[2017-11-03] MEDS: XANAX PO SCH (20:36)
[2017-11-03] MEDS: DESVENLAFAXINE SUCCINATE PO SCH (20:37)
--- NOTE | 2017-11-04 00:02 | PCM.PROG ---
Progress Note - Progress Note for Day of Date of Exam: 11/03/17 - Subjective Subjective: WAS ADMITTED ON 10/29/2017 FOR DYSPNEA, CHF EXACERBATION, AND CHEST PAIN. TODAY, SHE CONTINUES WITH SHORTNESS OF BREATH AND A NON- PRODUCTIVE COUGH. ON EXAMINATION, BILATERAL LUNGS ARE NOTED WITH SCATTERED WHEEZING AND RHONCHI THROUGHOUT. HER VITALS TODAY ARE 97.8-81-17-100%NC-112/62. ABNORMAL LAB VALUES INCLUDE THE FOLLOWING: RBC 2.94, HGB 10.2, HCT 29.8, SODIUM 127, CHLORIDE 92, BUN 44, CREATININE 2.06, GLUCOSE 112, ALBUMIN 2.7, GLOBULIN 4.7. TODAYS CHEST XRAY REVEALS: Continued cardiomegaly with pulmonary vascular distention and suspect infiltrate or atelectasis at the right base. No large pleural effusion or complicating pneumothorax seen. TODAY, WE WILL CONTINUE WITH IV ANTIBIOTICS, RESPIRATORY TREATMENTS. WE WILL SALINE LOCK IV FLUIDS AND HOLD LASIX DUE TO ELEVATED BUN/CREATININE. WE WILL START PULMICORT AND ATROVENT NEB TREATMENTS. OTHERWISE, WE WILL FOLLOW UP WITH AM LABS AND CONTINUE TO MONITOR PATIENT. - Past Medical Family Social History Past Med/Fam/Surg Hx: No changes since H&P Allergies: Allergies aspirin Allergy (Verified 01/30/17 15:42) diphenhydramine [From Benadryl] Allergy (Verified 01/30/17 15:43) lisinopril Allergy (Verified 01/30/17 15:43) zolpidem [From Ambien] Allergy (Verified 01/30/17 15:42) - Review of Systems ROS: No change since H&P - Vital Signs and I&O's Vital Signs: Temperature 96.4 F Pulse Rate [Apical] 79 Pulse Rate 80 Respiratory Rate 14 Blood Pressure [Left Arm] 121/58 Blood Pressure [Right Arm] 101/51 Blood Pressure 91/63 O2 Sat by Pulse Oximetry 78 Intake and Output: Intake & Output 11/01/17 11/02/17 11/03/17 11/04/17 11:59 11:59 11:59 11:59 Intake Total 2283 / 2283 1297 / 1297 350 / 350 590 / 590 Output Total 1175 / 1175 400 / 400 900 / 900 500 / 500 Balance 1108 / 1108 897 / 897 -550 / -550 90 / 90 - Physical Exam Oriented: Normal Eyes: Normal Ear: Normal Nose: Normal Throat: Normal Respiratory: Right, Left, Diminished, Wheezes Cardiovascular: Normal : Normal Auscultation: Bowel Sounds: Normal Palpation: Normal Tenderness: Normal Skin: Normal Musculoskeletal: Motor Deficit (Weak, bedbound) Psychiatric: Normal Mood Description: Calm Affect: Normal Speech Pattern: Clear, Appropriate - Laboratory and Diagnostics Result Diagrams: 11/03/17 04:30 11/03/17 04:30 Labs: 10/29/17 19:15 Urine,Catheterized Urine Culture - Final Escherichia Coli Escherichia Coli#2 Laboratory WBC 7.5 X10^3/uL (3.6-10.0) 11/03/17 04:30 RBC 2.94 X10^6/uL (3.5-5.4) L 11/03/17 04:30 Hgb 10.2 g/dL (12.0-16.0) L 11/03/17 04:30 Hct 29.8 % (36.0-47.0) L 11/03/17 04:30 MCV 101.2 fL (80.0-100.0) H 11/03/17 04:30 MCH 34.5 pg (27.0-34.0) H 11/03/17 04:30 MCHC 34.1 g/dL (33.0-35.0) 11/03/17 04:30 RDW 14.0 % (11.6-16.5) 11/03/17 04:30 Plt Count 108 X10^3/uL (150.0-450.0) L 11/03/17 04:30 MPV 9.0 fL (7.4-11.0) 11/03/17 04:30 Neut % (Auto) 89.7 % (42.0-75.0) H 11/03/17 04:30 Lymph % (Auto) 7.6 % (21.0-51.0) L 11/03/17 04:30 [place] % (Auto) 2.6 % (0.0-13.0) 11/03/17 04:30 Eos % (Auto) 0.0 % (0.9-2.9) L 11/03/17 04:30 Baso % (Auto) 0.1 % (0.2-1.0) L 11/03/17 04:30 Neut # (Auto) 6.7 x10^3/uL (2.2-4.8) H 11/03/17 04:30 Lymph # (Auto) 0.6 X10^3/uL (1.3-2.9) L 11/03/17 04:30 [place] # (Auto) 0.2 x10^3/uL (0.3-0.8) L 11/03/17 04:30 Eos # (Auto) 0.0 x10^3/uL (0.0-0.2) 11/03/17 04:30 Baso # (Auto) 0.0 X10^3/uL (0.0-0.1) 11/03/17 04:30 Absolute Nucleated RBC 0.0 /100WBC 11/03/17 04:30 INR Target Range - 10/29/17 20:58 INR 1.11 (0.8-1.3) 10/29/17 20:58 APTT 64.9 SECONDS (22.9-36.5) H 11/01/17 04:57 PTT Comment - 11/01/17 04:57 Sodium 127 mmol/L (136-145) L 11/03/17 04:30 Corrected Sodium 127 mmol/L (136-145) L 11/03/17 04:30 Potassium 4.9 mmol/L (3.5-5.1) 11/03/17 04:30 Chloride 92 mmol/L (98-107) L 11/03/17 04:30 Carbon Dioxide 29.0 mmol/L (21-32) 11/03/17 04:30 BUN 44 mg/dL (7-18) H 11/03/17 04:30 Creatinine 2.06 mg/dL (0.55-1.02) H 11/03/17 04:30 Est GFR (MDRD) Af Amer 30 (>60) L 11/03/17 04:30 Est GFR (MDRD) Non-Af 25 (>60) L 11/03/17 04:30 Glucose 112 mg/dL (65-99) H 11/03/17 04:30 POC Glucose (mg/dL) 88 mg/dL (65-99) 10/30/17 11:01 Calcium 8.5 mg/dL (8.5-10.1) 11/03/17 04:30 Corrected Calcium 9.5 mg/dL (8.5-10.1) 11/03/17 04:30 Magnesium 2.0 mg/dL (1.7-2.9) 10/29/17 19:03 Total Bilirubin 0.40 mg/dL (0.2-1.0) 11/03/17 04:30 AST 29 Units/L (15-37) 11/03/17 04:30 ALT 27 Units/L (12-78) 11/03/17 04:30 Alkaline Phosphatase 108 Units/L (46-116) 11/03/17 04:30 Creatine Kinase 79 Units/L (26-192) 10/30/17 06:55 CK-MB (CK-2) 10.2 ng/mL (0-4.0) H* 10/30/17 06:55 CK/CKMB % Calc 12.9 % (<4) 10/30/17 06:55 Troponin I 1.69 ng/mL (0-1.5) H* 10/30/17 06:55 Total Protein 7.4 g/dL (6.4-8.2) 11/03/17 04:30 Albumin 2.7 g/dL (3.4-5.0) L 11/03/17 04:30 Globulin 4.7 g/dL (2.5-4.5) H 11/03/17 04:30 Albumin/Globulin Ratio 0.6 Ratio (1.1-2.1) L 11/03/17 04:30 Triglycerides 84 mg/dL (0-150) 10/30/17 06:55 Cholesterol 108 mg/dL (0-200) 10/30/17 06:55 LDL Cholesterol, Calc 44 mg/dL (0-100) 10/30/17 06:55 HDL Cholesterol 47 mg/dL (40-60) 10/30/17 06:55 Cholesterol/HDL Ratio 2.3 (0.0-5.0) 10/30/17 06:55 Specimen Type Catherized urine 10/29/17 19:15 Urine Color Yellow (YELLOW) 10/29/17 19:15 Urine Appearance Cloudy (CLEAR) 10/29/17 19:15 Urine pH 5.0 (5.0 - 8.0) 10/29/17 19:15 Ur Specific [place] 1.020 (1.000-1.030) 10/29/17 19:15 Urine Protein 2+ (NEGATIVE) 10/29/17 19:15 Urine Glucose (UA) Negative (NEGATIVE) 10/29/17 19:15 Urine Ketones Negative (NEGATIVE) 10/29/17 19:15 Urine Occult Blood 5+ (NEGATIVE) 10/29/17 19:15 Urine Nitrite Negative (NEGATIVE) 10/29/17 19:15 Urine Bilirubin Negative (NEGATIVE) 10/29/17 19:15 Urine Urobilinogen Normal (NORMAL) 10/29/17 19:15 Ur Leukocyte Esterase 3+ (NEGATIVE) 10/29/17 19:15 Urine RBC Tntc /HPF (NONE SEEN) 10/29/17 19:15 Urine WBC 30-50 /HPF (NONE SEEN) 10/29/17 19:15 Ur Squamous Epith Cells Rare /HPF (NEGATIVE) 10/29/17 19:15 Urine Bacteria 4+ /HPF (NEGATIVE) 10/29/17 19:15 Ur Culture Indicated? Yes/culture set up 10/29/17 19:15 - Plan (1) CHF (congestive heart failure) Status: Acute Qualifiers: Heart failure type: unspecified Heart failure chronicity: acute on chronic Qualified Code(s): I50.9 - Heart failure, unspecified Plan: RESPIRATORY TREATMENTS, SUPPLEMENTAL OXYGEN, MONITOR LABS AND CHEST XRAY (2) COPD exacerbation Status: Acute Plan: XOPENEX, PULMICORT, ATROVENT NEB TX, LEVAQUIN IV, CONTINUE TO MONITOR
[2017-11-04 06:18] LABS: BASOPHILS % (AUTO) 0.5 % (0.2-1.0); HEMATOCRIT 33.8 % (36.0-47.0); HEMOGLOBIN 11.3 g/dL (12.0-16.0); LYMPHOCYTES # (AUTO) 0.8 X10^3/uL (1.3-2.9); MEAN CORPUSCULAR HEMOGLOBIN 34.3 pg (27.0-34.0); MEAN CORPUSCULAR HGB CONC 33.4 g/dL (33.0-35.0); MEAN CORPUSCULAR VOLUME 102.5 fL (80.0-100.0); MEAN PLATELET VOLUME 8.8 fL (7.4-11.0); MONOCYTES # (AUTO) 0.7 x10^3/uL (0.3-0.8); MONOCYTES % (AUTO) 7.8 % (0.0-13.0); NEUTROPHILS # (AUTO) 7.3 x10^3/uL (2.2-4.8); NEUTROPHILS % (AUTO) 82.7 % (42.0-75.0); PLATELET COUNT 114 X10^3/uL (150.0-450.0); RED CELL DISTRIBUTION WIDTH 14.6 % (11.6-16.5); WHITE BLOOD COUNT 8.9 X10^3/uL (3.6-10.0)
--- NOTE | 2017-11-04 06:18 | RAD ---
Examination: Portable AP chest History: SOB CHF Comparison reference 11/03/2017 Findings: Stable cardiomegaly and mediastinal widening secondary to aortic dilatation. Ill-defined in filtrates are essentially unchanged. No complicating pleural fluid or pneumothorax is seen. Impression: No change. Reported By:
[2017-11-04] MEDS: NITRO-BID OINT 2% Multi-Dose tube TD SCH ×3 (06:38→22:23)
[2017-11-04 07:15] LABS: B-TYPE NATRIURETIC PEPTIDE 1580 pg/mL (0-79)
[2017-11-04 07:19] LABS: ALANINE AMINOTRANSFERASE 28 Units/L (12-78); ALBUMIN 2.9 g/dL (3.4-5.0); ALKALINE PHOSPHATASE 113 Units/L (46-116); ASPARTATE AMINO TRANSFERASE 39 Units/L (15-37); BLOOD UREA NITROGEN 51 mg/dL (7-18); CALCIUM 8.5 mg/dL (8.5-10.1); CARBON DIOXIDE 28.8 mmol/L (21-32); CHLORIDE 90 mmol/L (98-107); COR CA(FOR HYPOALB) 9.4 mg/dL (8.5-10.1); CREATININE 2.09 mg/dL (0.55-1.02); TOTAL PROTEIN 7.7 g/dL (6.4-8.2); eGFR NON BLACK RACES 24 (>60)
[2017-11-04 07:21] LABS: SODIUM 125 mmol/L (136-145)
[2017-11-04] MEDS ORDERED: PLAVIX ONE (07:35)
[2017-11-04] MEDS ORDERED: LEXAPRO ONE (07:36)
[2017-11-04] MEDS: XOPENEX 1.25 MG/3 ML NEBULE NEB SCH ×4 (08:48→21:07)
[2017-11-04] MEDS: Atrovent NEB TX 0.02% NEB SCH ×2 (08:48→21:07)
[2017-11-04] MEDS: PULMICORT NEB TX 0.5 MG NEB SCH ×2 (08:49→21:07)
[2017-11-04] MEDS: CYMBALTA PO SCH (09:00)
[2017-11-04] MEDS: ASPIRIN EC 81 MG PO SCH (09:00)
[2017-11-04] MEDS: INVANZ INJ 1 GM VIAL 0.5 GM in NS 50 ML IV 50 ML IV SCH (09:14)
[2017-11-04] MEDS: LOPRESSOR TAB 25 MG PO SCH ×2 (09:15→20:35)
[2017-11-04] MEDS: NEURONTIN CAP 300 MG PO SCH ×2 (09:15→20:34)
[2017-11-04] MEDS: LEXAPRO PO SCH (09:15)
[2017-11-04] MEDS: MOBIC TAB 15 MG PO SCH (09:15)
[2017-11-04] MEDS: PROTONIX INJ 40 MG VIAL IVP SCH ×2 (09:15→20:34)
[2017-11-04] MEDS: PLAVIX PO SCH (09:15)
[2017-11-04] MEDS: TUSSIONEX PENNKINETIC SUSP PO PRN (09:16)
[2017-11-04] MEDS: LEVAQUIN PREMIX IV 250 MG 250 MG/50 ML BAG IV SCH (10:41)
[2017-11-04] MEDS ORDERED: DIFLUCAN PO SCH (11:00)
[2017-11-04] MEDS ORDERED: DIFLUCAN 100 MG IV (MIX by PHARMACY)* 100 MG/50 ML BAG IV SCH (11:00)
[2017-11-04] MEDS: DIFLUCAN PO SCH (11:00)
--- NOTE | 2017-11-04 13:44 | PCM.PROG ---
Progress Note - Progress Note for Day of Date of Exam: 11/04/17 - Subjective Subjective: WAS ADMITTED ON 10/29/2017 FOR DYSPNEA, CHF EXACERBATION, AND CHEST PAIN. SHE IS NOTED WITH INCREASED COUGH AND SHORTNESS OF BREATH TODAY. ON EXAMINATION, BILATERAL LUNGS CONTINUE WITH SCATTERED WHEEZING AND RHONCHI THROUGHOUT. HER VITALS TODAY ARE 98.5-80-13-100%-107/68. ABNORMAL LAB VALUES INCLUDE THE FOLLOWING: RBC 3.30, HGB 11.3, HCT 33.8, SODIUM 125, POTASSIUM 5.5, CHLORIDE 90, BUN 51, CREATININE 2.09, AST 39, BNP 1580, ALBUMIN 2.9, GLOBULIN 4.8. TODAYS CHEST XRAY REVEALS: Stable cardiomegaly and mediastinal widening secondary to aortic dilatation. Ill-defined infiltrates are essentially unchanged. No complicating pleural fluid or pneumothorax is seen. SHE CONTINUES TO RECEIVE IV ANTIBIOTIC AND RESPIRATORY TREATMENTS. TODAY, WE WILL START LEVAQUIN 250MG IV DAILY AND DIFLUCAN 100MG IV DAILY. WE WILL ALSO OBTAIN AN ECHOCARDIOGRAM. OTHERWISE, WE WILL FOLLOW UP WITH AM LABS AND CONTINUE TO MONITOR PATIENT. - Past Medical Family Social History Past Med/Fam/Surg Hx: No changes since H&P Allergies: Allergies aspirin Allergy (Verified 01/30/17 15:42) diphenhydramine [From Benadryl] Allergy (Verified 01/30/17 15:43) lisinopril Allergy (Verified 01/30/17 15:43) zolpidem [From Ambien] Allergy (Verified 01/30/17 15:42) - Review of Systems ROS: No change since H&P - Vital Signs and I&O's Vital Signs: Temperature 98.5 F Pulse Rate [Apical] 84 Pulse Rate 84 Respiratory Rate 12 Blood Pressure [Left Arm] 113/56 Blood Pressure [Right Arm] 101/51 Blood Pressure 91/63 O2 Sat by Pulse Oximetry 100 Intake and Output: Intake & Output 11/02/17 11/03/17 11/04/17 11/05/17 11:59 11:59 11:59 11:59 Intake Total 1297 / 1297 350 / 350 890 / 890 Output Total 400 / 400 900 / 900 600 / 600 Balance 897 / 897 -550 / -550 290 / 290 - Physical Exam Oriented: Normal Eyes: Normal Ear: Normal Nose: Normal Throat: Normal Respiratory: Right, Left, Diminished, Wheezes Cardiovascular: Normal : Normal Auscultation: Bowel Sounds: Normal Tenderness: Normal Skin: Normal Musculoskeletal: Motor Deficit (Weak, bedbound) Psychiatric: Normal Mood Description: Calm Affect: Normal Speech Pattern: Clear, Appropriate - Laboratory and Diagnostics Result Diagrams: 11/04/17 05:15 11/04/17 05:15 Labs: 10/29/17 19:15 Urine,Catheterized Urine Culture - Final Escherichia Coli Escherichia Coli#2 Laboratory WBC 8.9 X10^3/uL (3.6-10.0) 11/04/17 05:15 RBC 3.30 X10^6/uL (3.5-5.4) L 11/04/17 05:15 Hgb 11.3 g/dL (12.0-16.0) L 11/04/17 05:15 Hct 33.8 % (36.0-47.0) L 11/04/17 05:15 MCV 102.5 fL (80.0-100.0) H 11/04/17 05:15 MCH 34.3 pg (27.0-34.0) H 11/04/17 05:15 MCHC 33.4 g/dL (33.0-35.0) 11/04/17 05:15 RDW 14.6 % (11.6-16.5) 11/04/17 05:15 Plt Count 114 X10^3/uL (150.0-450.0) L 11/04/17 05:15 MPV 8.8 fL (7.4-11.0) 11/04/17 05:15 Neut % (Auto) 82.7 % (42.0-75.0) H 11/04/17 05:15 Lymph % (Auto) 9.0 % (21.0-51.0) L 11/04/17 05:15 [place] % (Auto) 7.8 % (0.0-13.0) 11/04/17 05:15 Eos % (Auto) 0.0 % (0.9-2.9) L 11/04/17 05:15 Baso % (Auto) 0.5 % (0.2-1.0) 11/04/17 05:15 Neut # (Auto) 7.3 x10^3/uL (2.2-4.8) H 11/04/17 05:15 Lymph # (Auto) 0.8 X10^3/uL (1.3-2.9) L 11/04/17 05:15 [place] # (Auto) 0.7 x10^3/uL (0.3-0.8) 11/04/17 05:15 Eos # (Auto) 0.0 x10^3/uL (0.0-0.2) 11/04/17 05:15 Baso # (Auto) 0.0 X10^3/uL (0.0-0.1) 11/04/17 05:15 Absolute Nucleated RBC 0.0 /100WBC 11/04/17 05:15 INR Target Range - 10/29/17 20:58 INR 1.11 (0.8-1.3) 10/29/17 20:58 APTT 64.9 SECONDS (22.9-36.5) H 11/01/17 04:57 PTT Comment - 11/01/17 04:57 Sodium 125 mmol/L (136-145) L* 11/04/17 05:15 Corrected Sodium TNP 11/04/17 05:15 Potassium 5.5 mmol/L (3.5-5.1) H 11/04/17 05:15 Chloride 90 mmol/L (98-107) L 11/04/17 05:15 Carbon Dioxide 28.8 mmol/L (21-32) 11/04/17 05:15 BUN 51 mg/dL (7-18) H 11/04/17 05:15 Creatinine 2.09 mg/dL (0.55-1.02) H 11/04/17 05:15 Est GFR (MDRD) Af Amer 29 (>60) L 11/04/17 05:15 Est GFR (MDRD) Non-Af 24 (>60) L 11/04/17 05:15 Glucose 90 mg/dL (65-99) 11/04/17 05:15 POC Glucose (mg/dL) 88 mg/dL (65-99) 10/30/17 11:01 Calcium 8.5 mg/dL (8.5-10.1) 11/04/17 05:15 Corrected Calcium 9.4 mg/dL (8.5-10.1) 11/04/17 05:15 Magnesium 2.0 mg/dL (1.7-2.9) 10/29/17 19:03 Total Bilirubin 0.50 mg/dL (0.2-1.0) 11/04/17 05:15 AST 39 Units/L (15-37) H 11/04/17 05:15 ALT 28 Units/L (12-78) 11/04/17 05:15 Alkaline Phosphatase 113 Units/L (46-116) 11/04/17 05:15 Creatine Kinase 79 Units/L (26-192) 10/30/17 06:55 CK-MB (CK-2) 10.2 ng/mL (0-4.0) H* 10/30/17 06:55 CK/CKMB % Calc 12.9 % (<4) 10/30/17 06:55 Troponin I 1.69 ng/mL (0-1.5) H* 10/30/17 06:55 B-Natriuretic Peptide 1580 pg/mL (0-79) H* 11/04/17 05:15 Total Protein 7.7 g/dL (6.4-8.2) 11/04/17 05:15 Albumin 2.9 g/dL (3.4-5.0) L 11/04/17 05:15 Globulin 4.8 g/dL (2.5-4.5) H 11/04/17 05:15 Albumin/Globulin Ratio 0.6 Ratio (1.1-2.1) L 11/04/17 05:15 Triglycerides 84 mg/dL (0-150) 10/30/17 06:55 Cholesterol 108 mg/dL (0-200) 10/30/17 06:55 LDL Cholesterol, Calc 44 mg/dL (0-100) 10/30/17 06:55 HDL Cholesterol 47 mg/dL (40-60) 10/30/17 06:55 Cholesterol/HDL Ratio 2.3 (0.0-5.0) 10/30/17 06:55 Specimen Type Catherized urine 10/29/17 19:15 Urine Color Yellow (YELLOW) 10/29/17 19:15 Urine Appearance Cloudy (CLEAR) 10/29/17 19:15 Urine pH 5.0 (5.0 - 8.0) 10/29/17 19:15 Ur Specific [place] 1.020 (1.000-1.030) 10/29/17 19:15 Urine Protein 2+ (NEGATIVE) 10/29/17 19:15 Urine Glucose (UA) Negative (NEGATIVE) 10/29/17 19:15 Urine Ketones Negative (NEGATIVE) 10/29/17 19:15 Urine Occult Blood 5+ (NEGATIVE) 10/29/17 19:15 Urine Nitrite Negative (NEGATIVE) 10/29/17 19:15 Urine Bilirubin Negative (NEGATIVE) 10/29/17 19:15 Urine Urobilinogen Normal (NORMAL) 10/29/17 19:15 Ur Leukocyte Esterase 3+ (NEGATIVE) 10/29/17 19:15 Urine RBC Tntc /HPF (NONE SEEN) 10/29/17 19:15 Urine WBC 30-50 /HPF (NONE SEEN) 10/29/17 19:15 Ur Squamous Epith Cells Rare /HPF (NEGATIVE) 10/29/17 19:15 Urine Bacteria 4+ /HPF (NEGATIVE) 10/29/17 19:15 Ur Culture Indicated? Yes/culture set up 10/29/17 19:15 - Plan (1) CHF (congestive heart failure) Status: Acute Qualifiers: Heart failure type: unspecified Heart failure chronicity: acute on chronic Qualified Code(s): I50.9 - Heart failure, unspecified Plan: RESPIRATORY TREATMENTS, SUPPLEMENTAL OXYGEN, MONITOR LABS AND CHEST XRAY (2) COPD exacerbation Status: Acute Plan: XOPENEX, PULMICORT, ATROVENT NEB TX, LEVAQUIN IV, CONTINUE TO MONITOR
[2017-11-04] MEDS: XANAX PO SCH (20:34)
[2017-11-04] MEDS: NORCO 10/325 TAB PO PRN (20:35)
[2017-11-04] MEDS: DESVENLAFAXINE SUCCINATE PO SCH (22:23)
[2017-11-05 05:27] LABS: BASOPHILS % (AUTO) 0.4 % (0.2-1.0); HEMATOCRIT 33.4 % (36.0-47.0); HEMOGLOBIN 11.3 g/dL (12.0-16.0); LYMPHOCYTES % (AUTO) 9.3 % (21.0-51.0); MEAN CORPUSCULAR HEMOGLOBIN 34.3 pg (27.0-34.0); MEAN CORPUSCULAR HGB CONC 33.7 g/dL (33.0-35.0); MEAN CORPUSCULAR VOLUME 101.8 fL (80.0-100.0); MEAN PLATELET VOLUME 8.5 fL (7.4-11.0); MONOCYTES # (AUTO) 1.2 x10^3/uL (0.3-0.8); MONOCYTES % (AUTO) 11.2 % (0.0-13.0); NEUTROPHILS # (AUTO) 8.7 x10^3/uL (2.2-4.8); NEUTROPHILS % (AUTO) 79.1 % (42.0-75.0); PLATELET COUNT 101 X10^3/uL (150.0-450.0); RED BLOOD COUNT 3.29 X10^6/uL (3.5-5.4); RED CELL DISTRIBUTION WIDTH 14.6 % (11.6-16.5)
[2017-11-05 05:53] LABS: ALANINE AMINOTRANSFERASE 25 Units/L (12-78); ALBUMIN 2.9 g/dL (3.4-5.0); ALKALINE PHOSPHATASE 105 Units/L (46-116); ASPARTATE AMINO TRANSFERASE 34 Units/L (15-37); BLOOD UREA NITROGEN 59 mg/dL (7-18); CALCIUM 8.4 mg/dL (8.5-10.1); CARBON DIOXIDE 28.5 mmol/L (21-32); CHLORIDE 93 mmol/L (98-107); COR CA(FOR HYPOALB) 9.3 mg/dL (8.5-10.1); CREATININE 2.26 mg/dL (0.55-1.02); SODIUM 128 mmol/L (136-145); TOTAL PROTEIN 7.4 g/dL (6.4-8.2); eGFR NON BLACK RACES 22 (>60)
[2017-11-05 06:33] LABS: PLATELET MORPHOLOGY COMMENT NORMAL (NORMAL)
[2017-11-05 06:52] LABS: B-TYPE NATRIURETIC PEPTIDE 1480 pg/mL (0-79)
--- NOTE | 2017-11-05 07:38 | RAD ---
HISTORY: Shortness of breath, congestive heart failure Study: Chest AP portable Comparison: 11/04/2017 Findings: The patient is rotated severely to the right. The heart remains enlarged. The aorta is ecstatic and t he arch likely dilated unchanged from the prior examination. The lungs are hypo inflated. Interstitia l lung changes are present bilaterally which could be on the basis of edema or pneumonitis. This find ing is also stable. IMPRESSION: No significant change from the prior examination Reported By:
[2017-11-05] MEDS: Atrovent NEB TX 0.02% NEB SCH ×2 (08:57→21:52)
[2017-11-05] MEDS: PULMICORT NEB TX 0.5 MG NEB SCH ×2 (09:00→21:52)
[2017-11-05] MEDS: XOPENEX 1.25 MG/3 ML NEBULE NEB SCH ×4 (09:00→21:52)
[2017-11-05] MEDS ORDERED: LEXAPRO ONE (12:20)
[2017-11-05] MEDS ORDERED: NITRO-BID OINT 2% UD (E.R. USE ONLY) ONE (12:23)
[2017-11-05] MEDS: ASPIRIN EC 81 MG PO SCH (12:32)
[2017-11-05] MEDS: CLARITIN PO SCH (12:32)
[2017-11-05] MEDS: LEXAPRO PO SCH (12:33)
[2017-11-05] MEDS: PLAVIX PO SCH (12:33)
[2017-11-05] MEDS: LOPRESSOR TAB 25 MG PO SCH ×2 (12:33→21:35)
[2017-11-05] MEDS: MOBIC TAB 15 MG PO SCH (12:33)
[2017-11-05] MEDS: NEURONTIN CAP 300 MG PO SCH ×2 (12:33→21:36)
[2017-11-05] MEDS: NITRO-BID OINT 2% Multi-Dose tube TD SCH ×3 (12:34→13:30)
[2017-11-05] MEDS: PROTONIX INJ 40 MG VIAL IVP SCH (12:34)
[2017-11-05] MEDS: CYMBALTA PO SCH (12:35)
[2017-11-05] MEDS: DIFLUCAN PO SCH (12:36)
[2017-11-05] MEDS: LEVAQUIN PREMIX IV 250 MG 250 MG/50 ML BAG IV SCH (12:36)
[2017-11-05] MEDS ORDERED: INVANZ INJ 1 GM VIAL ONE (12:41)
[2017-11-05] MEDS ORDERED: NS 25 ML IV 25 ML IV ONE (12:43)
[2017-11-05] MEDS: INVANZ INJ 1 GM VIAL 0.5 GM in NS 50 ML IV 50 ML IV SCH (12:54)
[2017-11-05 13:53] LABS: ABG HCO3 36.8 mmol/L (22-26)
[2017-11-05] MEDS: DESVENLAFAXINE SUCCINATE PO SCH (21:35)
[2017-11-05] MEDS: XANAX PO SCH (21:36)
[2017-11-06 05:35] LABS: ABG BASE EXCESS 9.4 mmol/L (-2.0-2.0)
[2017-11-06 05:37] LABS: ABG HCO3 37.5 mmol/L (22-26)
[2017-11-06 06:10] LABS: BASOPHILS # (AUTO) 0.1 X10^3/uL (0.0-0.1); BASOPHILS % (AUTO) 0.6 % (0.2-1.0); EOSINOPHILS # (AUTO) 0.1 x10^3/uL (0.0-0.2); HEMOGLOBIN 10.9 g/dL (12.0-16.0); LYMPHOCYTES # (AUTO) 1.2 X10^3/uL (1.3-2.9)
[2017-11-06 06:19] LABS: HEMATOCRIT 32.3 % (36.0-47.0); LYMPHOCYTES % (AUTO) 11.5 % (21.0-51.0); MEAN CORPUSCULAR HEMOGLOBIN 34.6 pg (27.0-34.0); MEAN CORPUSCULAR HGB CONC 33.8 g/dL (33.0-35.0); MEAN CORPUSCULAR VOLUME 102.3 fL (80.0-100.0); MEAN PLATELET VOLUME 9.4 fL (7.4-11.0); MONOCYTES # (AUTO) 1.1 x10^3/uL (0.3-0.8); MONOCYTES % (AUTO) 10.8 % (0.0-13.0); NEUTROPHILS # (AUTO) 7.6 x10^3/uL (2.2-4.8); NEUTROPHILS % (AUTO) 76.1 % (42.0-75.0); PLATELET COUNT 82 X10^3/uL (150.0-450.0); RED BLOOD COUNT 3.16 X10^6/uL (3.5-5.4); RED CELL DISTRIBUTION WIDTH 14.4 % (11.6-16.5)
[2017-11-06 06:38] LABS: ALANINE AMINOTRANSFERASE 23 Units/L (12-78); ALBUMIN 2.7 g/dL (3.4-5.0); ALKALINE PHOSPHATASE 115 Units/L (46-116); ASPARTATE AMINO TRANSFERASE 31 Units/L (15-37); BLOOD UREA NITROGEN 63 mg/dL (7-18); CALCIUM 8.3 mg/dL (8.5-10.1); CARBON DIOXIDE 33.1 mmol/L (21-32); CHLORIDE 94 mmol/L (98-107); COR CA(FOR HYPOALB) 9.3 mg/dL (8.5-10.1); CREATININE 2.17 mg/dL (0.55-1.02); SODIUM 129 mmol/L (136-145); TOTAL PROTEIN 6.9 g/dL (6.4-8.2); eGFR NON BLACK RACES 23 (>60)
[2017-11-06] MEDS: NITRO-BID OINT 2% Multi-Dose tube TD SCH ×3 (06:38→09:02)
--- NOTE | 2017-11-06 06:54 | RAD ---
HISTORY: Shortness of breath Study: Chest AP portable Comparison: 11/05/2017 Findings: The heart remains enlarged. The aorta is ectatic and calcified. The lungs are mildly hypo inflated. I nterstitial lung changes remain stable when compared with the prior examination and could be on the b asis of edema or pneumonitis. Right pleural effusion is present. No alveolar infiltrates or alveolar edema is identified. The bony thorax is unremarkable. IMPRESSION: Persistent cardiomegaly with interstitial lung changes which could reflect mild edema Right pleural effusion unchanged Reported By:
[2017-11-06] MEDS ORDERED: LEXAPRO ONE (07:40)
[2017-11-06] MEDS ORDERED: NITRO-BID OINT 2% UD (E.R. USE ONLY) ONE (07:41)
[2017-11-06] MEDS: Atrovent NEB TX 0.02% NEB SCH ×2 (08:45→20:54)
[2017-11-06] MEDS: PULMICORT NEB TX 0.5 MG NEB SCH ×2 (08:45→20:53)
[2017-11-06] MEDS: XOPENEX 1.25 MG/3 ML NEBULE NEB SCH ×4 (08:45→20:53)
[2017-11-06] MEDS: PLAVIX PO SCH (09:03)
[2017-11-06] MEDS: PROTONIX INJ 40 MG VIAL IVP SCH (09:04)
[2017-11-06] MEDS: ASPIRIN EC 81 MG PO SCH (09:04)
[2017-11-06] MEDS: LEXAPRO PO SCH (09:04)
[2017-11-06] MEDS: DIFLUCAN PO SCH (09:04)
[2017-11-06] MEDS: NEURONTIN CAP 300 MG PO SCH ×2 (09:04→21:30)
[2017-11-06] MEDS: LOPRESSOR TAB 25 MG PO SCH ×2 (09:04→21:30)
[2017-11-06] MEDS: CYMBALTA PO SCH (09:05)
[2017-11-06] MEDS: INVANZ INJ 1 GM VIAL 0.5 GM in NS 50 ML IV 50 ML IV SCH (09:05)
[2017-11-06] MEDS: LEVAQUIN PREMIX IV 250 MG 250 MG/50 ML BAG IV SCH (09:05)
--- NOTE | 2017-11-06 17:58 | PCM.PROG ---
Progress Note - Progress Note for Day of Date of Exam: 11/06/17 - Subjective Subjective: WAS ADMITTED ON 10/29/2017 FOR DYSPNEA, CHF EXACERBATION, AND CHEST PAIN. PT IS S/P AMI, ECHO WITH STABLE EF.SHE IS NOTED WITH INCREASED COUGH AND SHORTNESS OF BREATH TODAY. ON EXAMINATION, BILATERAL LUNGS CONTINUE DIFFUSE RHONCHI. SHE CONTINUES TO RECEIVE IV ANTIBIOTIC AND RESPIRATORY TREATMENTS. CXR REVEALS EFFUSION, HOLDING LASIX DUE TO INCREASED CREATNINE AND HYPOTENSION. PT IS MORE AWAKE AND ALERT THIS AM, DENIES CHEST PAIN, CONTINUES WITH THICK SPUTUM PRODUCTION. ABG CO2 82.0, STARTED ON BIPAP LAST PM WITH SOME IMPROVEMENT THIS AM, IMPROVED PCO2 68, WILL CONTINUE RESP CARE, NURSING TO NOTIFY FAMILY AND JAIL OF PT'S CONDITION. - Past Medical Family Social History Past Med/Fam/Surg Hx: No changes since H&P Allergies: Allergies aspirin Allergy (Verified 01/30/17 15:42) diphenhydramine [From Benadryl] Allergy (Verified 01/30/17 15:43) lisinopril Allergy (Verified 01/30/17 15:43) zolpidem [From Ambien] Allergy (Verified 01/30/17 15:42) - Review of Systems ROS: No change since H&P - Vital Signs and I&O's Vital Signs: Temperature 98.9 F Pulse Rate [Apical] 79 Pulse Rate 77 Respiratory Rate 9 Blood Pressure [Left Arm] 98/52 Blood Pressure [Right Arm] 101/51 Blood Pressure 91/63 O2 Sat by Pulse Oximetry 100 Intake and Output: Intake & Output 11/04/17 11/05/17 11/06/17 11/07/17 11:59 11:59 11:59 11:59 Intake Total 890 / 890 360 / 360 880 / 880 380 / 380 Output Total 600 / 600 800 / 800 1200 / 1200 500 / 500 Balance 290 / 290 -440 / -440 -320 / -320 -120 / -120 - Physical Exam Oriented: Normal Eyes: Normal Ear: Normal Nose: Normal Throat: Normal Respiratory: Right, Left, Rales, Rhonchi Cardiovascular: Normal : Normal Auscultation: Bowel Sounds: Normal Tenderness: Normal Skin: Decreased Turgur Musculoskeletal: Motor Deficit (Weak, bedbound), Instability Psychiatric: Normal Mood Description: Calm Affect: Normal Speech Pattern: Clear, Appropriate - Laboratory and Diagnostics Result Diagrams: 11/06/17 05:15 11/06/17 05:15 Labs: 11/05/17 09:34 Sputum - Expectorated Sputum Sputum Culture - Preliminary 11/05/17 09:34 Sputum - Expectorated Sputum - Final 10/29/17 19:15 Urine,Catheterized Urine Culture - Final Escherichia Coli Escherichia Coli#2 Laboratory WBC 10.0 X10^3/uL (3.6-10.0) 11/06/17 05:15 RBC 3.16 X10^6/uL (3.5-5.4) L 11/06/17 05:15 Hgb 10.9 g/dL (12.0-16.0) L 11/06/17 05:15 Hct 32.3 % (36.0-47.0) L 11/06/17 05:15 MCV 102.3 fL (80.0-100.0) H 11/06/17 05:15 MCH 34.6 pg (27.0-34.0) H 11/06/17 05:15 MCHC 33.8 g/dL (33.0-35.0) 11/06/17 05:15 RDW 14.4 % (11.6-16.5) 11/06/17 05:15 Plt Count 82 X10^3/uL (150.0-450.0) L 11/06/17 05:15 Plt Count Comment Decreased (ADEQUATE) A 11/05/17 04:55 MPV 9.4 fL (7.4-11.0) 11/06/17 05:15 Neut % (Auto) 76.1 % (42.0-75.0) H 11/06/17 05:15 Lymph % (Auto) 11.5 % (21.0-51.0) L 11/06/17 05:15 [place] % (Auto) 10.8 % (0.0-13.0) 11/06/17 05:15 Eos % (Auto) 1.0 % (0.9-2.9) 11/06/17 05:15 Baso % (Auto) 0.6 % (0.2-1.0) 11/06/17 05:15 Neut # (Auto) 7.6 x10^3/uL (2.2-4.8) H 11/06/17 05:15 Lymph # (Auto) 1.2 X10^3/uL (1.3-2.9) L 11/06/17 05:15 [place] # (Auto) 1.1 x10^3/uL (0.3-0.8) H 11/06/17 05:15 Eos # (Auto) 0.1 x10^3/uL (0.0-0.2) 11/06/17 05:15 Baso # (Auto) 0.1 X10^3/uL (0.0-0.1) 11/06/17 05:15 Absolute Nucleated RBC 0.1 /100WBC 11/06/17 05:15 Total Counted 100 11/05/17 04:55 Neutrophils % (Manual) 79 % (39-76) H 11/05/17 04:55 Lymphocytes % (Manual) 10 % (13-43) L 11/05/17 04:55 Monocytes % (Manual) 11 % (4-9) H 11/05/17 04:55 Plt Morphology Comment Normal (NORMAL) 11/05/17 04:55 RBC Morphology Normal (NORMAL) 11/05/17 04:55 INR Target Range - 10/29/17 20:58 INR 1.11 (0.8-1.3) 10/29/17 20:58 APTT 64.9 SECONDS (22.9-36.5) H 11/01/17 04:57 PTT Comment - 11/01/17 04:57 Sample Site Lbra 11/06/17 05:24 ABG pH 7.350 (7.35-7.45) 11/06/17 05:24 ABG pCO2 68.0 mmHg (35.0-45.0) H* 11/06/17 05:24 ABG pO2 58.0 mmHg (80.0-100.0) L 11/06/17 05:24 ABG HCO3 37.5 mmol/L (22-26) H* 11/06/17 05:24 ABG O2 Saturation 88.0 % (90-100) L 11/06/17 05:24 ABG Base Excess 9.4 mmol/L (-2.0-2.0) H 11/06/17 05:24 Dorian Test Na 11/06/17 05:24 A-a Gradient 57.0 mmHg 11/06/17 05:24 FiO2 28.000 11/06/17 05:24 Blood Gas Comments Beverley abg well-mtf 11/06/17 05:24 Sodium 129 mmol/L (136-145) L 11/06/17 05:15 Corrected Sodium TNP 11/06/17 05:15 Potassium 5.1 mmol/L (3.5-5.1) 11/06/17 05:15 Chloride 94 mmol/L (98-107) L 11/06/17 05:15 Carbon Dioxide 33.1 mmol/L (21-32) H 11/06/17 05:15 BUN 63 mg/dL (7-18) H 11/06/17 05:15 Creatinine 2.17 mg/dL (0.55-1.02) H 11/06/17 05:15 Est GFR (MDRD) Af Amer 28 (>60) L 11/06/17 05:15 Est GFR (MDRD) Non-Af 23 (>60) L 11/06/17 05:15 Glucose 85 mg/dL (65-99) 11/06/17 05:15 POC Glucose (mg/dL) 88 mg/dL (65-99) 10/30/17 11:01 Calcium 8.3 mg/dL (8.5-10.1) L 11/06/17 05:15 Corrected Calcium 9.3 mg/dL (8.5-10.1) 11/06/17 05:15 Magnesium 2.0 mg/dL (1.7-2.9) 10/29/17 19:03 Total Bilirubin 0.50 mg/dL (0.2-1.0) 11/06/17 05:15 AST 31 Units/L (15-37) 11/06/17 05:15 ALT 23 Units/L (12-78) 11/06/17 05:15 Alkaline Phosphatase 115 Units/L (46-116) 11/06/17 05:15 Creatine Kinase 79 Units/L (26-192) 10/30/17 06:55 CK-MB (CK-2) 10.2 ng/mL (0-4.0) H* 10/30/17 06:55 CK/CKMB % Calc 12.9 % (<4) 10/30/17 06:55 Troponin I 1.69 ng/mL (0-1.5) H* 10/30/17 06:55 B-Natriuretic Peptide 1480 pg/mL (0-79) H* 11/05/17 04:55 Total Protein 6.9 g/dL (6.4-8.2) 11/06/17 05:15 Albumin 2.7 g/dL (3.4-5.0) L 11/06/17 05:15 Globulin 4.2 g/dL (2.5-4.5) 11/06/17 05:15 Albumin/Globulin Ratio 0.6 Ratio (1.1-2.1) L 11/06/17 05:15 Triglycerides 84 mg/dL (0-150) 10/30/17 06:55 Cholesterol 108 mg/dL (0-200) 10/30/17 06:55 LDL Cholesterol, Calc 44 mg/dL (0-100) 10/30/17 06:55 HDL Cholesterol 47 mg/dL (40-60) 10/30/17 06:55 Cholesterol/HDL Ratio 2.3 (0.0-5.0) 10/30/17 06:55 Specimen Type Catherized urine 10/29/17 19:15 Urine Color Yellow (YELLOW) 10/29/17 19:15 Urine Appearance Cloudy (CLEAR) 10/29/17 19:15 Urine pH 5.0 (5.0 - 8.0) 10/29/17 19:15 Ur Specific [place] 1.020 (1.000-1.030) 10/29/17 19:15 Urine Protein 2+ (NEGATIVE) 10/29/17 19:15 Urine Glucose (UA) Negative (NEGATIVE) 10/29/17 19:15 Urine Ketones Negative (NEGATIVE) 10/29/17 19:15 Urine Occult Blood 5+ (NEGATIVE) 10/29/17 19:15 Urine Nitrite Negative (NEGATIVE) 10/29/17 19:15 Urine Bilirubin Negative (NEGATIVE) 10/29/17 19:15 Urine Urobilinogen Normal (NORMAL) 10/29/17 19:15 Ur Leukocyte Esterase 3+ (NEGATIVE) 10/29/17 19:15 Urine RBC Tntc /HPF (NONE SEEN) 10/29/17 19:15 Urine WBC 30-50 /HPF (NONE SEEN) 10/29/17 19:15 Ur Squamous Epith Cells Rare /HPF (NEGATIVE) 10/29/17 19:15 Urine Bacteria 4+ /HPF (NEGATIVE) 10/29/17 19:15 Ur Culture Indicated? Yes/culture set up 10/29/17 19:15 - Plan (1) Acute myocardial infarction Status: Acute Plan: S/P AMI. Heparin, Plavix, Telemetry (2) CHF (congestive heart failure) Status: Acute Qualifiers: Heart failure type: unspecified Heart failure chronicity: acute on chronic Qualified Code(s): I50.9 - Heart failure, unspecified Plan: RESPIRATORY TREATMENTS, SUPPLEMENTAL OXYGEN, MONITOR LABS AND CHEST XRAY. ABG TODAY. STRICT I & OS, BP AND CARDIAC MONITORING (3) COPD exacerbation Status: Acute Plan: XOPENEX, PULMICORT, ATROVENT NEB TX, LEVAQUIN IV, CONTINUE TO MONITOR (4) Chronic kidney disease Status: Acute Plan: Monitor BUN/CR/GFR
[2017-11-06] MEDS ORDERED: XOPENEX 1.25 MG/3 ML NEBULE NEB ONE (20:24)
[2017-11-06] MEDS ORDERED: PULMICORT NEB TX 0.5 MG NEB ONE (20:24)
[2017-11-06] MEDS ORDERED: Atrovent NEB TX 0.02% ONE (20:25)
[2017-11-06] MEDS: XANAX PO SCH (21:30)
[2017-11-07 06:50] LABS: ALANINE AMINOTRANSFERASE 19 Units/L (12-78); ALBUMIN 2.6 g/dL (3.4-5.0); ALKALINE PHOSPHATASE 106 Units/L (46-116); ASPARTATE AMINO TRANSFERASE 25 Units/L (15-37); BLOOD UREA NITROGEN 60 mg/dL (7-18); CALCIUM 8.4 mg/dL (8.5-10.1); CARBON DIOXIDE 33.3 mmol/L (21-32); CHLORIDE 97 mmol/L (98-107); COR CA(FOR HYPOALB) 9.5 mg/dL (8.5-10.1); CREATININE 1.95 mg/dL (0.55-1.02); SODIUM 131 mmol/L (136-145); TOTAL PROTEIN 6.8 g/dL (6.4-8.2); eGFR NON BLACK RACES 26 (>60)
[2017-11-07 07:14] LABS: BASOPHILS % (AUTO) 0.3 % (0.2-1.0); EOSINOPHILS # (AUTO) 0.2 x10^3/uL (0.0-0.2); EOSINOPHILS % (AUTO) 1.8 % (0.9-2.9); HEMATOCRIT 34.2 % (36.0-47.0); HEMOGLOBIN 11.5 g/dL (12.0-16.0); LYMPHOCYTES # (AUTO) 1.4 X10^3/uL (1.3-2.9); LYMPHOCYTES % (AUTO) 11.5 % (21.0-51.0); MEAN CORPUSCULAR HEMOGLOBIN 34.4 pg (27.0-34.0); MEAN CORPUSCULAR HGB CONC 33.7 g/dL (33.0-35.0); MEAN CORPUSCULAR VOLUME 102.2 fL (80.0-100.0); MEAN PLATELET VOLUME 9.5 fL (7.4-11.0); MONOCYTES # (AUTO) 1.2 x10^3/uL (0.3-0.8); MONOCYTES % (AUTO) 10.1 % (0.0-13.0); NEUTROPHILS # (AUTO) 9.4 x10^3/uL (2.2-4.8); NEUTROPHILS % (AUTO) 76.3 % (42.0-75.0); PLATELET COUNT 64 X10^3/uL (150.0-450.0); RED BLOOD COUNT 3.34 X10^6/uL (3.5-5.4); RED CELL DISTRIBUTION WIDTH 14.8 % (11.6-16.5); WHITE BLOOD COUNT 12.3 X10^3/uL (3.6-10.0)
[2017-11-07] MEDS: NITRO-BID OINT 2% Multi-Dose tube TD SCH ×3 (08:31→22:23)
[2017-11-07] MEDS: LEXAPRO PO SCH (08:43)
[2017-11-07] MEDS: LOPRESSOR TAB 25 MG PO SCH ×2 (08:43→20:30)
[2017-11-07] MEDS: CYMBALTA PO SCH (08:43)
[2017-11-07] MEDS: ASPIRIN EC 81 MG PO SCH (08:43)
[2017-11-07] MEDS: PROTONIX INJ 40 MG VIAL IVP SCH (08:44)
[2017-11-07] MEDS: PLAVIX PO SCH (08:44)
[2017-11-07] MEDS: NEURONTIN CAP 300 MG PO SCH ×2 (08:44→20:30)
[2017-11-07] MEDS: INVANZ INJ 1 GM VIAL 0.5 GM in NS 50 ML IV 50 ML IV SCH (08:56)
[2017-11-07] MEDS: XOPENEX 1.25 MG/3 ML NEBULE NEB SCH ×4 (09:10→20:18)
[2017-11-07] MEDS: PULMICORT NEB TX 0.5 MG NEB SCH ×2 (09:10→20:18)
[2017-11-07] MEDS: Atrovent NEB TX 0.02% NEB SCH ×2 (09:10→20:18)
[2017-11-07 09:32] LABS: ABG BASE EXCESS 12.2 mmol/L (-2.0-2.0)
[2017-11-07 09:33] LABS: ABG ALLEN TEST POS; ABG HCO3 39.3 mmol/L (22-26)
[2017-11-07] MEDS: LEVAQUIN PREMIX IV 250 MG 250 MG/50 ML BAG IV SCH (09:54)
--- NOTE | 2017-11-07 10:36 | RAD ---
HISTORY: Abnormal lung sounds Study: Single-view of the chest Comparison: November 06, 2017 Findings: The patient is rotated. The cardiac silhouette is enlarged. A moderate to large right-sided pleural effusion is again demonstrated and may have slightly increased in size since prior exam. A small left -sided pleural effusion is noted as well. Interstitial changes are seen throughout both lungs. Low asiya ng volumes are demonstrated bilaterally. The aorta is partially calcified and tortuous. Postoperat jennifer changes of the spine are noted. IMPRESSION: Cardiomegaly. Bilateral pleural effusions right greater than left. Interstitial changes. Reported By:
[2017-11-07] MEDS: CLARITIN PO SCH (10:37)
--- NOTE | 2017-11-07 18:43 | PCM.PROG ---
Progress Note - Progress Note for Day of Date of Exam: 11/07/17 - Subjective Subjective: WAS ADMITTED ON 10/29/2017 FOR DYSPNEA, CHF EXACERBATION, AND CHEST PAIN. PT IS S/P AMI, ECHO WITH STABLE EF.SHE IS NOTED WITH INCREASED COUGH AND SHORTNESS OF BREATH TODAY, CURRENTLY ON BIPAP. REPEAT CXR CONTIUES WITH PLEURAL EFFUSION, SLIGHT IMPROVEMENT IN BP, WILL GIVE LASIX 20MG IV X 2 DOSES. VERY LETHARGIC THIS AM, UNABLE TO EAT BREAKFAST, NURSING STAFF ATTEMPTINT TO CONTACT NEXT OF KIN ABOUT PT DECLINE IN CONDITION. ON EXAMINATION , BILATERAL LUNGS CONTINUE DIFFUSE RHONCHI. SHE CONTINUES TO RECEIVE IV ANTIBIOTIC AND RESPIRATORY TREATMENTS. WILL CONTINUE RESP CARE - Past Medical Family Social History Past Med/Fam/Surg Hx: No changes since H&P Allergies: Allergies aspirin Allergy (Verified 01/30/17 15:42) diphenhydramine [From Benadryl] Allergy (Verified 01/30/17 15:43) lisinopril Allergy (Verified 01/30/17 15:43) zolpidem [From Ambien] Allergy (Verified 01/30/17 15:42) - Review of Systems ROS: No change since H&P - Vital Signs and I&O's Vital Signs: Temperature 97.3 F Pulse Rate [Apical] 97 Pulse Rate 94 Respiratory Rate 21 Blood Pressure [Left Arm] 123/61 Blood Pressure [Right Arm] 101/51 Blood Pressure 91/63 O2 Sat by Pulse Oximetry 100 Intake and Output: Intake & Output 11/05/17 11/06/17 11/07/17 11/08/17 11:59 11:59 11:59 11:59 Intake Total 360 / 360 880 / 880 520 / 520 150 / 150 Output Total 800 / 800 1200 / 1200 1900 / 1900 1200 / 1200 Balance -440 / -440 -320 / -320 -1380 / -1380 -1050 / -1050 - Physical Exam Oriented: Person Eyes: Normal Ear: Normal Nose: Normal Throat: Normal Respiratory: Right, Left, Rales, Rhonchi Cardiovascular: Normal : Normal Auscultation: Bowel Sounds: Normal Tenderness: Normal Skin: Decreased Turgur Musculoskeletal: Motor Deficit (Weak, bedbound), Instability Psychiatric: Normal Mood Description: Calm Affect: Normal Speech Pattern: Clear, Appropriate - Laboratory and Diagnostics Result Diagrams: 11/07/17 05:39 11/07/17 05:39 Labs: 11/05/17 09:34 Sputum - Expectorated Sputum Sputum Culture - Final 11/05/17 09:34 Sputum - Expectorated Sputum - Final 10/29/17 19:15 Urine,Catheterized Urine Culture - Final Escherichia Coli Escherichia Coli#2 Laboratory WBC 12.3 X10^3/uL (3.6-10.0) H 11/07/17 05:39 RBC 3.34 X10^6/uL (3.5-5.4) L 11/07/17 05:39 Hgb 11.5 g/dL (12.0-16.0) L 11/07/17 05:39 Hct 34.2 % (36.0-47.0) L 11/07/17 05:39 MCV 102.2 fL (80.0-100.0) H 11/07/17 05:39 MCH 34.4 pg (27.0-34.0) H 11/07/17 05:39 MCHC 33.7 g/dL (33.0-35.0) 11/07/17 05:39 RDW 14.8 % (11.6-16.5) 11/07/17 05:39 Plt Count 64 X10^3/uL (150.0-450.0) L 11/07/17 05:39 Plt Count Comment Decreased (ADEQUATE) A 11/05/17 04:55 MPV 9.5 fL (7.4-11.0) 11/07/17 05:39 Neut % (Auto) 76.3 % (42.0-75.0) H 11/07/17 05:39 Lymph % (Auto) 11.5 % (21.0-51.0) L 11/07/17 05:39 [place] % (Auto) 10.1 % (0.0-13.0) 11/07/17 05:39 Eos % (Auto) 1.8 % (0.9-2.9) 11/07/17 05:39 Baso % (Auto) 0.3 % (0.2-1.0) 11/07/17 05:39 Neut # (Auto) 9.4 x10^3/uL (2.2-4.8) H 11/07/17 05:39 Lymph # (Auto) 1.4 X10^3/uL (1.3-2.9) 11/07/17 05:39 [place] # (Auto) 1.2 x10^3/uL (0.3-0.8) H 11/07/17 05:39 Eos # (Auto) 0.2 x10^3/uL (0.0-0.2) 11/07/17 05:39 Baso # (Auto) 0.0 X10^3/uL (0.0-0.1) 11/07/17 05:39 Absolute Nucleated RBC 0.0 /100WBC 11/07/17 05:39 Total Counted 100 11/05/17 04:55 Neutrophils % (Manual) 79 % (39-76) H 11/05/17 04:55 Lymphocytes % (Manual) 10 % (13-43) L 11/05/17 04:55 Monocytes % (Manual) 11 % (4-9) H 11/05/17 04:55 Plt Morphology Comment Normal (NORMAL) 11/05/17 04:55 RBC Morphology Normal (NORMAL) 11/05/17 04:55 INR Target Range - 10/29/17 20:58 INR 1.11 (0.8-1.3) 10/29/17 20:58 APTT 64.9 SECONDS (22.9-36.5) H 11/01/17 04:57 PTT Comment - 11/01/17 04:57 Sample Site Rra 11/07/17 09:25 ABG pH 7.410 (7.35-7.45) 11/07/17 09:25 ABG pCO2 62.0 mmHg (35.0-45.0) H* 11/07/17 09:25 ABG pO2 70.0 mmHg (80.0-100.0) L 11/07/17 09:25 ABG HCO3 39.3 mmol/L (22-26) H* 11/07/17 09:25 ABG O2 Saturation 94.0 % (90-100) 11/07/17 09:25 ABG Base Excess 12.2 mmol/L (-2.0-2.0) H 11/07/17 09:25 Dorian Test Pos 11/07/17 09:25 A-a Gradient 52.0 mmHg 11/07/17 09:25 FiO2 28.000 11/07/17 09:25 Blood Gas Comments Beverley well cs 11/07/17 09:25 Sodium 131 mmol/L (136-145) L 11/07/17 05:39 Corrected Sodium TNP 11/07/17 05:39 Potassium 4.9 mmol/L (3.5-5.1) 11/07/17 05:39 Chloride 97 mmol/L (98-107) L 11/07/17 05:39 Carbon Dioxide 33.3 mmol/L (21-32) H 11/07/17 05:39 BUN 60 mg/dL (7-18) H 11/07/17 05:39 Creatinine 1.95 mg/dL (0.55-1.02) H 11/07/17 05:39 Est GFR (MDRD) Af Amer 32 (>60) L 11/07/17 05:39 Est GFR (MDRD) Non-Af 26 (>60) L 11/07/17 05:39 Glucose 82 mg/dL (65-99) 11/07/17 05:39 POC Glucose (mg/dL) 88 mg/dL (65-99) 10/30/17 11:01 Calcium 8.4 mg/dL (8.5-10.1) L 11/07/17 05:39 Corrected Calcium 9.5 mg/dL (8.5-10.1) 11/07/17 05:39 Magnesium 2.0 mg/dL (1.7-2.9) 10/29/17 19:03 Total Bilirubin 0.70 mg/dL (0.2-1.0) 11/07/17 05:39 AST 25 Units/L (15-37) 11/07/17 05:39 ALT 19 Units/L (12-78) 11/07/17 05:39 Alkaline Phosphatase 106 Units/L (46-116) 11/07/17 05:39 Creatine Kinase 79 Units/L (26-192) 10/30/17 06:55 CK-MB (CK-2) 10.2 ng/mL (0-4.0) H* 10/30/17 06:55 CK/CKMB % Calc 12.9 % (<4) 10/30/17 06:55 Troponin I 1.69 ng/mL (0-1.5) H* 10/30/17 06:55 B-Natriuretic Peptide 1480 pg/mL (0-79) H* 11/05/17 04:55 Total Protein 6.8 g/dL (6.4-8.2) 11/07/17 05:39 Albumin 2.6 g/dL (3.4-5.0) L 11/07/17 05:39 Globulin 4.2 g/dL (2.5-4.5) 11/07/17 05:39 Albumin/Globulin Ratio 0.6 Ratio (1.1-2.1) L 11/07/17 05:39 Triglycerides 84 mg/dL (0-150) 10/30/17 06:55 Cholesterol 108 mg/dL (0-200) 10/30/17 06:55 LDL Cholesterol, Calc 44 mg/dL (0-100) 10/30/17 06:55 HDL Cholesterol 47 mg/dL (40-60) 10/30/17 06:55 Cholesterol/HDL Ratio 2.3 (0.0-5.0) 10/30/17 06:55 Specimen Type Catherized urine 10/29/17 19:15 Urine Color Yellow (YELLOW) 10/29/17 19:15 Urine Appearance Cloudy (CLEAR) 10/29/17 19:15 Urine pH 5.0 (5.0 - 8.0) 10/29/17 19:15 Ur Specific [place] 1.020 (1.000-1.030) 10/29/17 19:15 Urine Protein 2+ (NEGATIVE) 10/29/17 19:15 Urine Glucose (UA) Negative (NEGATIVE) 10/29/17 19:15 Urine Ketones Negative (NEGATIVE) 10/29/17 19:15 Urine Occult Blood 5+ (NEGATIVE) 10/29/17 19:15 Urine Nitrite Negative (NEGATIVE) 10/29/17 19:15 Urine Bilirubin Negative (NEGATIVE) 10/29/17 19:15 Urine Urobilinogen Normal (NORMAL) 10/29/17 19:15 Ur Leukocyte Esterase 3+ (NEGATIVE) 10/29/17 19:15 Urine RBC Tntc /HPF (NONE SEEN) 10/29/17 19:15 Urine WBC 30-50 /HPF (NONE SEEN) 10/29/17 19:15 Ur Squamous Epith Cells Rare /HPF (NEGATIVE) 10/29/17 19:15 Urine Bacteria 4+ /HPF (NEGATIVE) 10/29/17 19:15 Ur Culture Indicated? Yes/culture set up 10/29/17 19:15 - Plan (1) Acute myocardial infarction Status: Acute Plan: S/P AMI. Plavix, Telemetry (2) CHF (congestive heart failure) Status: Chronic Qualifiers: Heart failure type: unspecified Heart failure chronicity: acute on chronic Qualified Code(s): I50.9 - Heart failure, unspecified Plan: RESPIRATORY TREATMENTS, SUPPLEMENTAL OXYGEN, MONITOR LABS AND CHEST XRAY. ABG TODAY. STRICT I & OS, BP AND CARDIAC MONITORING (3) COPD exacerbation Status: Acute Plan: XOPENEX, PULMICORT, ATROVENT NEB TX, LEVAQUIN IV, CONTINUE TO MONITOR (4) Chronic kidney disease Status: Chronic Plan: Monitor BUN/CR/GFR (5) Altered mental status Status: Acute Plan: SUPPORTIVE CARE, CONTINUE RESP AND CARDIAC MANGEMENT. CHOKING PRECAUTIONS
[2017-11-07] MEDS: LASIX IVP SCH (20:29)
[2017-11-07] MEDS: XANAX PO SCH (20:30)
[2017-11-08] MEDS: NITRO-BID OINT 2% Multi-Dose tube TD SCH ×3 (05:11→14:15)
[2017-11-08] MEDS ORDERED: NITRO-BID OINT 2% UD (E.R. USE ONLY) ONE ×2 (06:04→14:07)
[2017-11-08 06:11] LABS: BASOPHILS % (AUTO) 0.4 % (0.2-1.0); EOSINOPHILS # (AUTO) 0.3 x10^3/uL (0.0-0.2); EOSINOPHILS % (AUTO) 2.9 % (0.9-2.9); HEMATOCRIT 31.4 % (36.0-47.0); HEMOGLOBIN 10.6 g/dL (12.0-16.0); LYMPHOCYTES # (AUTO) 1.5 X10^3/uL (1.3-2.9); LYMPHOCYTES % (AUTO) 14.3 % (21.0-51.0); MEAN CORPUSCULAR HEMOGLOBIN 34.4 pg (27.0-34.0); MEAN CORPUSCULAR HGB CONC 33.7 g/dL (33.0-35.0); MEAN PLATELET VOLUME 9.2 fL (7.4-11.0); MONOCYTES % (AUTO) 9.7 % (0.0-13.0); NEUTROPHILS # (AUTO) 7.7 x10^3/uL (2.2-4.8); NEUTROPHILS % (AUTO) 72.7 % (42.0-75.0); PLATELET COUNT 74 X10^3/uL (150.0-450.0); RED BLOOD COUNT 3.07 X10^6/uL (3.5-5.4); RED CELL DISTRIBUTION WIDTH 14.8 % (11.6-16.5); WHITE BLOOD COUNT 10.6 X10^3/uL (3.6-10.0)
[2017-11-08 06:12] LABS: ALANINE AMINOTRANSFERASE 18 Units/L (12-78); ALBUMIN 2.4 g/dL (3.4-5.0); ALKALINE PHOSPHATASE 86 Units/L (46-116); ASPARTATE AMINO TRANSFERASE 24 Units/L (15-37); BLOOD UREA NITROGEN 51 mg/dL (7-18); CALCIUM 8.2 mg/dL (8.5-10.1); CARBON DIOXIDE 36.9 mmol/L (21-32); CHLORIDE 100 mmol/L (98-107); COR CA(FOR HYPOALB) 9.5 mg/dL (8.5-10.1); CREATININE 1.63 mg/dL (0.55-1.02); SODIUM 137 mmol/L (136-145); TOTAL PROTEIN 6.3 g/dL (6.4-8.2); eGFR NON BLACK RACES 32 (>60)
--- NOTE | 2017-11-08 06:54 | RAD ---
HISTORY: Abnormal physical exam Study: Chest AP portable Comparison: 11/07/2017 Findings: The patient is rotated to the right. The heart remains enlarged. The aorta is ectatic and likely dila georgie. The lungs remain hypo inflated. Interstitial lung changes are present. Right pleural effusion is unchanged. A small left pleural effusion may also be unchanged. The bony thorax is unremarkable. IMPRESSION: Moderate cardiomegaly without definite congestive heart failure Hypo inflation Chronic interstitial lung changes Bilateral pleural effusions right greater than left, unchanged Reported By:
[2017-11-08] MEDS ORDERED: LEXAPRO ONE (08:23)
[2017-11-08] MEDS: ASPIRIN EC 81 MG PO SCH (08:31)
[2017-11-08] MEDS: CYMBALTA PO SCH (08:31)
[2017-11-08] MEDS: LOPRESSOR TAB 25 MG PO SCH (08:31)
[2017-11-08] MEDS: PROTONIX INJ 40 MG VIAL IVP SCH (08:32)
[2017-11-08] MEDS: NEURONTIN CAP 300 MG PO SCH (08:32)
[2017-11-08] MEDS: INVANZ INJ 1 GM VIAL 0.5 GM in NS 50 ML IV 50 ML IV SCH (08:32)
[2017-11-08] MEDS: LEXAPRO PO SCH (08:32)
[2017-11-08] MEDS: LASIX IVP SCH (08:32)
[2017-11-08] MEDS: LEVAQUIN PREMIX IV 250 MG 250 MG/50 ML BAG IV SCH (08:32)
[2017-11-08] MEDS: PLAVIX PO SCH (08:37)
[2017-11-08] MEDS ORDERED: PLAVIX ONE (08:37)
[2017-11-08] MEDS: XOPENEX 1.25 MG/3 ML NEBULE NEB SCH ×3 (09:59→16:44)
[2017-11-08] MEDS: Atrovent NEB TX 0.02% NEB SCH (09:59)
[2017-11-08] MEDS: PULMICORT NEB TX 0.5 MG NEB SCH (09:59)
[2017-11-08] MEDS ORDERED: PHARMACY CONSULT - DOSE _____ XX SCH (10:00)
[2017-11-08] MEDS ORDERED: DULCOLAX SUPPOSITORY 10 MG RECTAL ONE ×2 (12:56→15:15)
[2017-11-08 18:26] VITALS: BP 116/87
[2017-11-08 18:41] LABS: BILIRUBIN,URINE NEGATIVE (NEGATIVE); BLOOD/HEMOGLOBIN,URINE 2+ (NEGATIVE); GLUCOSE, URINE NEGATIVE (NEGATIVE); KETONES,URINE NEGATIVE (NEGATIVE); LEUKOCYTE ESTERASE ,URINE NEGATIVE (NEGATIVE); NITRITES,URINE NEGATIVE (NEGATIVE); PROTEIN,URINE NEGATIVE (NEGATIVE); UROBILINOGEN,URINE NORMAL (NORMAL)
[2017-11-08 18:53] LABS: APPEARANCE,URINE CLEAR (CLEAR); BACTERIA,URINE NEGATIVE /HPF (NEGATIVE); COLOR,URINE YELLOW (YELLOW); HYALINE CASTS, URINE RARE /LPF (NEGATIVE); RBC,URINE 0-2 /HPF (NONE SEEN); SQUAMOUS EPITHELIAL CELL,UR RARE /HPF (NEGATIVE)
[2017-11-09] MEDS ORDERED: MILK OF MAGNESIA PO ONE (17:14)
--- NOTE | 2017-12-02 21:13 | PCM.DCPLAN ---
Discharge Summary - Admission Date Date of Admission: 10/29/17 - Discharge Date Discharge Date: 11/08/17 - Admission Diagnoses (1) Acute myocardial infarction Status: Acute (2) Altered mental status Status: Acute (3) COPD exacerbation Status: Acute (4) Arthritis Status: Chronic (5) CHF (congestive heart failure) Status: Chronic (6) Chronic kidney disease Status: Chronic - Discharge Diagnoses Discharge Diagnosis: SAME ADMISSION DIAGNOSIS - Discharge Medications Discharge Medications: Home Medication List escitalopram oxalate [Lexapro] 1 tab PO DAILY 10/29/17 [History] loratadine [Claritin] 1 tab PO DAILY 10/29/17 [History] aspirin [Aspir-Low] 81 mg PO DAILY tab 11/08/17 [Rx] budesonide 1 ea NEB BIDRESP ml 11/08/17 [Rx] clopidogrel [Plavix] 75 mg PO DAILY #30 tab 11/08/17 [Rx] duloxetine 30 mg PO DAILY cap 11/08/17 [Rx] furosemide [Lasix] 20 mg PO QAM #30 tab 11/08/17 [Rx] levalbuterol HCl 1.25 mg NEB QIDRESP ml 11/08/17 [Rx] metoprolol tartrate 12.5 mg PO BID #30 tab 11/08/17 [Rx] rosuvastatin [Crestor] 10 mg PO DAILY #30 tab 11/08/17 [Rx] Prescriptions: clopidogrel [Plavix] RICKY,SHE furosemide [Lasix] RICKY,SHE metoprolol tartrate RICKY,SHE rosuvastatin [Crestor] RICKY,SHE - Hospital Course Vital Signs: Temperature 97.9 F Pulse Rate [Apical] 91 Pulse Rate 84 Respiratory Rate 11 Blood Pressure [Left Arm] 116/87 Blood Pressure [Right Arm] 101/51 Blood Pressure 91/63 O2 Sat by Pulse Oximetry 100 Latest Lab Results: Laboratory Last Values WBC 10.6 X10^3/uL (3.6-10.0) H 11/08/17 05:22 RBC 3.07 X10^6/uL (3.5-5.4) L 11/08/17 05:22 Hgb 10.6 g/dL (12.0-16.0) L 11/08/17 05:22 Hct 31.4 % (36.0-47.0) L 11/08/17 05:22 MCV 102.0 fL (80.0-100.0) H 11/08/17 05:22 MCH 34.4 pg (27.0-34.0) H 11/08/17 05:22 MCHC 33.7 g/dL (33.0-35.0) 11/08/17 05:22 RDW 14.8 % (11.6-16.5) 11/08/17 05:22 Plt Count 74 X10^3/uL (150.0-450.0) L 11/08/17 05:22 Plt Count Comment Decreased (ADEQUATE) A 11/05/17 04:55 MPV 9.2 fL (7.4-11.0) 11/08/17 05:22 Neut % (Auto) 72.7 % (42.0-75.0) 11/08/17 05:22 Lymph % (Auto) 14.3 % (21.0-51.0) L 11/08/17 05:22 [place] % (Auto) 9.7 % (0.0-13.0) 11/08/17 05:22 Eos % (Auto) 2.9 % (0.9-2.9) 11/08/17 05:22 Baso % (Auto) 0.4 % (0.2-1.0) 11/08/17 05:22 Neut # (Auto) 7.7 x10^3/uL (2.2-4.8) H 11/08/17 05:22 Lymph # (Auto) 1.5 X10^3/uL (1.3-2.9) 11/08/17 05:22 [place] # (Auto) 1.0 x10^3/uL (0.3-0.8) H 11/08/17 05:22 Eos # (Auto) 0.3 x10^3/uL (0.0-0.2) H 11/08/17 05:22 Baso # (Auto) 0.0 X10^3/uL (0.0-0.1) 11/08/17 05:22 Absolute Nucleated RBC 0.2 /100WBC 11/08/17 05:22 Total Counted 100 11/05/17 04:55 Neutrophils % (Manual) 79 % (39-76) H 11/05/17 04:55 Lymphocytes % (Manual) 10 % (13-43) L 11/05/17 04:55 Monocytes % (Manual) 11 % (4-9) H 11/05/17 04:55 Plt Morphology Comment Normal (NORMAL) 11/05/17 04:55 RBC Morphology Normal (NORMAL) 11/05/17 04:55 INR Target Range - 10/29/17 20:58 INR 1.11 (0.8-1.3) 10/29/17 20:58 APTT 64.9 SECONDS (22.9-36.5) H 11/01/17 04:57 PTT Comment - 11/01/17 04:57 Sample Site Rra 11/07/17 09:25 ABG pH 7.410 (7.35-7.45) 11/07/17 09:25 ABG pCO2 62.0 mmHg (35.0-45.0) H* 11/07/17 09:25 ABG pO2 70.0 mmHg (80.0-100.0) L 11/07/17 09:25 ABG HCO3 39.3 mmol/L (22-26) H* 11/07/17 09:25 ABG O2 Saturation 94.0 % (90-100) 11/07/17 09:25 ABG Base Excess 12.2 mmol/L (-2.0-2.0) H 11/07/17 09:25 Dorian Test Pos 11/07/17 09:25 A-a Gradient 52.0 mmHg 11/07/17 09:25 FiO2 28.000 11/07/17 09:25 Blood Gas Comments Beverley well cs 11/07/17 09:25 Sodium 137 mmol/L (136-145) 11/08/17 05:22 Corrected Sodium TNP 11/08/17 05:22 Potassium 4.6 mmol/L (3.5-5.1) 11/08/17 05:22 Chloride 100 mmol/L (98-107) 11/08/17 05:22 Carbon Dioxide 36.9 mmol/L (21-32) H 11/08/17 05:22 BUN 51 mg/dL (7-18) H 11/08/17 05:22 Creatinine 1.63 mg/dL (0.55-1.02) H 11/08/17 05:22 Est GFR (MDRD) Af Amer 39 (>60) L 11/08/17 05:22 Est GFR (MDRD) Non-Af 32 (>60) L 11/08/17 05:22 Glucose 89 mg/dL (65-99) 11/08/17 05:22 POC Glucose (mg/dL) 88 mg/dL (65-99) 10/30/17 11:01 Calcium 8.2 mg/dL (8.5-10.1) L 11/08/17 05:22 Corrected Calcium 9.5 mg/dL (8.5-10.1) 11/08/17 05:22 Magnesium 2.0 mg/dL (1.7-2.9) 10/29/17 19:03 Total Bilirubin 0.60 mg/dL (0.2-1.0) 11/08/17 05:22 AST 24 Units/L (15-37) 11/08/17 05:22 ALT 18 Units/L (12-78) 11/08/17 05:22 Alkaline Phosphatase 86 Units/L (46-116) 11/08/17 05:22 Creatine Kinase 79 Units/L (26-192) 10/30/17 06:55 CK-MB (CK-2) 10.2 ng/mL (0-4.0) H* 10/30/17 06:55 CK/CKMB % Calc 12.9 % (<4) 10/30/17 06:55 Troponin I 1.69 ng/mL (0-1.5) H* 10/30/17 06:55 B-Natriuretic Peptide 1480 pg/mL (0-79) H* 11/05/17 04:55 Total Protein 6.3 g/dL (6.4-8.2) L 11/08/17 05:22 Albumin 2.4 g/dL (3.4-5.0) L 11/08/17 05:22 Globulin 3.9 g/dL (2.5-4.5) 11/08/17 05:22 Albumin/Globulin Ratio 0.6 Ratio (1.1-2.1) L 11/08/17 05:22 Triglycerides 84 mg/dL (0-150) 10/30/17 06:55 Cholesterol 108 mg/dL (0-200) 10/30/17 06:55 LDL Cholesterol, Calc 44 mg/dL (0-100) 10/30/17 06:55 HDL Cholesterol 47 mg/dL (40-60) 10/30/17 06:55 Cholesterol/HDL Ratio 2.3 (0.0-5.0) 10/30/17 06:55 Specimen Type Catherized urine 11/08/17 18:15 Urine Color Yellow (YELLOW) 11/08/17 18:15 Urine Appearance Clear (CLEAR) 11/08/17 18:15 Urine pH 5.0 (5.0 - 8.0) 11/08/17 18:15 Ur Specific [place] 1.010 (1.000-1.030) 11/08/17 18:15 Urine Protein Negative (NEGATIVE) 11/08/17 18:15 Urine Glucose (UA) Negative (NEGATIVE) 11/08/17 18:15 Urine Ketones Negative (NEGATIVE) 11/08/17 18:15 Urine Occult Blood 2+ (NEGATIVE) 11/08/17 18:15 Urine Nitrite Negative (NEGATIVE) 11/08/17 18:15 Urine Bilirubin Negative (NEGATIVE) 11/08/17 18:15 Urine Urobilinogen Normal (NORMAL) 11/08/17 18:15 Ur Leukocyte Esterase Negative (NEGATIVE) 11/08/17 18:15 Urine RBC 0-2 /HPF (NONE SEEN) 11/08/17 18:15 Urine WBC 0-2 /HPF (NONE SEEN) 11/08/17 18:15 Ur Squamous Epith Cells Rare /HPF (NEGATIVE) 11/08/17 18:15 Urine Bacteria Negative /HPF (NEGATIVE) 11/08/17 18:15 Hyaline Casts Rare /LPF (NEGATIVE) 11/08/17 18:15 Ur Culture Indicated? No/not indicated 11/08/17 18:15 Hospital Course: WAS ADMITTED ON 10/29/2017 FOR DYSPNEA, CHF EXACERBATION, AND CHEST PAIN. PT IS S/P AMI, ECHO WITH STABLE EF.SHE IS NOTED WITH INCREASED COUGH AND SHORTNESS OF BREATH WAS TREATED WITH BIPAP. CXR WITH PLEURAL EFFUSION, PATIENT DID HAVE PERIOD OF DECLINE IN MENTAL AND PHYSICAL STATUS. SYMPTOMS IMPROVED AND PATIENT WAS DISCHARGED TO [facility] FOR CONTINUED CARE. - Discharge Plan Disposition: 03 XFER SNF Condition: Stable Prescriptions: clopidogrel [Plavix] 75 mg PO DAILY #30 tab furosemide [Lasix] 20 mg PO QAM #30 tab metoprolol tartrate 12.5 mg PO BID #30 tab rosuvastatin [Crestor] 10 mg PO DAILY #30 tab - Follow ups/Referrals Follow ups/Referrals: [facility] [Other] GIL NOVOA [Primary Care Provider] - 1 WEEK - Instructions
== END 2017-11-08 19:00 | DRG 281 ==
LOC: EDACCT# → ICU → OBSVTOIN 18:23
PROVIDERS: ADMIT Internal Medicine; ATTEND Internal Medicine
DX: J44.1 Chronic obstructive pulmonary disease with (acute) exacerbation; R94.4 Abnormal results of kidney function studies; I21.29 ST elevation (STEMI) myocardial infarction involving other sites; R06.02 Shortness of breath; B96.29 Other Escherichia coli [E. coli] as the cause of diseases classified elsewhere; N39.0 Urinary tract infection, site not specified; I12.9 Hypertensive chronic kidney disease with stage 1 through stage 4 chronic kidney disease, or unspecified chronic kidney disease; I95.89 Other hypotension; N18.9 Chronic kidney disease, unspecified; Z66 Do not resuscitate; J90 Pleural effusion, not elsewhere classified; R41.82 Altered mental status, unspecified; K21.9 Gastro-esophageal reflux disease without esophagitis; R07.89 Other chest pain; I50.9 Heart failure, unspecified
CPT/HCPCS: 36415; 36600; 71010; 71045; 80053; 80061; 81001; 82550; 82553; 82803; 83735; 83880; 84484; 85025; 85610; 85730; 87070; 87086; 87088; 87186; 87205; 93005; 93010; 93306; 94640; 94660; 94669; 97167; 97530; A4216; A4222; A4618; A7030; C9113; J0696; J1335; J1450; J1644; J1940; J1956; J2270; J2930; J7040; J7050; J7620; J7626; J7644